=== PATIENT | female | born 1945 | race Caucasian/White ===

== ENCOUNTER 2019-12-14 13:54 | Outpatient (CLI) | payer MEDICARE, SELFPAY ==
--- NOTE | ~2019-12-14 | DEXA_ITS ---
Bone Density Report Name: Joanna Mancilla Age: 74 Sex: Female Ethnicity: White Date of : 1945 Indication: postmenopausal; parental hip fracture; inflammatory bowel disease; Referring Provider: Delmy Carrero Study: Bone densitometry was performed. Exam Date: December 14, 2019 Accession number: [id number] Bone Density: Region BMD T-score Z-score Classification AP Spine (L1-L4) 0.901 -1.3 1.0 Osteopenia Femoral Neck (Left) 0.715 -1.2 0.8 Osteopenia Total Hip (Left) 0.781 -1.3 0.4 Osteopenia Total Hip Bilateral Avg 0.769 -1.4 0.3 Osteopenia Femoral Neck (Right) 0.726 -1.1 0.9 Osteopenia Total Hip (Right) 0.756 -1.5 0.2 Osteopenia World Health Organization criteria for BMD impression classify patients as: Normal (T-score at or above -1.0), Osteopenia (T-score between -1.0 and -2.5), or Osteoporosis (T-score at or below -2.5). 10-year Fracture Risk(1): Major Osteoporotic Fracture 15% Hip Fracture 5.3% Reported Risk Factors: [place] (), Neck BMD=0.715, BMI=28.8, parental fracture (1) FRAX(R) Version 3.08. Fracture probability calculated for an untreated patient. Fracture probability may be lower if the patient has received treatment. Clinical Information Provided by Patient: Parent has had a hip fracture Has the following medical conditions: Inflammatory bowel diseases Patient maximum height was 64 Menopause Age: 46 Drinks caffeinated beverages Onset of menses at age 14 Number of children 1 Impression: The patient has low bone mass, based on the Right Total Hip T-score. The patient has an estimated ten-year risk of hip fracture of 5.3% and an estimated ten-year risk of major fracture of 15%, based on the WHO FRAX algorithm. The patient has risk factors, including: parental hip fracture. Discussion: BONE DENSITY IS LOW AT ONE OR MORE SKELETAL SITES. THE PATIENT'S BMD AND CLINICAL RISK FACTORS CONTRIBUTE TO THIS PATIENT'S INCREASED RISK OF FRACTURE. This patient's lowest T-score is low at one or more skeletal sites. It meets the World Health Organization's (WHO) criteria for ?low bone mass? (T-score between -1.0 and -2.5). The patient's 10-year risk of hip fracture as calculated by FRAX exceeds the threshold where pharmacological therapy is recommended by the National Osteoporosis Foundation (NOF). However, all treatment decisions require clinical judgment and consideration of individual patient factors, including patient preferences, comorbidities, previous drug use, risk factors not captured in the FRAX model (e.g., frailty, falls, vitamin D deficiency, increased bone turnover, interval significant decline in bone density) and possible under or overestimation of fracture risk by FRAX. The patient should follow a healthful lifestyle (good nutrition with adequate calcium and vitamin D, and a
--- NOTE | ~2019-12-14 | MM_ITS ---
EXAMINATION: MM screening josé miguel BI w sari HISTORY: Screening mammogram TECHNIQUE: Craniocaudal and mediolateral oblique 3-D tomosynthesis images were obtained and synthetic 2-D images were generated. CAD analysis was submitted and interpreted. COMPARISON: No prior mammogram is available for comparison at this institution. BREAST PARENCHYMAL COMPOSITION: The breasts are almost entirely fatty. FINDINGS: RIGHT BREAST: An asymmetry is present in the subareolar aspect of the breast on the craniocaudal view . LEFT BREAST: There is a mass in the posterior third of the lower inner breast 9 cm from the nipple.. IMPRESSION: 1. Bilateral breast findings as detailed above. 2. Additional mammographic views and possible breast ultrasound are recommended. BI-RADS Category 0: Incomplete: Needs additional imaging evaluation. Reviewed, dictated and finalized at location A. R ARBITRATOR HEARING OFFICE IMPRESSION: 1. Bilateral breast findings as detailed above. 2. Additional mammographic views and possible breast ultrasound are recommended . BI-RADS Category 0: Incomplete: Needs additional imaging evaluation.
== END 2019-12-14 13:55 | disposition home or self-care (01) ==
LOC: ANHIMG 14:05
PROVIDERS: PCP Family Medicine; Visit Provider Family Medicine
DX: Z12.31 Encounter for screening mammogram for malignant neoplasm of breast (principal); Z78.0 Asymptomatic menopausal state; R92.8 Other abnormal and inconclusive findings on diagnostic imaging of breast; M85.88 Other specified disorders of bone density and structure, other site; M85.852 Other specified disorders of bone density and structure, left thigh; M85.851 Other specified disorders of bone density and structure, right thigh
CPT/HCPCS: 77063; 77067; 77080

== ENCOUNTER 2020-01-06 11:43 | Outpatient (CLI) | payer MEDICARE, SELFPAY ==
--- NOTE | ~2020-01-06 | MMUS_ITS ---
EXAMINATION: MM diagnostic mammo unilat LT, US breast LT limited HISTORY: Follow-up left breast mass TECHNIQUE: Additional 3-D tomosynthesis images of the left breast were performed and synthetic 2-D im ages were generated. CAD analysis was submitted and interpreted. High resolution left breast ultrasou nd was performed. COMPARISON: Comparison to multiple prior studies sequentially, with oldest reviewed study dated 03/2017. FINDINGS: MAMMOGRAPHIC FINDINGS: Breast composed of scattered areas of fibroglandular density. There is a 7 mm spiculated mass in the lower central aspect of the left breast posteriorly. There are no suspicious calcifications or cheri ectural distortion. ULTRASOUND: Left breast ultrasound: At 5:00, 3 cm from the nipple, there is an irregular shaped hypoechoic mass with posterior shadowing and antiparallel configuration measuring 6 x 5 x 5 mm,. At 9:00 near the nipple there is a 3 mm cyst. IMPRESSION: 1. Irregular shaped hypoechoic 6 mm left breast mass at 5:00, 3 cm from the nipple, likely correspond ing to the mammographic finding. Ultrasound-guided biopsy recommended. BI-RADS CATEGORY 4-SUSPICIOUS ABNORMALITY RECOMMENDATION: Ultrasound-guided left breast biopsy recommended. Recommend attention to tissue marke r placement postbiopsy to ensure that the sonographic and mammographic abnormalities are the same. Reviewed, dictated and finalized at location A. MACHINE OPERATOR HELPER IMPRESSION: 1. Irregular shaped hypoechoic 6 mm left breast mass at 5:00, 3 cm from the nip ple, likely corresponding to the mammographic finding. Ultrasound-guided biopsy recommended. BI-RADS CATEGORY 4-SUSPICIOUS ABNORMALITY RECOMMENDATION: Ultrasound-guided left breast biopsy recommended. Recommend att ention to tissue marker placement postbiopsy to ensure that the sonographic and mammographic abnormalities are the same.
== END 2020-01-06 11:44 | disposition home or self-care (01) ==
PROVIDERS: PCP Family Medicine; Visit Provider Family Medicine
DX: R92.8 Other abnormal and inconclusive findings on diagnostic imaging of breast (principal); N63.20 Unspecified lump in the left breast, unspecified quadrant
CPT/HCPCS: 76642; 77065

== ENCOUNTER 2020-01-12 08:58 | Outpatient (CLI) | payer MEDICARE, SELFPAY ==
--- NOTE | ~2020-01-12 | US_ITS ---
EXAMINATION: US GUIDED NEEDLE BIOPSY DATE: 01/12/2020 11:12 PRIVATE DUTY AIDE INDICATION: Irregular hypoechoic 6 x 5 mm mass with posterior shadowing and antiparallel configuratio n at 5:00 3 cm from nipple TECHNIQUE AND FINDINGS: The risks and potential benefits of the procedure were discussed with the patient, and written inform ed consent was obtained. Timeout procedure was performed. After sterile preparation of the left breas t, 1% lidocaine was utilized for local anesthesia. A 14G spring-loaded biopsy gun needle was advanced to the edge of the region of interest from a later al medial approach utilizing sonographic guidance. A total of three tissue core samples were obtaine d through the lesion. An Inrad tissue marker clip was then placed at the biopsy site. Hemostasis was achieved. A sterile bandage was applied. The patient tolerated procedure well and there was no evidence of immediate complication. The patien t was given verbal instructions prior to departing from the department. A two view mammogram was perf ormed to document tissue marker clip placement. The tissue samples were submitted to surgical patholo gy for histologic analysis. IMPRESSION: 1. Successful ultrasound guided biopsy of left breast 5:00 breast mass with biopsy marker placement. Please refer to pathology report for histologic analysis. Reviewed, dictated and finalized at Location A. Reviewed, dictated and finalized at location A. ATE DUTY AIDE IMPRESSION: 1. Successful ultrasound guided biopsy of left breast 5:00 breast mass with bi opsy marker placement. Please refer to pathology report for histologic analysis .
--- NOTE | ~2020-01-12 | MM_ITS ---
MM post biopsy invasive LT DATE: 01/12/2020 10:48 INDICATION: Post ultrasound-guided biopsy mammogram TECHNIQUE: Digital ML and CC views of left breast following ultrasound-guided biopsy of 5:00 lesion COMPARISON: 05/28/2018 outside bilateral digital mammogram FINDINGS: A heart biopsy marker is immediately adjacent to an approximately 7 mm mass in the posterio r aspect of the central lower mid left breast. IMPRESSION: Status post ultrasound-guided biopsy of lower mid left breast mass Reviewed, dictated and finalized at Location A. Reviewed, dictated and finalized at location A. RNET PROJECT MANAGER
== END 2020-01-12 08:59 | disposition home or self-care (01) ==
PROVIDERS: PCP Family Medicine; Visit Provider Family Medicine
DX: R92.8 Other abnormal and inconclusive findings on diagnostic imaging of breast (principal); D05.12 Intraductal carcinoma in situ of left breast
CPT/HCPCS: 19083; 88305; 88342

== ENCOUNTER 2021-09-05 07:38 | Outpatient (CLI) | payer MEDICARE, OTHER, SELFPAY ==
--- NOTE | ~2021-09-05 | XR_ITS ---
EXAMINATION: XR abdomen/kub 1V INDICATION: Right upper quadrant pain TECHNIQUE: Supine views of the abdomen were obtained on 2 radiographs. COMPARISON: None FINDINGS: The bowel gas pattern is normal. There are phleboliths of the pelvis. A moderate volume of colonic stool is present. Osteitis pubis is noted. There is mild osteoarthritis of the hips. Lumbar s pondylosis is noted. There is an area of sclerosis in the left superior pubic ramus. IMPRESSION: 1. No radiographic correlate for the patient's symptoms. 2. Sclerotic lesion of the left superior pubic ramus. Finding could reflect a bone island however giv en patient's history of breast cancer, consider further evaluation with bone scan. Reviewed, dictated and finalized at location A. IMPRESSION: 1. No radiographic correlate for the patient's symptoms. 2. Sclerotic lesion of the left superior pubic ramus. Finding could reflect a b one island however given patient's history of breast cancer, consider further e valuation with bone scan.
== END 2021-09-05 07:39 | disposition home or self-care (01) ==
LOC: ANHIMG 07:41
PROVIDERS: PCP Family Medicine; Visit Provider Family Medicine
DX: R10.11 Right upper quadrant pain (principal); Z85.3 Personal history of malignant neoplasm of breast
CPT/HCPCS: 74018

== ENCOUNTER 2021-09-20 09:19 | Outpatient (CLI) | payer MEDICARE, SELFPAY ==
--- NOTE | ~2021-09-20 | NM_ITS ---
EXAMINATION: NM bone scan whole body DATE: 09/20/2021 12:37 INDICATION: Sclerotic lesion in left superior pubic ramus. Breast cancer. TECHNIQUE: 25.9 mCi Tc-99m HDP was administered intravenously. Delayed whole-body scintigrams were o btained. COMPARISON: Abdomen radiographs 09/05/2021 FINDINGS: There is joint-centered increased activity in the shoulders, knees, hands, and feet without radiographic comparison, likely osteoarthritis. There is focal increased activity in multiple contig uous bilateral ribs, consistent with age indeterminant fractures. There is increased activity in the spine correlating with spondylosis on radiographs. IMPRESSION: 1. No specific evidence of metastatic disease. Reviewed, dictated and finalized at location A. RITY RESEARCHER
--- NOTE | ~2021-09-20 | US_ITS ---
US right upper quadrant INDICATION: Right upper quadrant pain PROCEDURE: Realtime right upper abdominal ultrasound. COMPARISON: No prior studies for comparison. FINDINGS: The pancreas is normal without focal mass or pancreatic ductal dilation. Liver echotexture is normal without focal mass or intrahepatic biliary dilatation. There is normal directional flow i n the portal vein. The gallbladder is normal without stones, gallbladder wall thickening or pericholecystic fluid. Comm on bile duct measures 3 mm. No sonographic Davis's sign. IMPRESSION: 1: Normal limited abdominal ultrasound. Reviewed, dictated and finalized at location A. KLAYER HELPER
== END 2021-09-20 09:20 | disposition home or self-care (01) ==
LOC: ANHIMG 09:20
PROVIDERS: PCP Family Medicine; Visit Provider Family Medicine
DX: R10.11 Right upper quadrant pain (principal); R93.89 Abnormal findings on diagnostic imaging of other specified body structures
CPT/HCPCS: 76705; 78306; A9561

== ENCOUNTER 2022-04-05 08:26 | Outpatient (CLI) | payer MEDICARE, SELFPAY ==
--- NOTE | ~2022-04-05 | DEXA_ITS ---
Bone Density Report Name: CAROLINA CONRAD Age: 76 Sex: Female Ethnicity: White Date of : 1945 Indication: osteopenia; monitoring treatment; parental hip fracture; height loss; inflammatory bowel disease; prior fracture; cancer; postmenopausal Referring Provider: ESEQUIEL, ELMER Bustos Study: Bone densitometry was performed. Exam Date: April 05, 2022 Accession number: [id number] Bone Density: Region BMD T-score Z-score Classification AP Spine(L1, L2, L3) 0.821 -1.8 0.6 Osteopenia Femoral Neck (Left) 0.565 -2.6 -0.4 Osteoporosis Total Hip (Left) 0.729 -1.7 0.1 Osteopenia Femoral Neck (Right) 0.637 -1.9 0.2 Osteopenia Total Hip (Right) 0.677 -2.2 -0.3 Osteopenia Total Hip Mean 0.703 -2.0 -0.1 Osteopenia World Health Organization criteria for BMD impression classify patients as: Normal (T-score at or above -1.0), Osteopenia (T-score between -1.0 and -2.5), or Osteoporosis (T-score at or below -2.5). 10-year Fracture Risk: FRAX not reported because: Some T-score for Spine Total or Hip Total or Femoral Neck at or below -2.5 Treated for osteoporosis Previous Exams: Region Exam Age BMD T-score BMD Change BMD Change Date g/cm2 vs Baseline vs Previous AP Spine (L1-L3) 04/05/2022 76 0.821 -1.8 -0.040 (-4.6%) -0.040 (-4.6%) 12/14/2019 74 0.861 -1.4 Total Hip(Left) 04/05/2022 76 0.729 -1.7 -0.052 (-6.6%) -0.052 (-6.6%) 12/14/2019 74 0.781 -1.3 Total Hip(Right) 04/05/2022 76 0.677 -2.2 -0.080 (-10.5% -0.080 (-10.5% 12/14/2019 74 0.756 -1.5 *Denotes significance at 95% confidence level, LSC for AP Spine = 0.022 g/cm2, LSC for Total Hip = 0.027 g/cm2 # Denotes dissimilar scan types or analysis methods Clinical Information Provided by Patient: Has had a low trauma fracture Parent has had a hip fracture Is being treated for osteoporosis Has used the following medications: Fosamax (i.e. alendronate), Vitamin D, Calcium Has the following medical conditions: Cancer, Inflammatory bowel diseases Patient maximum height was 64 Menopause Age: 46 Drinks caffeinated beverages Onset of menses at age 13 Number of children 1 Impression: The patient has established osteoporosis, based on the Left Femoral Neck T-score and the existence of a prior fracture. The patient has risk factors, including: parental hip fracture, previous fracture. No significant bone loss was observed. Discussion: PATIENT UNDER TREATMENT WITH NO SIGNIFICANT BMD
== END 2022-04-05 08:27 | disposition home or self-care (01) ==
PROVIDERS: PCP Family Medicine; Visit Provider Internal Medicine Medical Oncology
DX: M81.0 Age-related osteoporosis without current pathological fracture (principal); M85.88 Other specified disorders of bone density and structure, other site; M85.851 Other specified disorders of bone density and structure, right thigh; Z79.811 Long term (current) use of aromatase inhibitors; C50.512 Malignant neoplasm of lower-outer quadrant of left female breast; Z17.0 Estrogen receptor positive status [ER+]; Z13.820 Encounter for screening for osteoporosis; C18.2 Malignant neoplasm of ascending colon; Z15.89 Genetic susceptibility to other disease; Z15.01 Genetic susceptibility to malignant neoplasm of breast; Z15.09 Genetic susceptibility to other malignant neoplasm; M85.852 Other specified disorders of bone density and structure, left thigh
CPT/HCPCS: 77080

== ENCOUNTER 2022-04-10 01:07 | Day surgery (SDC) | payer MEDICARE, SELFPAY ==
[2022-03-29 09:20] VITALS: BMI 31.1
[2022-04-10 07:44] VITALS: BP 146/93; PULSE 64; RESP 18; TEMP 36.7; O2SAT 100; BMI 31.1
[2022-04-10] MEDS: LACTATED RINGERS 1,000 ML 150 ML IV CONT (07:53)
--- NOTE | 2022-04-10 08:14 | WPDANESEPPF ---
Anes - Initial Pre Proc Eval Procedure: Operation Date: 04/10/22 09:00 Proposed Procedures p Colonoscopy - Nate Young MD Date/Time: 04/10/22 08:14 Surgeon: Nate Young MD Pre Op Diagnosis: change in bowel habits; fam hx colon ca Patient Data Age: 76 Gender: F Height: 1.6 m Weight: 79.7 kg Last Vital Signs Temp 98.0 F 04/10/22 07:44 Pulse 64 04/10/22 07:44 Resp 18 04/10/22 07:44 BP 146/93 H 04/10/22 07:44 Pulse Ox 100 04/10/22 07:44 O2 Del Method Room Air 04/10/22 07:44 Allergies Allergy/AdvReac Type Severity Reaction Status Date / Time Sulfa (Sulfonamide AdvReac Unknown Headache Verified 04/10/22 07:42 Antibiotics) Home Medications Medication Instructions Recorded Confirmed Type calcium carbonate 600 mg calcium 600 mg PO BID 01/18/20 04/10/22 History (1,500 mg) tablet cholecalciferol (vitamin D3) 10 400 unit PO DAILY 01/18/20 04/10/22 History mcg (400 unit) tablet (Vitamin D3) letrozole 2.5 mg tablet 2.5 mg PO DAILY 05/19/20 04/10/22 History alendronate 35 mg tablet See Rx Instructions .Route 12/12/21 04/10/22 Rx .COMPLEX #12 tabs lisinopril 5 mg tablet See Rx Instructions .Route 02/11/22 04/10/22 Rx .COMPLEX #90 tabs lisinopril 20 mg tablet 20 mg PO DAILY #90 tabs 02/28/22 04/10/22 Rx vit C 250 mg-E 90 mg-zinc 40 1 tablet PO QAM AND QPM 03/14/22 04/10/22 History mg-copper 1 [id number] chew tablet (PreserVision AREDS-2) Patient hx anesthesia problems: none Family hx anesthesia problems: none Results Review: All pre-operative results and documents have been reviewed as part of the pre-operative evaluation. 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 Microscopic hematuria Osteopenia Surgical History Surgical History History of cataract extraction (~2015) History of lumpectomy of left breast (~2019) History of tonsillectomy (~1965) Family History Family History Mother Diabetes mellitus Family history of osteoporosis Family history of glaucoma Hypertension Cerebrovascular accident Carcinoma of colon Family history of lung disease Family history of hearing loss Father Family history of glaucoma Hypertension Family history of chronic obstructive pulmonary disease Family history of congestive heart failure Sibling Family history of malignant melanoma Social History Social History (Updated 03/14/22 @ 09:31 by Eileen Herrera [facility]) Smoking packs per day: 1 Smoking cigarettes per day: 20.0 Years smoked: 10 Smoking pack-years: 10.00 Tobacco type: cigarettes Smoking end date: 11/10/80 Alcohol intake: current Alcohol use details: very occasional Substance use: never Substance use type: does not use Living arrangements: alone Spiritual care concerns: No Anes - Eval Final PreProcedure Day of Procedure 04/10/22 08:14 Patient weight: obese Heart: regular rate and rhythm Lungs: clear to auscultation Airway: Mallampati scale class II Neurological: alert and oriented Last oral intake: >/= 8 hours ASA classification: III Emergent: no Anesthetic plan: proceed Anesthesia type and monitoring: general GIVS and standard monitoring Results Review: All pre-operative results and documents have been reviewed as part of the pre-operative evaluation. Informed Consent: The patient's anesthetic plan and its attendant risks and benefits were discussed with the patient/family/POA. Questions were solicited and answers provided to the satisfaction of the patient/family/POA.
--- NOTE | 2022-04-10 08:17 | WPDGICN ---
Assessment and Plan Assessment and plan (1) Family history of colon cancer in mother: Code(s): Z80.0 - Family history of malignant neoplasm of digestive organs Status: Acute Assessment and Plan: Patient's mother had colon cancer. For this reason surveillance colonoscopy had been advised at 5 year intervals. (2) History of colon polyps: Code(s): Z86.010 - Personal history of colonic polyps Status: Acute Assessment and Plan: Patient has a prior history of colon polyps. Most recently 2016. Plan is for surveillance colonoscopy now and consider this at intervals in the future. Patient does have a recent history of constipation the is improved on taking MiraLax. GI Consult Note Consult date/time: 04/10/22 08:17 Reason for consult: Family history of colon cancer and personal history of polyps. HPI: Joanna Mancilla is a 76 year old female Presents for colonoscopy. She recently had bout of constipation. This occurred 1 month ago and improved on starting MiraLax. She reports that her mother had colon cancer. She has previously had colonoscopy with colon polyps 2016. Patient denies any blood in her stools. Her weight remains stable. She has had some vague low back pain. She presents today for neoplasia screening colonoscopy. Review of Systems Review of Systems: Review of systems noncontributory. 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 Microscopic hematuria Osteopenia Surgical History Surgical History History of cataract extraction (~2015) History of lumpectomy of left breast (~2019) History of tonsillectomy (~1965) Family History Family History Mother Diabetes mellitus Family history of osteoporosis Family history of glaucoma Hypertension Cerebrovascular accident Carcinoma of colon Family history of lung disease Family history of hearing loss Father Family history of glaucoma Hypertension Family history of chronic obstructive pulmonary disease Family history of congestive heart failure Sibling Family history of malignant melanoma Social History Social History (Updated 03/14/22 @ 09:31 by Eileen Herrera [facility]) Smoking packs per day: 1 Smoking cigarettes per day: 20.0 Years smoked: 10 Smoking pack-years: 10.00 Tobacco type: cigarettes Smoking end date: 11/10/80 Alcohol intake: current Alcohol use details: very occasional Substance use: never Substance use type: does not use Living arrangements: alone Spiritual care concerns: No Meds Home Medications and Allergies Home Medications Medication Instructions Recorded Confirmed Type calcium carbonate 600 mg calcium 600 mg PO BID 01/18/20 04/10/22 History (1,500 mg) tablet cholecalciferol (vitamin D3) 10 400 unit PO DAILY 01/18/20 04/10/22 History mcg (400 unit) tablet (Vitamin D3) letrozole 2.5 mg tablet 2.5 mg PO DAILY 05/19/20 04/10/22 History alendronate 35 mg tablet See Rx Instructions .Route 12/12/21 04/10/22 Rx .COMPLEX #12 tabs lisinopril 5 mg tablet See Rx Instructions .Route 02/11/22 04/10/22 Rx .COMPLEX #90 tabs lisinopril 20 mg tablet 20 mg PO DAILY #90 tabs 02/28/22 04/10/22 Rx vit C 250 mg-E 90 mg-zinc 40 1 tablet PO QAM AND QPM 03/14/22 04/10/22 History mg-copper 1 [id number] chew tablet (PreserVision AREDS-2) Allergies Allergy/AdvReac Type Severity Reaction Status Date / Time Sulfa (Sulfonamide AdvReac Unknown Headache Verified 04/10/22 07:42 Antibiotics) Vital Signs Vital Signs - 24 hr 04/10/22 07:44 Temperature 98.0 F Pulse Rate 64 Respiratory Rate 18 Blood Pres
[2022-04-10 09:29] VITALS: BP 126/70; PULSE 66; RESP 15; O2SAT 97
[2022-04-10 09:39] VITALS: BP 122/78; PULSE 61; RESP 17; O2SAT 98
[2022-04-10 09:49] VITALS: BP 148/81; PULSE 56; RESP 15; O2SAT 100
== END 2022-04-10 09:57 | disposition home or self-care (01) ==
PROVIDERS: PCP Family Medicine; Visit Provider Internal Medicine Gastroenterology
PROC: 0DJD8ZZ Inspection of Lower Intestinal Tract, Via Natural or Artificial Opening Endoscopic (ICD-10-PCS; CPT 45378; principal; 2022-04-10 09:00)
DX: Z12.11 Encounter for screening for malignant neoplasm of colon (principal); K57.30 Diverticulosis of large intestine without perforation or abscess without bleeding; K64.8 Other hemorrhoids; Z80.0 Family history of malignant neoplasm of digestive organs; Z86.010 Personal history of colon polyps; I10 Essential (primary) hypertension; F32.A Depression, unspecified; Z85.3 Personal history of malignant neoplasm of breast; Z87.891 Personal history of nicotine dependence; E66.9 Obesity, unspecified; Z68.31 Body mass index [BMI] 31.0-31.9, adult
CPT/HCPCS: G0105; J2001; J2704; J7120

== ENCOUNTER 2022-05-09 12:56 | Outpatient (CLI) | payer MEDICARE, SELFPAY ==
--- NOTE | ~2022-05-09 | US_ITS ---
US soft tissue head and neck 05/09/2022 15:01 Indication: Localized swelling, mass and lump of the head. Procedure: High-resolution Limited ultrasound of the right occipital region Comparison: No prior studies for comparison. Findings: In the area of palpable concern there is a hypoechoic oval-shaped mass with parallel orient ation measuring 7 x 7 x 2 mm. There is internal vascularity. No significant posterior features. Impression: 1: 7 mm oval hypoechoic mass of the right occipital soft tissues with internal vascularity. This may represent a pathologic lymph node or complicated sebaceous cysts. Consider surgical excision. Reviewed, dictated and finalized at location A. Impression: 1: 7 mm oval hypoechoic mass of the right occipital soft tissues with internal vascularity. This may represent a pathologic lymph node or complicated sebaceou s cysts. Consider surgical excision.
== END 2022-05-09 12:57 | disposition home or self-care (01) ==
PROVIDERS: PCP Family Medicine; Visit Provider Family Medicine
DX: R22.0 Localized swelling, mass and lump, head (principal); Z85.3 Personal history of malignant neoplasm of breast
CPT/HCPCS: 76536

== ENCOUNTER 2022-05-16 10:56 | Outpatient (CLI) | payer MEDICARE, SELFPAY ==
--- NOTE | ~2022-05-16 | CT_ITS ---
EXAMINATION: CT brain wo/w con DATE: 05/16/2022 11:46 INDICATION: Palpable lump behind the right ear. TECHNIQUE: Computed tomography (CT) of the head was performed without and with 100 cc Omnipaque 300 i ntravenous contrast. The dose-length product was 605.33 mGy-cm. Automated exposure control and iterat mariana reconstruction technique were employed. COMPARISON: None FINDINGS: Mild generalized brain parenchymal volume loss. There are scattered mild periventricular an d subcortical white matter changes, most likely related to small vessel ischemic disease (microangiop athy). Basilar cisterns are patent. No ventriculomegaly or midline shift. No acute intracranial hemor rhage, infarction, mass or mass effect. There is intracranial atherosclerosis. No abnormal contrast e nhancement. Paranasal sinuses and mastoids are pneumatized. No depressed skull fractures. IMPRESSION: 1. No acute intracranial abnormality. 2: Chronic age-related findings. Reviewed, dictated and finalized at location A.
--- NOTE | ~2022-05-16 | CT_ITS ---
EXAMINATION: CT soft tissue neck w con DATE: 05/16/2022 11:47 INDICATION: Cervical lymphadenopathy TECHNIQUE: Computed tomography (CT) of the neck was performed with 75 mL Omnipaque-300 intravenous co ntrast. Automated exposure control and iterative reconstruction technique were employed. The dose-emilia gth product was 455.39 mGy-cm. COMPARISON: None FINDINGS: Visualized upper lungs are clear. Thoracic aorta is normal in caliber with minimal atherosc lerotic calcification and no dissection. Left vertebral artery is dominant. Cervical vasculature is o therwise unremarkable. Multinodular goiter with largest nodule measuring 1.3 cm in the left thyroid g land. Bilateral parotid and submandibular glands are normal. There are scattered normal-sized lymph n odes in the neck, no lymphadenopathy. C5 interval decrease in size of a previously 7 x 7 x 3 mm, curr ently 5 x 5 x 3 mm scalp nodules in the right occipital region likely representing a previously react mariana lymph node. No other abnormal masses identified. Airway is unremarkable. Changes of bilateral int raocular lens replacement. The orbits are otherwise normal. Visualized sinuses and mastoid air cells are normal. Moderate lower cervical spondylosis. IMPRESSION: 1. Interval decrease in size of a previously 7 x 7 x 3 mm, currently 5 x 5 x 3 mm right occipital sca lp nodule most likely reactive lymph node. No pathologically enlarged cervical lymphadenopathy. 2. Multinodular goiter with nodules measuring up to 1.3 cm. Reviewed, dictated and finalized at location A. IMPRESSION: 1. Interval decrease in size of a previously 7 x 7 x 3 mm, currently 5 x 5 x 3 mm right occipital scalp nodule most likely reactive lymph node. No pathologica lly enlarged cervical lymphadenopathy. 2. Multinodular goiter with nodules measuring up to 1.3 cm.
[2022-05-16 11:27] LABS: Estimated Glomerular Filt Rate > 60
== END 2022-05-16 10:57 | disposition home or self-care (01) ==
PROVIDERS: PCP Family Medicine; Visit Provider Internal Medicine Medical Oncology
DX: R59.9 Enlarged lymph nodes, unspecified (principal); E04.2 Nontoxic multinodular goiter
CPT/HCPCS: 70470; 70491; Q9967

== ENCOUNTER 2022-12-03 09:47 | Outpatient (CLI) | payer MEDICARE, OTHER, SELFPAY ==
[2022-12-03 19:58] LABS: Alanine Aminotransferase 24 U/L (6-35); Alkaline Phosphatase 94 U/L (38-126); Anion Gap 5 mmol/L (8-16); Aspartate Amino Transferase 32 U/L (14-36); Bilirubin,Total 0.5 mg/dL (0.2-1.3); Blood Urea Nitrogen 22 mg/dL (7-17); Calcium 9.4 mg/dL (8.4-10.2); Carbon Dioxide 30 mmol/L (22-30); Chloride 102 mmol/L (98-107); Cholesterol 183 mg/dL (0-200); Estimated Glomerular Filt Rate > 60; Glucose 87 mg/dL (65-110); HDL Direct 53 mg/dL; Sodium 137 mmol/L (137-145); Triglycerides 119 mg/dL (<150)
[2022-12-03 20:09] LABS: LDL Cholesterol Direct 82 mg/dL
[2022-12-03 20:20] LABS: Vitamin D 25 Hydroxy 45.7 ng/mL
== END 2022-12-03 09:48 | disposition home or self-care (01) ==
LOC: ANHGOSHLAB 09:49
PROVIDERS: PCP Family Medicine; Visit Provider Nurse Practitioner
DX: E78.5 Hyperlipidemia, unspecified (principal); E55.9 Vitamin D deficiency, unspecified
CPT/HCPCS: 36415; 80053; 80061; 82306

== ENCOUNTER 2023-04-02 09:39 | Outpatient (CLI) | payer MEDICARE, SELFPAY ==
[2023-04-02 13:25] LABS: Alanine Aminotransferase 23 U/L (6-35); Albumin Level 3.9 g/dL (3.5-5.1); Alkaline Phosphatase 97 U/L (38-126); Anion Gap 5 mmol/L (8-16); Aspartate Amino Transferase 39 U/L (14-36); Bilirubin,Total 0.4 mg/dL (0.2-1.3); Blood Urea Nitrogen 30 mg/dL (7-17); Calcium 9.3 mg/dL (8.4-10.2); Carbon Dioxide 30 mmol/L (22-30); Chloride 103 mmol/L (98-107); Cholesterol 161 mg/dL (0-200); Estimated Glomerular Filt Rate > 60; Glucose 88 mg/dL (65-110); HDL Direct 56 mg/dL; Potassium 4.1 mmol/L (3.4-5.0); Sodium 138 mmol/L (137-145); Triglycerides 74 mg/dL (<150)
[2023-04-02 13:36] LABS: LDL Cholesterol Direct 73 mg/dL
== END 2023-04-02 09:40 | disposition home or self-care (01) ==
LOC: ANHGOSHLAB 09:40
PROVIDERS: PCP Family Medicine; Visit Provider Family Medicine
DX: E78.5 Hyperlipidemia, unspecified (principal); I10 Essential (primary) hypertension; Z79.899 Other long term (current) drug therapy
CPT/HCPCS: 36415; 80053; 80061

== ENCOUNTER 2023-05-08 16:08 | Emergency (ER) | payer MEDICARE, SELFPAY ==
[2023-05-08 16:18] VITALS: BP 124/88; PULSE 76; RESP 16; TEMP 36.8; O2SAT 99
--- NOTE | 2023-05-08 16:18 | ED.ABDPAIN ---
HPI - Abdominal Pain General Chief Complaint: Nausea/Vomiting/Diarrhea Stated Complaint: nausea & diarrhea Time Seen by Provider: 05/08/23 16:18 Source: patient, RN notes reviewed and old records reviewed Mode of arrival: ambulatory Limitations: no limitations History of Present Illness HPI narrative: 78-year-old female presents to the [facility] with complaints of diarrhea. Patient states that she has 3 episodes of diarrhea every morning since starting antibiotics. Patient was recently diagnosed with the UTI, started some Macrobid, could not tolerate the symptoms, primary switched to Cipro. Reports finishing the Cipro 4 days ago. No longer has the urinary symptoms but states that she has had 3 loose stools every morning. Denies and any abdominal pain. No fevers. Tolerating food and liquid without issue. Patient states that she has concern for C diff, explained to patient that we cannot test that she can contact her primary or go to the ER. Related Data Home Medications Medication Instructions Recorded Confirmed calcium carbonate 600 mg calcium 600 mg PO BID 01/18/20 04/04/23 (1,500 mg) tablet cholecalciferol (vitamin D3) 10 400 unit PO DAILY 01/18/20 04/04/23 mcg (400 unit) tablet (Vitamin D3) letrozole 2.5 mg tablet 2.5 mg PO DAILY 05/19/20 04/04/23 vit C 250 mg-E 90 mg-zinc 40 1 tablet PO QAM AND QPM 03/14/22 04/04/23 mg-copper 1 ls-vrjgen-lpehag chew tablet (PreserVision AREDS-2) denosumab 60 mg/mL subcutaneous 60 mg subcut [id number] 07/18/22 04/04/23 syringe (Prolia) ketoconazole 2 % topical cream 1 applic topical BID 04/04/23 04/04/23 mupirocin 2 % topical ointment 1 applic topical BID 04/04/23 04/04/23 Allergies Allergy/AdvReac Type Severity Reaction Status Date / Time nitrofurantoin AdvReac Intermediate Diarrhea Verified 05/01/23 08:52 Sulfa (Sulfonamide AdvReac Unknown Headache Verified 04/04/23 09:23 Antibiotics) Review of Systems Review of Systems: All systems reviewed & are unremarkable except as noted in HPI and below Constitutional: Constitutional: Reports no additional constitutional complaints Eyes: Eyes: Reports no additional eye complaints ENT: Reports system reviewed and no additional complaints, except as documented Cardiovascular: Cardiovascular: Reports no additional cardiovascular complaints, Denies chest pain and Denies dyspnea Respiratory: Respiratory: Reports no additional respiratory complaints, Denies chest congestion, Denies cough and Denies dyspnea Gastrointestinal: Gastrointestinal: Reports as per HPI, Denies abdominal pain, Reports diarrhea, Denies nausea and Denies vomiting Musculoskeletal: Musculoskeletal: Reports no additional musculoskeletal complaints Integumentary/Breasts: Skin/Breast: Reports system reviewed and no additional complaints, except as docu Neurologic: Reports system reviewed and no additional complaints, except as documented Psychiatric: Psychiatric: Reports no additional psychiatric complaints Allergic/Immunologic: Allergic/Immunologic: Reports no additional allergic/immunologic complaints [facility] Past Medical History Medical History Arthritis Carcinoma of left breast Depression Diverticulitis Hammer toe (~08/2016) Hepatitis C antibody test negative (07/18/21) 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
== END 2023-05-08 16:45 | disposition home or self-care (01) ==
PROVIDERS: Emergency Provider Nurse Practitioner; PCP Family Medicine
DX: R19.7 Diarrhea, unspecified (principal); Z87.891 Personal history of nicotine dependence; M19.90 Unspecified osteoarthritis, unspecified site; I10 Essential (primary) hypertension; M85.80 Other specified disorders of bone density and structure, unspecified site; Z85.3 Personal history of malignant neoplasm of breast
CPT/HCPCS: 99211; G0463

== ENCOUNTER 2023-06-10 11:05 | Outpatient (CLI) | payer MEDICARE, SELFPAY ==
[2023-06-10 09:16] LABS: Toxigenic C. Diff NEGATIVE (NEGATIVE)
== END 2023-06-10 11:06 | disposition home or self-care (01) ==
PROVIDERS: PCP Family Medicine; Visit Provider Internal Medicine Gastroenterology
DX: R19.7 Diarrhea, unspecified (principal)
CPT/HCPCS: 87045; 87427; 87449; 87493; 89055

== ENCOUNTER 2023-06-20 14:56 | Outpatient (CLI) | payer MEDICARE, SELFPAY ==
[2023-06-20 16:10] LABS: Immature Reticulocyte Fraction 20.6 % (3.0-15.9); Reticulocyte Hemoglobin Conten 32.5 pg (28.2-35.7); Reticulocyte Percent 2.27 % (0.7-4.3); Reticulocytes Absolute 0.08 M/mm3 (0.02-0.1)
[2023-06-20 16:19] LABS: Iron 25 ug/dL (37-170)
[2023-06-20 16:29] LABS: Percent Iron Saturation 9 % (20-50)
[2023-06-20 17:27] LABS: Folic Acid 6.7 ng/mL (2.76->20)
== END 2023-06-20 14:57 | disposition home or self-care (01) ==
LOC: ANHLAB 14:58
PROVIDERS: PCP Family Medicine; Visit Provider Internal Medicine Medical Oncology
DX: R19.7 Diarrhea, unspecified (principal); D64.9 Anemia, unspecified
CPT/HCPCS: 36415; 82607; 82728; 82746; 83540; 83550; 85046

== ENCOUNTER 2023-06-21 07:47 | Outpatient (NON) | payer MEDICARE, SELFPAY ==
[2023-06-29 19:02] LABS: Pancreatic Elastase, Stool 190 mcg/g
== END 2023-06-21 07:48 | disposition home or self-care (01) ==
PROVIDERS: PCP Family Medicine; Visit Provider Internal Medicine Medical Oncology
DX: D64.9 Anemia, unspecified (principal); R19.7 Diarrhea, unspecified
CPT/HCPCS: 82653; 87493

== ENCOUNTER → 2023-07-16 14:00 | Outpatient (CLI) | payer MEDICARE, SELFPAY ==
--- NOTE | ~2023-07-16 | XR_ITS ---
Clinical Indication: Cough PA and lateral of the chest: Comparison: None Findings: The lungs are clear, without evidence of focal consolidation or pleural effusion. Cardiome diastinal silhouette is within normal limits. Bones and soft tissues are unremarkable. Impression: Normal chest. Reviewed, dictated and finalized at location . Impression: Normal chest.
== END ==
PROVIDERS: PCP Family Medicine; Visit Provider Family Medicine
DX: R05.9 Cough, unspecified (principal)
CPT/HCPCS: 71046

== ENCOUNTER → 2023-08-11 14:09 | Outpatient (CLI) | payer MEDICARE, SELFPAY ==
--- NOTE | ~2023-08-11 | XR_ITS ---
XR hip LT min 2V DATE: 08/11/2023 14:18 INDICATION: Left hip pain. No injury. TECHNIQUE: AP and lateral views COMPARISON: None FINDINGS: No fracture or dislocation, avascular necrosis or bone destruction of the left hip is detec teagan. Mild left hip osteoarthritis. Normal alignment at the pubic symphysis and sacroiliac joints. Diffuse osteopenia. IMPRESSION: Mild left hip osteoid arthritis Osteopenia Reviewed, dictated and finalized at location B.
== END ==
PROVIDERS: PCP Family Medicine; Visit Provider Nurse Practitioner
DX: M16.12 Unilateral primary osteoarthritis, left hip (principal); M85.852 Other specified disorders of bone density and structure, left thigh
CPT/HCPCS: 73502

== ENCOUNTER 2023-12-30 07:10 | Emergency (ER) | payer MEDICARE, SELFPAY ==
[2023-12-30] VITALS (12 sets, daily range): BP systolic 138–161; BP diastolic 73–98; PULSE 72–76; RESP 16–18; TEMP 36.9; O2SAT 97–100
--- NOTE | ~2023-12-30 | CT_ITS ---
EXAMINATION: CT facial & cervical spine wo DATE: 12/30/2023 10:35 INDICATION: Head injury TECHNIQUE: Computed tomography (CT) of the maxillofacial region and cervical spine was performed with out intravenous contrast. The dose-length product (DLP) was 164.03 mGy-cm. Automated exposure control and iterative reconstruction technique were employed. COMPARISON: None FINDINGS: MAXILLOFACIAL CT: There are comminuted and displaced bilateral nasal bone fractures. No additional facial fracture is i dentified. The globes and orbits are normal. There is peripheral opacification of the left maxillary sinus. There is eruption of one of the left mandibular molar roots into the maxillary sinus. CERVICAL SPINE CT: There are 2 mm of anterolisthesis of C4 on C5. There is moderate loss of intervertebral disc space he ight at C5-6 and C6-7. The odontoid process is intact. The vertebral body heights are maintained. The re is no fracture. There is moderate bilateral uncovertebral joint osteoarthritis at C5-6 and C6-7. T here is a 1.4 cm nodule of the left thyroid. There is a 5 mm nodule of the right thyroid. IMPRESSION: 1. Comminuted and displaced bilateral nasal bone fractures. 2. Moderate cervical spondylosis without acute findings. Reviewed, dictated and finalized at location L. ER MECHANIC
--- NOTE | ~2023-12-30 | CT_ITS ---
EXAMINATION: CT brain wo con INDICATION: Head injury COMPARISON: 05/16/2022 TECHNIQUE: Standard unenhanced head CT. The dose-length product (DLP) was 605.33 mGy-cm. The mA was a djusted according to patient size. Iterative reconstruction technique was employed. FINDINGS: There is subtle perifalcine hyperdensity anteriorly measuring up to 2 mm in thickness No ac [place] intraparenchymal hemorrhage. No evidence of mass lesion. No evidence of acute infarction. There i s mild periventricular and subcortical hypodensity probably related to small vessel ischemic disease. There is mild prominence of the sulci and ventricles related to cerebral atrophy. Intracranial calci fied cerebral atherosclerosis is noted. No mass effect or midline shift. Changes in the globes are li kaylyn from ocular lens surgery. A fluid level is noted in left maxillary sinus. IMPRESSION: 1. Possible tiny perifalcine subdural hematoma anteriorly. 2. Age related findings. These findings were discussed with Gerri Alvarez PA-C in the Emergency Department at 1100 hours on 12/30/2023. Reviewed, dictated and finalized at location L. T MAINTENANCE SUPERVISOR IMPRESSION: 1. Possible tiny perifalcine subdural hematoma anteriorly. 2. Age related findings. These findings were discussed with Gerri Alvarez PA-C in the Emergency Depar tment at 1100 hours on 12/30/2023.
--- NOTE | ~2023-12-30 | XR_ITS ---
EXAMINATION: XR ribs LT 2V w CXR 2V INDICATION: Left-sided chest pain TECHNIQUE: PA and lateral views of the chest and four views of the left ribs were obtained. COMPARISON: 07/16/2023 FINDINGS: The lungs are free of acute opacities. No pleural effusion or pneumothorax. The cardiomedia stinal silhouette is normal. There is moderate thoracic spondylosis. There is subtle anterolateral ir regularity of the left sixth and seventh ribs. IMPRESSION: 1. Mild anterolateral irregularity of the left sixth and seventh ribs, consistent with age indetermin ate fractures. 2. No acute cardiopulmonary abnormality. Reviewed, dictated and finalized at location L. UMER INSIGHTS SPECIALIST IMPRESSION: 1. Mild anterolateral irregularity of the left sixth and seventh ribs, consiste nt with age indeterminate fractures. 2. No acute cardiopulmonary abnormality.
--- NOTE | 2023-12-30 10:13 | ED.FALL ---
HPI - Fall General Chief Complaint: Fall <Gerri Alvarez PA-C - Last Filed: 12/30/23 19:19> Stated Complaint: tripped and landed on face, nose injury <Gerri Alvarez PA-C - Last Filed: 12/30/23 19:19> Time Seen by Provider: 12/30/23 10:04 <Gerri Alvarez PA-C - Last Filed: 12/30/23 19:19> Source: patient <SAMANTHA Zimmerman Last Filed: 12/30/23 19:19> Mode of arrival: ambulatory <SAMANTHA Zimmerman Last Filed: 12/30/23 19:19> Limitations: no limitations <Gerri Alvarez PA-C - Last Filed: 12/30/23 19:19> History of Present Illness HPI Narrative: This is a 78-year-old female that presents to the emergency department for a fall today with head injury. Reports she tripped and fell forward. She did hit her head, did not lose consciousness. Reports injury to the nose, chin and left side of her ribs. She has been ambulatory since the fall. She is not on any anticoagulation. Denies vision changes, vomiting, numbness or weakness. <Gerri Alvarez PA-C - Last Filed: 12/30/23 19:19> Related Data Home Medications: Home Medications Medication Instructions Recorded Confirmed letrozole 2.5 mg tablet 2.5 mg PO DAILY 05/19/20 12/15/23 vit C 250 mg-E 90 mg-zinc 40 1 tablet PO QAM AND QPM 03/14/22 12/15/23 mg-copper 1 qj-ymmdhl-bmyeoy chew tablet (PreserVision AREDS-2) denosumab 60 mg/mL subcutaneous 60 mg subcut [id number] 07/18/22 12/15/23 syringe (Prolia) ferrous sulfate 325 mg (65 mg mg PO 07/10/23 12/15/23 iron) tablet <SAMANTHA Zimmerman Last Filed: 12/30/23 19:19> Allergies/Adverse Reactions: Allergies Allergy/AdvReac Type Severity Reaction Status Date / Time nitrofurantoin AdvReac Intermediate Diarrhea Verified 12/30/23 07:42 Sulfa (Sulfonamide AdvReac Unknown Headache Verified 12/30/23 07:42 Antibiotics) <Gerri Alvarez PA-C - Last Filed: 12/30/23 19:19> Review of Systems Review of Systems: CONSTITUTIONAL: Denies fever EYES: Denies visual changes CARDIOVASCULAR: Reports rib pain RESPIRATORY: Denies dyspnea. GASTROINTESTINAL: Denies abdominal pain, nausea, vomiting MUSCULOSKELETAL: Denies back pain, joint pain, or myalgia. NEUROLOGIC: Denies numbness, or weakness. <SAMANTHA Zimmerman Last Filed: 12/30/23 19:19> All systems reviewed & are unremarkable except as noted in HPI and below <Gerri Alvarez PA-C - Last Filed: 12/30/23 19:19> [facility] Past Medical History Medical History: Medical History Arthritis Carcinoma of left breast Depression Diverticulitis Hammer toe (~08/2016) Hepatitis C antibody test negative (07/18/21) Hypertension long term use of drug Microscopic hematuria Osteopenia <SAMANTHA Zimmerman Last Filed: 12/30/23 19:19> Surgical History Surgical History: Surgical History History of cataract extraction (~2015) History of lumpectomy of left breast (~2019) History of tonsillectomy (~1965) <Gerri Alvarez PA-C - Last Filed: 12/30/23 19:19> Family History Family History: Family History Mother Diabetes mellitus Family history of osteoporosis Family history of glaucoma Hypertension Cerebrovascular accident Carcinoma of colon Family history of lung disease Family history of hearing loss Father Family history of glaucoma Hypertension Family history of chronic obstructive pulmonary disease Family history of congestive heart failure Sibling Family history of malignant melanoma <SAMANTHA Zimmerman Last Filed: 12/30/23 19:19> Social History Social History: Social History Smoking packs per day: 1 Smoking cigarettes per day: 20.0 Years smoked: 10 Smoking pack-years: 10.00 Smoking status: Former smoker Tobacco type: cigarettes
[2023-12-30] MEDS: ACETAMINOPHEN 500 MG TABLET 1000 MG PO (11:22)
== END 2023-12-30 13:08 | disposition short-term general hospital (02) ==
PROVIDERS: Emergency Provider Physician Assistant; PCP Family Medicine
DX: S06.5XAA Traumatic subdural hemorrhage with loss of consciousness status unknown, initial encounter (principal); S02.2XXA Fracture of nasal bones, initial encounter for closed fracture; S22.42XA Multiple fractures of ribs, left side, initial encounter for closed fracture; M19.90 Unspecified osteoarthritis, unspecified site; I10 Essential (primary) hypertension; M85.80 Other specified disorders of bone density and structure, unspecified site; Z98.49 Cataract extraction status, unspecified eye; Z85.3 Personal history of malignant neoplasm of breast; Z87.891 Personal history of nicotine dependence; M47.812 Spondylosis without myelopathy or radiculopathy, cervical region; W01.0XXA Fall on same level from slipping, tripping and stumbling without subsequent striking against object, initial encounter
CPT/HCPCS: 70450; 70486; 71046; 71100; 72125; 99284; 99285; A9270

== ENCOUNTER 2024-01-27 10:14 | Outpatient (CLI) | payer MEDICARE, SELFPAY ==
--- NOTE | ~2024-01-27 | US_ITS ---
EXAMINATION: US thyroid DATE: 01/27/2024 10:37 INDICATION: Nontoxic single thyroid nodule TECHNIQUE: Multiple ultrasound images of the thyroid were obtained. COMPARISON: None. FINDINGS: The right thyroid lobe measures 4.2 x 1.6 x 1.3 cm. The left thyroid lobe measures 4.5 x 1.4 x 1.6 c m. 1.5 cm wider than tall solid isoechoic to slightly hypoechoic nodule in the left thyroid lobes wi th lobular margins and without echogenic foci (TI-RADS 4, moderately suspicious , FNA if >=1.5 cm, an nual followup is >=1 cm). There are a few additional subcentimeter nodules scattered throughout the r emainder of the thyroid and Just measuring 9 mm in the right thyroid lobe with similar imaging features. If you've the subcentime ter nodules appear more cystic. IMPRESSION: 1. Multinodular goiter. Recommend ultrasound-guided biopsy of the largest 1.5 cm TI RADS 4 left thyro id nodule. Reviewed, dictated and finalized at location A. IMPRESSION: 1. Multinodular goiter. Recommend ultrasound-guided biopsy of the largest 1.5 c m TI RADS 4 left thyroid nodule.
--- NOTE | ~2024-01-27 | XR_ITS ---
Clinical Indication: Rib fracture PA and lateral views of the chest: Comparison: 12/30/2023 Findings: The lungs are clear, without evidence of focal consolidation or pleural effusion. Cardiome diastinal silhouette is within normal limits. Bones and soft tissues are unremarkable. Impression: Normal chest. Reviewed, dictated and finalized at [facility]. Impression: Normal chest.
== END 2024-01-27 10:15 ==
LOC: GOSHIMG 10:16
PROVIDERS: PCP Nurse Practitioner; Visit Provider Family Medicine
DX: E04.2 Nontoxic multinodular goiter (principal)
CPT/HCPCS: 71046; 76536

== ENCOUNTER 2024-02-23 12:02 | Outpatient (CLI) | payer MEDICARE, SELFPAY ==
--- NOTE | ~2024-02-23 | US_ITS ---
EXAMINATION: US FNA w image guidance DATE: 02/23/2024 13:41 INDICATION: Nontoxic single left thyroid nodule TECHNIQUE: A time-out was performed to verify the patient's name, date of , and procedure to be performed . The procedure and its benefits and risks were discussed with the patient. Risks specifically discus sed included bleeding and infection. The patient understood the risks and agreed to proceed. The neck was prepped and draped in the usual sterile manner. 3 mL 1% lidocaine was used for local anesthesia . 6 passes were made with a 25G needle into the lesion. Appropriate needle location was documented with continuous sonographic guidance. A sterile bandage was applied. There were no immediate compli cations. FINDINGS: Grayscale ultrasound images demonstrate biopsy needles advanced into the 1.6 cm TI RADS 4 left thyroi d nodule of concern. IMPRESSION: 1. Successful ultrasound-guided fine needle aspiration of a 1.6 cm TI RADS 4 left thyroid nodule. Reviewed, dictated and finalized at location A. IMPRESSION: 1. Successful ultrasound-guided fine needle aspiration of a 1.6 cm TI RADS 4 l eft thyroid nodule.
== END 2024-02-23 12:03 | disposition home or self-care (01) ==
PROVIDERS: PCP Family Medicine; Visit Provider Nurse Practitioner
DX: E04.1 Nontoxic single thyroid nodule (principal)
CPT/HCPCS: 10005; 88172; 88173; 88305

== ENCOUNTER 2024-04-07 13:37 | Emergency (ER) | payer MEDICARE, SELFPAY ==
--- NOTE | 2024-04-07 13:42 | ED.SKABFB ---
HPI - Skin/Abscess/Foreign Bdy General Chief complaint: Skin/Abscess/Foreign Body Stated complaint: INSECT BITES Time Seen by Provider: 04/07/24 13:50 Source: patient and RN notes reviewed Mode of arrival: ambulatory Limitations: no limitations History of Present Illness HPI narrative: 78-year-old female presents with concern for insect bites to her left arm and to her right-sided neck. Reports she woke up yesterday morning with speed. She should. Reports they are itchy, burn and are tender. She denies drainage from the area. Denies swollen lips, swollen tongue, trouble breathing MD complaint: insect bite/sting Related Data Home Medications Medication Instructions Recorded Confirmed letrozole 2.5 mg tablet 2.5 mg PO DAILY 05/19/20 04/07/24 denosumab 60 mg/mL subcutaneous 60 mg subcut [id number] 07/18/22 04/07/24 syringe (Prolia) ferrous sulfate 325 mg (65 mg 325 mg PO DAILY 07/10/23 04/07/24 iron) tablet calcium carbonate (Calcium 500) 500 mg PO DAILY 01/06/24 04/07/24 hydrochlorothiazide 25 mg tablet 25 mg PO DAILY 02/25/24 04/07/24 Allergies Allergy/AdvReac Type Severity Reaction Status Date / Time nitrofurantoin AdvReac Intermediate Diarrhea Verified 04/07/24 13:51 Sulfa (Sulfonamide AdvReac Unknown Headache Verified 04/07/24 13:51 Antibiotics) Review of Systems Review of Systems: CONSTITUTIONAL: Denies malaise, chills, sweats, or fever. EYES: Denies redness, or discharge. ENT: Denies rhinorrhea, congestion, swollen lips, swollen tongue CARDIOVASCULAR: Denies chest pain, palpitations, or edema. RESPIRATORY: Denies cough or dyspnea. GASTROINTESTINAL: Denies abdominal pain, nausea, vomiting SKIN: Reports bite to the left arm and right neck MUSCULOSKELETAL: Denies joint pain or myalgia. NEUROLOGIC: Denies headache. All systems reviewed & are unremarkable except as noted in HPI and below PMFSH Past Medical History Medical History Arthritis Carcinoma of left breast Depression Diverticulitis Hammer toe (~08/2016) Hepatitis C antibody test negative (07/18/21) Hypertension [facility] use of drug Microscopic hematuria Osteopenia Surgical History Surgical History History of cataract extraction (~2015) History of lumpectomy of left breast (~2019) History of tonsillectomy (~1965) Family History Family History Mother Diabetes mellitus Family history of osteoporosis Family history of glaucoma Hypertension Cerebrovascular accident Carcinoma of colon Family history of lung disease Family history of hearing loss Father Family history of glaucoma Hypertension Family history of chronic obstructive pulmonary disease Family history of congestive heart failure Sibling Family history of malignant melanoma Social History Social History Social History: Caffeine-coffee Smoking packs per day: 1 Smoking cigarettes per day: 20.0 Years smoked: 10 Smoking pack-years: 10.00 Smoking status: Former smoker Tobacco type: cigarettes Smoking end date: 11/10/80 Alcohol intake: current Alcohol use details: very occasional Substance use: never Substance use type: does not use Lack of Transportation: No Lack of Food: Sometimes True Current Housing: I Have Housing Concerned About Future Housing: No Difficulty Paying Gas/Electric Bills: No Difficulty Paying for Meds: No Currently Unemployed: No Education: Master's Degree or Higher Difficulty w/ Childcare or Family Care: No Living arrangements: alone Spiritual care concerns: No Comments At time of signature, agree with nursing past medical, surgical, social and family history. There is no relevant family history pertinent to the presenting complaint Exam Narrative: GENERAL: Well-
[2024-04-07 13:44] VITALS: BP 124/86; PULSE 75; RESP 16; TEMP 36.6; O2SAT 99
== END 2024-04-07 14:05 | disposition home or self-care (01) ==
PROVIDERS: Emergency Provider Nurse Practitioner; PCP Family Medicine
DX: S10.96XA Insect bite of unspecified part of neck, initial encounter (principal); S40.862A Insect bite (nonvenomous) of left upper arm, initial encounter; W57.XXXA Bitten or stung by nonvenomous insect and other nonvenomous arthropods, initial encounter; M19.90 Unspecified osteoarthritis, unspecified site; I10 Essential (primary) hypertension; M85.80 Other specified disorders of bone density and structure, unspecified site; Z85.3 Personal history of malignant neoplasm of breast
CPT/HCPCS: 99213; G0463

== ENCOUNTER 2024-05-23 10:14 | Emergency (ER) | payer MEDICARE, SELFPAY ==
--- NOTE | 2024-05-23 10:28 | ED.ABDPAIN ---
HPI - Abdominal Pain General Chief Complaint: Abdominal Pain Stated Complaint: L SIDE PAIN/CONSTIPATION/? DIVERTICULITIS Source: patient, RN notes reviewed and old records reviewed Mode of arrival: ambulatory Limitations: no limitations History of Present Illness HPI narrative: patient with history of diverticulitis, has appointment with [facility] in July, presents today with complaints of left lower quadrant pain. She reports that she has had diverticulitis in the past, reports that this pain is the same. It has been present for approximately 3-4 days. She does reports associated diarrhea. She has also been taking fiber supplements and stool softeners. She denies any nausea or vomiting. She is afebrile. She does report that she ate this morning without difficulty. She voices no other concerns or complaints at this time. Denies past abdominal surgeries Related Data Home Medications Medication Instructions Recorded Confirmed letrozole 2.5 mg tablet 2.5 mg PO DAILY 05/19/20 04/07/24 denosumab 60 mg/mL subcutaneous 60 mg subcut [id number] 07/18/22 04/07/24 syringe (Prolia) hydrochlorothiazide 25 mg tablet 25 mg PO DAILY 02/25/24 04/07/24 calcium phos,tribasic 260 mg-D3 25 tablet PO 05/23/24 mcg-herbal 50 mg chewable tablet (Alive Calcium-Vitamin D3) vitamins A,C,F-chew-keegru 2,148 tablet 05/23/24 mcg-113 mg-45 mg-17.4 mg tablet (PreserVision AREDS) Allergies Allergy/AdvReac Type Severity Reaction Status Date / Time nitrofurantoin AdvReac Intermediate Diarrhea Verified 05/23/24 10:33 Sulfa (Sulfonamide AdvReac Unknown Headache Verified 05/23/24 10:33 Antibiotics) Review of Systems Review of Systems: All systems reviewed & are unremarkable except as noted in HPI and below Constitutional: Constitutional: Reports no additional constitutional complaints ENT: Reports system reviewed and no additional complaints, except as documented Cardiovascular: Cardiovascular: Reports no additional cardiovascular complaints Respiratory: Respiratory: Reports no additional respiratory complaints Gastrointestinal: Gastrointestinal: Reports no additional gastrointestinal complaints, Reports abdominal pain and Reports diarrhea PMFSH Past Medical History Medical History Arthritis Carcinoma of left breast Depression Diverticulitis Hammer toe (~08/2016) Hepatitis C antibody test negative (07/18/21) Hypertension [facility] use of drug Microscopic hematuria Osteopenia Surgical History Surgical History History of cataract extraction (~2015) History of lumpectomy of left breast (~2019) History of tonsillectomy (~1965) Family History Family History Mother Diabetes mellitus Family history of osteoporosis Family history of glaucoma Hypertension Cerebrovascular accident Carcinoma of colon Family history of lung disease Family history of hearing loss Father Family history of glaucoma Hypertension Family history of chronic obstructive pulmonary disease Family history of congestive heart failure Sibling Family history of malignant melanoma Social History Social History Social History: Caffeine-coffee Smoking packs per day: 1 Smoking cigarettes per day: 20.0 Years smoked: 10 Smoking pack-years: 10.00 Smoking status: Former smoker Tobacco type: cigarettes Smoking end date: 11/10/80 Alcohol intake: current Alcohol use details: very occasional Substance use: never Substance use type: does not use Lack of Transportation: No Lack of Food: Sometimes True Current Housing: I Have Housing Concerned About Future Housing: No Difficulty Paying Gas/Electric Bills: No Difficulty Paying for Meds: No Currently Unemployed: No Educatio
[2024-05-23 10:30] VITALS: BP 118/80; PULSE 83; RESP 16; TEMP 37.5; O2SAT 100
== END 2024-05-23 10:48 | disposition home or self-care (01) ==
PROVIDERS: Emergency Provider Nurse Practitioner Family; PCP Nurse Practitioner
DX: K57.92 Diverticulitis of intestine, part unspecified, without perforation or abscess without bleeding (principal); Z87.891 Personal history of nicotine dependence; M19.90 Unspecified osteoarthritis, unspecified site; I10 Essential (primary) hypertension; M85.80 Other specified disorders of bone density and structure, unspecified site; Z85.3 Personal history of malignant neoplasm of breast; Z90.12 Acquired absence of left breast and nipple
CPT/HCPCS: 99213; G0463

== ENCOUNTER 2024-06-02 10:53 | Outpatient (CLI) | payer MEDICARE, SELFPAY ==
--- NOTE | ~2024-06-02 | CT_ITS ---
EXAMINATION: CT abdomen pelvis wo con DATE: 06/02/2024 11:12 INDICATION: Left lower quadrant pain TECHNIQUE: Computed tomography (CT) of the abdomen and pelvis was performed without intravenous contr ast. Automated exposure control and iterative reconstruction technique were employed. The dose-length product was 708.54 mGy-cm. COMPARISON: Ultrasound right upper quadrant 09/20/2021, bone scan 09/20/2021, x-ray abdomen . FINDINGS: Lower thorax: Unremarkable Liver: 3.1 cm indeterminate density right lobe lesion. Biliary/Gallbladder: Gallbladder is normal. No bile duct dilation. Pancreas: Fatty infiltration. Spleen: Normal. Adrenals:No mass. Kidneys: No suspicious mass, obstructing stone, or hydronephrosis. GI tract: No small or large bowel dilation. Normal appendix. Mesentery/Peritoneum: No ascites, mass, or free air. 8mm partially calcified splenic artery aneurysm. Retroperitoneum: No mass. Pelvis: Pelvic organs are within normal limits. Soft Tissues: Small uncomplicated appearing helical and bilateral inguinal hernias. Bones: No acute osseous finding. Stable focal sclerotic lesion in the left superior pubic ramus, neg ative prior bone scan, likely bone island. Grade 1 anterolisthesis at L4-5. IMPRESSION: No acute abdominopelvic process detected. 2.1 cm indeterminate right liver lobe lesion, recommend MRI of the liver without and with contrast fo r further evaluation. 8mm partially calcified splenic artery aneurysm, consider CT abdomen and pelvis follow-up in 1 year. Reviewed, dictated and finalized at location K. IMPRESSION: No acute abdominopelvic process detected. 2.1 cm indeterminate right liver lobe lesion, recommend MRI of the liver withou t and with contrast for further evaluation. 8mm partially calcified splenic artery aneurysm, consider CT abdomen and pelvis follow-up in 1 year.
== END 2024-06-02 10:54 ==
LOC: GOSHIMG 10:53
PROVIDERS: PCP Nurse Practitioner; Visit Provider Nurse Practitioner
DX: R91.1 Solitary pulmonary nodule (principal); K76.89 Other specified diseases of liver
CPT/HCPCS: 74176

== ENCOUNTER 2024-06-14 10:13 | Outpatient (CLI) | payer MEDICARE, SELFPAY ==
--- NOTE | ~2024-06-14 | MR_ITS ---
EXAMINATION: MR abdomen wo/w con DATE: 06/14/2024 11:28 INDICATION: Liver disease, unspecified. Liver mass. TECHNIQUE: Magnetic resonance imaging (MRI) of the abdomen was performed without and with 13 mL Multi Denice intravenous contrast. COMPARISON: CT abdomen and pelvis 06/02/2024 FINDINGS: There is a 2.6 cm mass in right hepatic lobe with interrupted peripheral puddling of contrast, consis tent with a hemangioma. The gallbladder, spleen, pancreas, adrenal glands, and kidneys are normal. Th ere are no dilated loops of bowel. There is diverticulosis of the colon without evidence of diverticu litis. There are no pathologically enlarged lymph nodes. There is no free intraperitoneal fluid. IMPRESSION: 1. 2.6 cm hemangioma in the liver. Reviewed, dictated and finalized at location A.
== END 2024-06-14 10:14 | disposition home or self-care (01) ==
LOC: ANHIMG 10:16
PROVIDERS: PCP Family Medicine; Visit Provider Nurse Practitioner
DX: D18.09 Hemangioma of other sites (principal)
CPT/HCPCS: 74183; A9577

== ENCOUNTER 2024-06-20 11:26 | Emergency (ER) | payer MEDICARE, SELFPAY ==
--- NOTE | 2024-06-20 11:33 | ED.FEMALEGU ---
HPI - Female Genitourinary General Chief complaint: Urogenital-Female Stated complaint: UTI Time Seen by Provider: 06/20/24 11:39 Source: patient, RN notes reviewed and old records reviewed Mode of arrival: ambulatory Limitations: no limitations History of Present Illness HPI Narrative: 79-year-old female presents to the [facility] with concerns for a UTI. States yesterday started with urinary discomfort, burning. Denies fevers, nausea, vomiting. No back or abdominal pain. Patient reports that she tried drinking plenty of water to try to flush everything out. Symptoms slightly improved but still having burning with urination Did take Tylenol this morning which also helped her symptoms Related Data Home Medications Medication Instructions Recorded Confirmed letrozole 2.5 mg tablet 2.5 mg PO DAILY 05/19/20 06/20/24 denosumab 60 mg/mL subcutaneous 60 mg subcut [id number] 07/18/22 06/20/24 syringe (Prolia) hydrochlorothiazide 25 mg tablet 25 mg PO DAILY 02/25/24 06/20/24 calcium phos,tribasic 260 mg-D3 25 1 tablet PO DAILY 05/23/24 06/20/24 mcg-herbal 50 mg chewable tablet (Alive Calcium-Vitamin D3) vitamins A,C,D-amni-jsjimq 2,148 1 tablet PO DAILY 05/23/24 06/20/24 mcg-113 mg-45 mg-17.4 mg tablet (PreserVision AREDS) Allergies Allergy/AdvReac Type Severity Reaction Status Date / Time nitrofurantoin AdvReac Intermediate Diarrhea Verified 06/20/24 11:40 Sulfa (Sulfonamide AdvReac Unknown Headache Verified 06/20/24 11:40 Antibiotics) Review of Systems Review of Systems: All systems reviewed & are unremarkable except as noted in HPI and below Constitutional: Constitutional: Reports no additional constitutional complaints Eyes: Eyes: Reports no additional eye complaints ENT: Reports system reviewed and no additional complaints, except as documented Cardiovascular: Cardiovascular: Reports no additional cardiovascular complaints, Denies chest pain and Denies dyspnea Respiratory: Respiratory: Reports no additional respiratory complaints, Denies chest congestion, Denies cough and Denies dyspnea Gastrointestinal: Gastrointestinal: Reports no additional gastrointestinal complaints, Denies abdominal pain, Denies nausea and Denies vomiting Genitourinary: Genitourinary: Reports as per HPI and Reports dysuria Musculoskeletal: Musculoskeletal: Reports no additional musculoskeletal complaints Integumentary/Breasts: Skin/Breast: Reports system reviewed and no additional complaints, except as docu Neurologic: Reports system reviewed and no additional complaints, except as documented Psychiatric: Psychiatric: Reports no additional psychiatric complaints [facility] Past Medical History Medical History Arthritis Carcinoma of left breast Depression Diverticulitis Hammer toe (~08/2016) Hepatitis C antibody test negative (07/18/21) 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 Microscopic hematuria Osteopenia Surgical History Surgical History History of cataract extraction (~2015) History of lumpectomy of left breast (~2019) History of tonsillectomy (~1965) Family History Family History Mother Diabetes mellitus Family history of osteoporosis Family history of glaucoma Hypertension Cerebrovascular accident Carcinoma of colon Family history of lung disease Family history of hearing loss Father Family history of glaucoma Hypertension Family history of chronic obstructive pulmonary disease Family history of congestive heart failure Sibling Family history of malignant melanoma Social History Social History Social History: Caffeine-coffee Smoking packs per day: 1 Smoking cigarettes per day: 20.0 Years smoked: 10 Smoking pack-years: 10.00 Smoking status: Former smoker Tobacco t
[2024-06-20 11:44] VITALS: BP 133/90; PULSE 67; RESP 16; TEMP 36.8; O2SAT 100
[2024-06-20 11:56] LABS: EDUAAPPEAR Clear; EDUABILI Negative; EDUABLOOD 2+; EDUACOLOR1 Light/Pale; EDUAGLUCOSE Negative; EDUAKETONE Negative; EDUALEUKO 3+; EDUANITRATE Negative; EDUAPROTEIN Negative; EDUASPGRAVITY 1.015; EDUAUROBILI 0.2
== END 2024-06-20 12:07 | disposition home or self-care (01) ==
PROVIDERS: Emergency Provider Nurse Practitioner; PCP Family Medicine
DX: N30.01 Acute cystitis with hematuria (principal); Z87.891 Personal history of nicotine dependence; M19.90 Unspecified osteoarthritis, unspecified site; I10 Essential (primary) hypertension; M85.80 Other specified disorders of bone density and structure, unspecified site; Z85.3 Personal history of malignant neoplasm of breast
CPT/HCPCS: 81003; 87086; 87088; 99213; G0463

== ENCOUNTER 2024-08-27 07:12 | Outpatient (CLI) | payer MEDICARE, SELFPAY ==
--- NOTE | ~2024-08-27 | DEXA_ITS ---
Bone Density Report Name: CAROLINA CONRAD Age: 79 Sex: Female Ethnicity: White Date of : 1945 Indication: osteopenia; parental hip fracture; height loss; cancer; Referring Provider: BARRON CASTRO Study: Bone densitometry was performed. Exam Date: August 27, 2024 Accession number: [id number] Bone Density: Region BMD T-score Z-score Classification AP Spine(L1-L4) 0.932 -1.0 1.5 Normal Femoral Neck (Left) 0.646 -1.8 0.4 Osteopenia Total Hip (Left) 0.839 -0.8 1.1 Normal Femoral Neck (Right) 0.611 -2.1 0.1 Osteopenia Total Hip (Right) 0.849 -0.8 1.2 Normal Total Hip Mean 0.844 -0.8 1.2 Normal World Health Organization criteria for BMD impression classify patients as: Normal (T-score at or above -1.0), Osteopenia (T-score between -1.0 and -2.5), or Osteoporosis (T-score at or below -2.5). 10-year Fracture Risk(1): Major Osteoporotic Fracture 29% Hip Fracture 19% Reported Risk Factors: [place] (), Neck BMD=0.611, BMI=26.9, parental fracture (1) FRAX(R) Version 3.08. Fracture probability calculated for an untreated patient. Fracture probability may be lower if the patient has received treatment. Previous Exams: Region Exam Age BMD T-score BMD Change BMD Change Date g/cm2 vs Baseline vs Previous AP Spine (L1-L4) 08/27/2024 79 0.932 -1.0 0.031 (3.4%)# 0.031 (3.4%)# 12/14/2019 74 0.901 -1.3 Total Hip(Right) 08/27/2024 79 0.849 -0.8 0.093 (12.3%)# 0.173 (25.5%)* 04/05/2022 76 0.677 -2.2 -0.080 (-10.5% -0.080 (-10.5% 12/14/2019 74 0.756 -1.5 *Denotes significance at 95% confidence level, LSC for AP Spine = 0.022 g/cm2, LSC for Total Hip = 0.027 g/cm2 # Denotes dissimilar scan types or analysis methods Clinical Information Provided by Patient: Parent has had a hip fracture Has used the following medications: Vitamin D, Calcium Has the following medical conditions: Cancer Patient maximum height was 64 Menopause Age: 46 No regular weight bearing exercise Does not regularly consume dairy products Drinks caffeinated beverages Onset of menses at age 13 Number of children 1 Impression: The patient has low bone mass, based on the Right Femoral Neck T-score. The patient has an estimated ten-year risk of hip fracture of 19% and an estimated ten-year risk of major fracture of 29%, based on the WHO FRAX algorithm. The patient has risk factors, including: parental hip fracture. No significant bone loss was observed. Discussion:
== END 2024-08-27 07:13 | disposition home or self-care (01) ==
LOC: ANHIMG 07:13
PROVIDERS: PCP Internal Medicine Medical Oncology; Visit Provider Nurse Practitioner
DX: M85.89 Other specified disorders of bone density and structure, multiple sites (principal)
CPT/HCPCS: 77080

== ENCOUNTER 2024-11-26 08:31 | Outpatient (CLI) | payer MEDICARE, SELFPAY ==
[2024-11-26 17:48] LABS: Hematocrit 39.1 % (37.0-47.0); Hemoglobin 12.1 g/dL (12.0-15.0); Mean Corpuscular HGB Conc 30.9 g/dl (32-36); Mean Corpuscular Hemoglobin 30.3 pg (26-34); Mean Platelet Volume 9.4 fl (7.4-10.4); Platelet Count Result 318 k/mm3 (150-375); Red Blood Count 3.99 M/mm3 (4.2-5.4); Red Cell Distribution Width 15.3 % (11.5-14.5); White Blood Count 7.8 K/mm3 (4.5-10.0)
[2024-11-26 18:06] LABS: Add Urine Microscopic? YES; Appearance Urine Clear (Clear); Bacteria Urine 4+ /hpf; Bilirubin Urine Negative (Negative); Blood Urine Negative (Negative); Color Urine Yellow (Yellow); Glucose Urine UA Negative (Negative); Ketones Urine Negative (Negative); Leukocyte Esterase Ur 1+ LEU/UL (Negative); Nitrate Urine Positive (Negative); Non Pathogenic Casts 0-2; Protein Urine Negative (Negative); RBC Urine 0-2 /hpf (0-2); Specific Grav Ur 1.012 (1.001-1.035); Squamous Epithelial Cell Urine None Seen /hpf (Few); Urobilinogen Urine 0.2 mg/dL (<2.0)
[2024-11-26 18:13] LABS: Vitamin D 25 Hydroxy 49.8 ng/mL
[2024-11-26 18:37] LABS: LDL Cholesterol Direct 92 mg/dL
[2024-11-26 18:39] LABS: Alanine Aminotransferase 32 U/L (6-35); Alkaline Phosphatase 112 U/L (38-126); Anion Gap 7 mmol/L (4-12); Aspartate Amino Transferase 47 U/L (14-36); Bilirubin,Total 0.4 mg/dL (0.2-1.3); Blood Urea Nitrogen 31 mg/dL (7-17); Calcium 8.8 mg/dL (8.4-10.2); Carbon Dioxide 29 mmol/L (22-30); Chloride 99 mmol/L (98-107); Cholesterol 171 mg/dL (0-200); Estimated Glomerular Filt Rate > 60; Glucose 49 mg/dL (65-110); HDL Direct 50 mg/dL; Potassium 4.8 mmol/L (3.4-5.0); Sodium 135 mmol/L (137-145); Triglycerides 65 mg/dL (<150)
--- OUTSIDE RECORDS SUMMARY | 2024-12-02 05:37 | XMS_ITS | Encounter Summary ---
Author Organization [facility] Healthcare Address [address] [place] [address] Care Team Providers Care Office Support Assistant Name Role Phone Delmy Carrero DO Primary Care Provider [phone] Amee Hermosillo MD PhD Unavailable [phone] Keren Watts MD Unavailable Dima Grant DO Unavailable Chloe Sebastian SAND TEMPERER Primary Care Provider + Delmy Carrero DO Primary Care Provider [phone] Sai Sesay MD Unavailable [phone] Encounter Details Date Type Department Care Team (Late st Contact Info) Description 03/30/2020 Telephone [facility] Radiation Oncology [address] [facility] [place] [address] Gina Evans RN Social History Tobacco Use Types Packs/Day Years Used Date Smoking Tobacco: Former Cigarettes 1 10 Smokeless Tobacco: Never Alcohol Use Standard Drinks/Week Comments Yes 6 (1 standard drink = 0.6 oz pur e alcohol) AUDIT-C Answer Date Recorded Q1: How often do you have a drink containing alc ohol? 2-4 times a month 02/04/2020 Q2: How many drinks containi ng alcohol do you have on a typical day when you are drinking? 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 Not on file Not on file Not on file documented as of this encounter Plan of Treatment Not on file documented as of this encounter Visit Diagnoses Not on filedocumented in this encounter Care Teams Office Support Assistant Relationship Specialty Start Date End Date Delmy Carrero DO PCP - General Family Medicine 01/14/20 11/08/20 Chloe Sebastian NP [address] [address] PCP - General 11/09/20 01/10/21 Delmy Carrero DO PCP - General Family Medicine 01/11/21 Aft, Amee Bustos MD PhD [address] [place] [address] Surgeon Surgical Oncology 03/29/20 Keren Watts MD [address] [address] Radiation Oncologist Radiation Oncology 03/29/20 Dima Grant DO [address] [address] Medical Oncologist/Rehab Aid Hematology and Oncology 03/29/20 Sai Sesay MD [address] [address] [address] [address] Consulting Physician Endocrinology Diabetes & Metabolism 05/04/24 documented as of this encounter
--- OUTSIDE RECORDS SUMMARY | 2024-12-02 05:37 | XMS_ITS | Clinical Summary ---
Author Organization [facility] Address [address] [place] [address] Care Team Providers Care Fund Accounting Manager Name Role Phone NormatAmee MD PhD Unavailable [phone] Keren Watts MD Unavailable Dima Grant DO Unavailable Delmy Carrero DO Primary Care Provider [phone] Sai Sesay MD Unavailable [phone] Allergies Active Allergy Reactions Criticality Noted Date Comments Nitrofurantoin Monohyd/M-Cryst Diarrhea,Fatigue Low 06/20/2023 Sulfa (Sulfonamide Antibiotics) Headache,Nausea And Vomiting Low 06/10/2017 Medications fluticasone propionate (FLONASE) 50 mcg/actuation nasal sprayIndications :Allergic Rhinitis Administer 2 sprays into affected nostril(s) as needed for rhinitis or allergies 8 Active calcium carbonate-vitami n D3 500 mg(1,250mg) -400 unit chewable tabletIndication s:Hypocalcemia Prevention,Preve ntion of Vitamin D Deficiency,has osteoprnia Take 1 tablet by mouth 2 (two) times a day Active hydrocortisone 2.5 % creamIndications :hemorrhoids Insert 1 Application into the rectum 2 (two) times a day as needed for irritation 9 Active lisinopriL (PRINIVIL,ZESTRI L) 20 mg tabletIndication s:hypertension Take 1 tablet (20 mg total) by mouth 2 (two) times a day Active vit C,P-Oo-uqihf-lut ein-zeaxan (PreserVision AREDS-2) 250-90-40-1 mg capsuleIndicatio ns:supplement Take 1 capsule by mouth 2 (two) times a day 2 Active sertraline (ZOLOFT) 25 mg tabletIndication s:Generalized Anxiety Disorder Take 1 tablet (25 mg total) by mouth every morning 4 Active triamcinolone (KENALOG) 0.1 % creamIndications :bug bites Apply topically as needed 4 Active acetaminophen (TYLENOL) 500 mg tablet Take 2 tablets (1,000 mg total) by mouth every 6 (six) hours as needed for pain 4 Active ferrous sulfate 325 mg (65 mg of elemental iron) tablet TAKE 1 TABLET BY MOUTH EVERY DAY WITH BREAKFAST 90 tablet 1 4 Active ibuprofen 200 mg tab/cap Take 2 tablet/capsule (400 mg total) by mouth every 6 (six) hours as needed for pain Active levothyroxine (SYNTHROID) 50 mcg tablet Take 1 tablet (50 mcg total) by mouth daily 30 tablet 11 4 07/21/20 25 Active acetaminophen (TYLENOL) 500 mg tablet Take 2 tablets (1,000 mg total) by mouth every 6 (six) hours as needed for pain 60 tablet 4 Active ibuprofen (ADVIL,MOTRIN) 600 mg tablet Take 1 tablet (600 mg total) by mouth every 6 (six) hours as needed for pain 30 tablet 4 Active docusate sodium (COLACE) 100 mg capsuleIndicatio ns:constipation Take 1 capsule (100 mg total) by mouth 2 (two) times a day 60 capsule 4 Active apixaban (ELIQUIS) 5 mg tablet Take 0.5 tablets (2.5 mg total) by mouth 2 (two) times a day for 28 days 28 tablet 4 Active Additional Information Patient not taking.Reported on 09/22/2024 letrozole (FEMARA) 2.5 mg tabletIndication s:Malignant neoplasm of lower-outer quadrant of left breast of female, estrogen receptor positive (HCC),Malignant neoplasm of lower-outer quadrant of left female breast, unspecified estrogen receptor status (HCC) TAKE 1 TABLET BY MOUTH EVERY DAY 90 tablet 1 Active denosumab (PROLIA) 60 mg/mL syringe Inject under the skin once Active estrogens, conjugated, (PREMARIN) vaginal cream Apply nightly to vagina for 1 week, then Friday/ y/ Friday 42.5 g 11 4 09/22/20 25 Active Active Problems Problem Noted Date Diagnosed Date Post-surgical hypothyroidism 10/11/2024 Assessment & Plan (10/11/2024 1:29 PM GENERATION MECHANIC HELPER): Continue current levothyroxine dose. Will check thyroid function test and adjust levothyroxine dose accordingly. 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 Akhtar. PET showed no metastases. Low risk, no BAZZI given Follow up neck LIZETH Thyroid cancer 04/06/2024 Thyroid nodule 03/16/2024 Cystocele, midline 02/25/2024 Nasal obstruction 01/08/2024 Facial pain 01/08/2024 Closed fracture of nasal bones 01/06/2024 Fall, initial encounter 12/30/2023 Osteoporosis without current pathological fractu re 04/10/2022 Assessment & Plan (10/11/2024 1:34 PM GENERATION MECHANIC HELPER): On Prolia History of breast cancer 09/05/2021 Feeling of incomplete bladder emptying Assessment & Plan (01/13/2021 1:58 PM GENERATION MECHANIC HELPER): -PVR 30 PLAN: -Rock back and forth and squeeze pelvic muscles at end of voiding. Urge incontinence 01/13/2021 Assessment & Plan (01/13/2021 2:07 PM GENERATION MECHANIC HELPER): -Avoid caffeine and large amounts of fluid prior to going out to avoid the urge incontinence. -Void regularly and don't wait until your bladder is full. -Practice Kegel exercises. -Patient given handout on bladder irritants and Kegel's. -If symptoms continue, may consider pelvic floor therapy as patient would like to avoid medication at this time. Urinary frequency 01/13/2021 Assessment & Plan (01/13/2021 2:08 PM GENERATION MECHANIC HELPER): -Refer to handout on bladder irritants and try to avoid. 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, estrogen receptor positive 01/24/2020 Cancer Staging:Pathologic stage from 02/22/2020:Stage IA(pT1b, pN0(sn), cM0, G3, ER+, MT-, HER2-) - Signed by Keren Watts MD on 03/29/2020 Clinical stage from 03/17/2020:Stage IB(cT1b, cN0(sn), cM0, G3, ER+, MT-, HER2-) - Signed by Dima Grant DO on 03/19/2020 Encounters Date Type Department Care Team Description 10/26/2024 Telephone [facility] Advanced Medicine Radiation Oncology [address] [facility] [place] [address] Gena Villa NP 10/21/2024 1:00 PM GENERATION MECHANIC HELPER Therapy [facility] [address] [place] [address] Cecilia Morris DPT Cystocele with prolapse (Primary Dx) 10/21/2024 9:47 AM GENERATION MECHANIC HELPER - 10/21/2024 11:59 PM GENERATION MECHANIC HELPER Hospital Encounter [facility] - Breast Imaging [address] [place] [address] Floor 8 [place] [address] Breast pain Discharge Disposition: Discharge to home or self care 10/21/2024 9:47 AM GENERATION MECHANIC HELPER - 10/21/2024 11:59 PM GENERATION MECHANIC HELPER Hospital Encounter [facility] - Breast Imaging [facility] Floor 8 [place] [address] Breast pain Discharge Disposition: Discharge to home or self care 10/11/2024 1:45 PM GENERATION MECHANIC HELPER Lab [facility] - Lab Collection [address] [facility] Floor 5 [place] [address] Post-surgical hypothyroidism 10/11/2024 1:20 PM GENERATION MECHANIC HELPER Office Visit [facility] [address] [facility] Floor 1, [address] [place] [phone] Sai Sesay MD Papillary thyroid carcinoma (HCC) (Primary Dx); Osteoporosis without current pathological fracture, unspecified osteoporosis type; Post-surgical hypothyroidism; Full incontinence of feces 10/08/2024 10:12 AM GENERATION MECHANIC HELPER - 10/08/2024 11:59 PM GENERATION MECHANIC HELPER Hospital Encounter [facility] [address] [place] [address] Thyroid cancer (HCC) Discharge Disposition: Discharge to home or self care 10/05/2024 1:00 PM GENERATION MECHANIC HELPER Therapy [facility] [address] [facility] 1st Floor [address] [place] [phone] Cecilia Morris DPT Cystocele with prolapse (Primary Dx) 09/23/2024 1:00 PM GENERATION MECHANIC HELPER Therapy [facility] [address] [facility] 1st Floor [address] [place] [phone] Cecilia Morris DPT Cystocele with prolapse (Primary Dx) 09/22/2024 1:00 PM GENERATION MECHANIC HELPER Office [facility] [address] [facility] 7th Floor [address] [place] [phone] Mariaa Pham MD Cystocele with prolapse (Primary Dx) 09/22/2024 Telephone [facility] [address] [facility] [address] [place] [phone] Ritika España, ZEKE 09/22/2024 Telephone [facility] Advanced Medicine Radiation Oncology [facility] [place] [address] Gena Villa NP 09/21/2024 10:00 AM GENERATION MECHANIC HELPER Office Visit [facility] Advanced Medicine Radiation Oncology [address] [place] [address] Gena Villa NP Breast pain (Primary Dx); Malignant neoplasm of lower-outer quadrant of left breast of female, estrogen receptor positive (HCC) from Last 3 Months Immunizations Name Administration Dates Next Due INFLUENZA [id number] 07/29/2018 Influenza, Quadrivalent, Hig h Dose, Preservative Free, Intrr 08/25/2020 Influenza, Quadrivalent, Spl it, Pediatric, Preservative Free, Intramuscular 07/28/2019 Influenza, Trivalent, High D ose, Split, Preservative Free, Intramuscular 07/29/2018,09/04/2017 Influenza, Unspecified 07/13/2021 Moderna SARS-CoV-2 Monovalen t Vaccination (12+ YRS) 07/13/2021,01/24/2021,12/27/2020 Pneumococcal Conjugate PCV 13 09/04/2017 Pneumococcal Polysaccharide PPV23 10/07/2013 Tdap 03/07/2017 ZOSTER Recombinant 11/27/2019,08/05/2019, 019 Surgical History Surgery Date Site/Laterality Comments TONSILLECTOMY 11/10/1964 - 11/09/1965 Bilateral BUNIONECTOMY 11/10/2014 - 11/09/2015 Left BREAST BIOPSY 01/27/2020 Left CATARACT EXTRACTION 11/10/2015 - 11/09/2016 Bilateral BREAST LUMPECTOMY 02/22/2020 Left and breast biopsy COLONOSCOPY 03/10/2021 - 04/09/2021 NASAL FRACTURE SURGERY 01/08/2024 THYROIDECTOMY 03/10/2024 - 04/09/2024 ANTERIOR AND POSTERIOR VAGINAL REPAIR 07/22/2024 Cystocele repair, rectocele repair, anterior colporrhaphy, posterior colporrhaphy, colpoperineorrhaphy Medical History Medical History Date Comments Hypertension Headache Overweight Osteopenia Suspected deep vein thrombosis (DVT) 40 years ago in leg Breast cancer (HCC) Urinary tract infection Menopause ovarian failure HL (hearing loss) 2021 Dental disease 10/31 Fracture of nasal bones 12/30/23 Anemia 06/2023 History of chemotherapy 2019 History of radiation therapy 2019 Family History Medical History Relation Name Comments Cancer Brother Dima Fairchildobi Melanoma Brother Dima Pedroza Jasen Snoring Brother Dima Pedroza Jasen Heart disease Father Elmer Aggarwal Snoring Father Elmer Aggarwal Breast cancer Father's Sister Aunt - Jesica Gambinopie Cancer Father's Sister Aunt - Jesica Cheema Cancer Mother Mother - Marifer presley Colon cancer Mother Mother - Marifer Mcneill o Diabetes Mother Mother - Marifer Mcneill o Hearing loss Mother Mother - Marifer Mcneill o Stroke Mother Mother - Marifer Mcneill o Diabetes Paternal Grandfather None Hearing loss Paternal Grandfather None Ovarian cancer Paternal Grandmother Elayne Frost Bu rzio Anesthesia problems Neg Hx Malig Hyperthermia Neg Hx Pseudochol deficiency Neg Hx Relation Name Status Comments Brother Dima Aggarwal Alive Father Elmer Aggarwal Alive Father's Sister Aunt - Jesica Cheema Mother Mother - Marifer Aggarwal Paternal Grandfather None Paternal Grandmother Elayne Aggarwal Social History Tobacco Use Types Packs/Day Years Used Date Smoking Tobacco: Former Cigarettes 1 18 1 963 - 1980 Passive Smoke Exposure: Never Smokeless Tobacco: Never Tobacco Cessation:Counseling Given: Not Answered Alcohol Use Standard Drinks/Week Comments Yes 6 (1 standard drink = 0.6 oz pur e alcohol) [facility] Utilities Answer Date Recorded In the past 12 months has e [facility], gas, oil, or water in2apps threatened to shut off services in your home? No 12/31/2023 Humiliation, Afraid, Rape, and Kick questionnair e Answer Date Recorded Within the last year, have y ou been afraid of your partner or ex-partner? No 12/31/2023 Within the last year, have y ou been humiliated or emotionally abused in other ways by your partner or ex-partner? No Within the last year, have y ou been kicked, hit, slapped, or otherwise physically hurt by your partner or ex-partner? No 12/31/2023 Within the last year, have y ou been raped or forced to have any kind of sexual activity by your partner or ex-partner? No 12/31/2023 Social Connection and Isolat ion Panel [NHANES] Answer Date Recorded In a typical week, how many times do you talk on the phone with family, friends, or neighbors? More than three times a week 12/31/2023 How often do you get togethe r with friends or relatives? Twice a week 12/31/2023 How often do you attend chur or sabianist services? More than 4 times per year 12/31/2023 Do you belong to any clubs o r organizations such as evangelical groups, unions, fraternal or athletic groups, or school groups? Yes 12/31/2023 How often do you attend meet ings of the clubs or organizations you belong to? 1 to 4 times per year 12/31/2023 Are you , , di vorced, , never , or living with a partner? 12/31/2023 AUDIT-C Answer Date Recorded Q1: How often do you have a drink containing alc ohol? Monthly or less 07/22/2024 Q2: How many drinks containi ng alcohol do you have on a typical day when you are drinking? 1 or 2 07/22/2024 Q3: How often do you have si x or more drinks on one occasion? Never 07/22/2024 Overall Financial Resource Strain (CARDIA) Answe r Date Recorded How hard is it for you to pa y for the very basics like food, housing, medical care, and heating? Not hard at all 12/31/2023 [facility] - Occupational Stress Questionnaire Answer Date Recorded Do you feel stress - tense, restless, nervous, or anxious, or unable to sleep at night because your mind is troubled all the time - these days? To some extent 12/31/2023 Exercise Vital Sign Answer Date Recorde d On average, how many days pe r week do you engage in moderate to strenuous exercise (like a brisk walk)? 3 days 12/31/2023 On average, how many minutes do you engage in exercise at this level? 30 min 12/31/2023 Hunger Vital Sign Answer Date Recorded Within the past 12 months, y ou worried that your food would run out before you got the money to buy more. Never true 12/31/19 24 Within the past 12 months, t he food you bought just didn't last and you didn't have money to get more. Never true 12/31/2023 PRAPARE - Transportation Answer Date Re corded In the past 12 months, has l ack of transportation kept you from medical appointments or from getting medications? No 12/12 In the past 12 months, has l ack of transportation kept you from meetings, work, or from getting things needed for daily living? No 12/31/2023 Housing Stability Vital Sign Answer Baryden e Recorded In the last 12 months, was t here a time when you were not able to pay the mortgage or rent on time? No 12/31/2023 Number of Places Lived in the Last Year Not on f ile 12/31/2023 Unstable Housing in the Last Year Not on file 12/31/2023 Personal Safety Answer Date Recorded Have you ever been in or are you currently in a harmful physical or emotional relationship or is someone making you feel afraid or unsafe? 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 Not on file Not on file Not on file Obstetrics History Para Term AB IAB SAB Ectopic Multiple Livin g Live Births 1 1 1 1 1 Date Outcome GA Total Labor Labor/2nd/3rd Weight Sex Type Anes PTL Merna A1 A5 Name Clin 1981 Term F Vag-S pont Living Last Filed Vital Signs Vital Sign Reading Time Taken Comments Blood Pressure 165/89 10/11/2024 12:56 PM GENERATION MECHANIC HELPER Pulse 85 10/11/2024 12:56 PM GENERATION MECHANIC HELPER Temperature 36.4 ??C (97.6 ??F) 10/11/2024 12:[address] Respiratory Rate 18 10/11/2024 12:56 PM GENERATION MECHANIC HELPER Oxygen Saturation 98% 08/18/2024 2:09 PM CDT Inhaled Oxygen Concentration - - Weight 71.5 kg (157 lb 9.6 oz) 10/11/2024 12:56 PM GENERATION MECHANIC HELPER Height 160 cm (5' 3 ) 10/11/2024 12:56 PM GENERATION MECHANIC HELPER Body Mass Index 27.92 10/11/2024 12:56 PM GENERATION MECHANIC HELPER Plan of Treatment Health Maintenance Due Date Last Done Comments Depression Screening 1945 Hepatitis C Screening 1945 Hepatitis B Screening 1964 Well Visit 65+ 2011 Covid-19 Vaccine (2023-2 5 season) 2024 07/13/2021, 01/24/2021, 12/27/2020 Influenza Vaccine (#1) 2024 , 08/25/2020, 07/28/2019, Additional history exists Fall Risk Assessment 07/22/2025 07/22/2024 Osteoporosis Screening-Bone Density Scan 08/27/2026 08/27/2024, 06/07/2016, 06/07/2016 DTaP/Tdap/Td Vaccine (2 - Td or Tdap) 03/07/2027 03/07/2017 Pneumococcal vaccine 65+ Completed 09/04/2017, 09/11 Zoster Vaccine Completed 11/27/2019, 07/12, 08/02/2019 Breast Cancer Screening-Mammogram Discontinued 03/12/2024, 03/10/2023, 03/04/2022, Additional history exists Procedures Procedure Name Priority Date/Time Associated Diagnosis Comments US BREAST RIGHT LIMITED Schedule Routine, Read Routine (OP Routine) 10/21/2024 10:45 AM GENERATION MECHANIC HELPER Breast pain DIAGNOSTIC MAMMOGRAM RIGHT W DR Schedule Routine, Read Routine (OP Routine) 10/21/2024 10:27 AM GENERATION MECHANIC HELPER Breast pain EGFR Routine 10/11/2024 1:55 PM GENERATION MECHANIC HELPER Post-surgical hypothyroidism TSH Routine 10/11/2024 1:55 PM GENERATION MECHANIC HELPER Post-surgical hypothyroidism T4, FREE Routine 10/11/2024 1:55 PM GENERATION MECHANIC HELPER Post-surgical hypothyroidism RENAL FUNCTION PANEL Routine 10/11/2024 1:55 PM GENERATION MECHANIC HELPER Post-surgical hypothyroidism US SOFT TISSUE HEAD NECK Schedule Routine, Read Routine (OP Routine) 10/08/2024 11:11 AM GENERATION MECHANIC HELPER Thyroid cancer (HCC) DEXA AXIAL SKELETON BONE DENSITY 1 OR MORE SITES Schedule Routine, Read Routine (OP Routine) 08/27/2024 10:19 AM CDT SCREENING MAMMOGRAM BILATERAL W RD Schedule Routine, Read Routine (OP Routine) 03/12/2024 12:22 PM CDT Encounter for screening mammogram for malignant neoplasm of breast from Last 3 Months or Most Recently Relevant to Health Maintenance Results * US Breast Right Limited (10/21/2024 10:45 AM GENERATION MECHANIC HELPER) Anatomical Region Laterality Modality Breast Right Ultrasound 10/21/2024 10:5 1 AM GENERATION MECHANIC HELPER Impressions 10/21/2024 12:09 PM GENERATION MECHANIC HELPER No evidence of malignancy within the RIGHT breast. ??No imaging findings to explain patient's RIGHT breast symptoms. OVERALL FINAL ASSESSMENT: BI-RADS Category 1: Negative. RECOMMENDATION: 1. Annual screening mammography is recommended. ??The patient will be due for annual mammogram in March 2025. 2. Clinical follow-up is recommended for RIGHT breast. Dr. Nikolai Slaughter MD discussed the above findings and recommendations with the patient, who expressed her understanding of the management plan. Dictated by: Nikolai Slaughter MD The radiology attending physician has personally reviewed this study, and had reviewed and/or edited this written report and agrees with it. Electronically signed by: Raya Price M.D. Narrative 10/21/2024 12:09 PM GENERATION MECHANIC HELPER EXAMINATION: RIGHT UNILATERAL DIGITAL DIAGNOSTIC MAMMOGRAM AND DIGITAL BREAST TOMOSYNTHESIS; RIGHT BREAST SONOGRAM HISTORY: 71-year-old woman with history of invasive ductal carcinoma of the LEFT breast status post LEFT breast conservation therapy with new diffuse RIGHT breast pain with 2 focal areas of pain in the 3:00 and 9:00 positions with additional breast soreness for 2 to 3 months. No palpable abnormality is identified on physical examination by physician or provider. COMPARISON: [facility], most recently 03/12/2024, dating back to 01/27/2020. TECHNIQUE: ?? Full field digital mammographic views of the RIGHT breast were performed, including computer aided detection (CAD) and digital breast tomosynthesis (DBT). Directed ultrasound evaluation of the RIGHT breast was performed. BREAST PARENCHYMAL COMPOSITION: The breasts are extremely dense, which lowers the sensitivity of mammography. MAMMOGRAM FINDINGS: There is a suspicious mass, architectural distortion, or calcification within the RIGHT breast. ?? SONOGRAM FINDINGS: RIGHT breast, 9:00, 4 cm and 8 cm from the nipple, in the areas of focal pain, there is normal breast tissue without cystic or solid mass identified. ?? RIGHT breast, 3:00, 4 cm from the nipple, in the area of focal pain, there is normal breast tissue without cystic or solid mass identified. ?? Procedure Note Raya Price MD - 10/21/2024 EXAMINATION: RIGHT UNILATERAL DIGITAL DIAGNOSTIC MAMMOGRAM AND DIGITAL BREAST TOMOSYNTHESIS; RIGHT BREAST SONOGRAM HISTORY: 71-year-old woman with history of invasive ductal carcinoma of the LEFT breast status post LEFT breast conservation therapy with new diffuse RIGHT breast pain with 2 focal areas of pain in the 3:00 and 9:00 positions with additional breast soreness for 2 to 3 months. No palpable abnormality is identified on physical examination by physician or provider. COMPARISON: [facility], most recently 03/12/2024, dating back to 01/27/2020. TECHNIQUE: Full field digital mammographic views of the RIGHT breast were performed, including computer aided detection (CAD) and digital breast tomosynthesis (DBT). Directed ultrasound evaluation of the RIGHT breast was performed. BREAST PARENCHYMAL COMPOSITION: The breasts are extremely dense, which lowers the sensitivity of mammography. MAMMOGRAM FINDINGS: There is a suspicious mass, architectural distortion, or calcification within the RIGHT breast. SONOGRAM FINDINGS: RIGHT breast, 9:00, 4 cm and 8 cm from the nipple, in the areas of focal pain, there is normal breast tissue without cystic or solid mass identified. RIGHT breast, 3:00, 4 cm from the nipple, in the area of focal pain, there is normal breast tissue without cystic or solid mass identified. IMPRESSION: No evidence of malignancy within the RIGHT breast. No imaging findings to explain patient's RIGHT breast symptoms. OVERALL FINAL ASSESSMENT: BI-RADS Category 1: Negative. RECOMMENDATION: 1. Annual screening mammography is recommended. The patient will be due for annual mammogram in March 2025. 2. Clinical follow-up is recommended for RIGHT breast. Dr. Nikolai Slaughter MD discussed the above findings and recommendations with the patient, who expressed her understanding of the management plan. Dictated by: Nikolai Slaughter MD The radiology attending physician has personally reviewed this study, and had reviewed and/or edited this written report and agrees with it. Electronically signed by: Raya Price M.D. us Gena Villa CABLE INSTALLATION MANAGER IMG MAMMO PROCEDURES Final Resul t * Diagnostic Mammogram Right W Rd (10/21/2024 10:27 AM GENERATION MECHANIC HELPER) Anatomical Region Laterality Modality Breast Right Mammography 10/21/2024 10:5 1 AM GENERATION MECHANIC HELPER Impressions 10/21/2024 12:09 PM GENERATION MECHANIC HELPER No evidence of malignancy within the RIGHT breast. ??No imaging findings to explain patient's RIGHT breast symptoms. OVERALL FINAL ASSESSMENT: BI-RADS Category 1: Negative. RECOMMENDATION: 1. Annual screening mammography is recommended. ??The patient will be due for annual mammogram in March 2025. 2. Clinical follow-up is recommended for RIGHT breast. Dr. Nikolai Slaughter MD discussed the above findings and recommendations with the patient, who expressed her understanding of the management plan. Dictated by: Nikolai Slaughter MD The radiology attending physician has personally reviewed this study, and had reviewed and/or edited this written report and agrees with it. Electronically signed by: Raya Price M.D. Narrative 10/21/2024 12:09 PM GENERATION MECHANIC HELPER EXAMINATION: RIGHT UNILATERAL DIGITAL DIAGNOSTIC MAMMOGRAM AND DIGITAL BREAST TOMOSYNTHESIS; RIGHT BREAST SONOGRAM HISTORY: 71-year-old woman with history of invasive ductal carcinoma of the LEFT breast status post LEFT breast conservation therapy with new diffuse RIGHT breast pain with 2 focal areas of pain in the 3:00 and 9:00 positions with additional breast soreness for 2 to 3 months. No palpable abnormality is identified on physical examination by physician or provider. COMPARISON: [facility], most recently 03/12/2024, dating back to 01/27/2020. TECHNIQUE: ?? Full field digital mammographic views of the RIGHT breast were performed, including computer aided detection (CAD) and digital breast tomosynthesis (DBT). Directed ultrasound evaluation of the RIGHT breast was performed. BREAST PARENCHYMAL COMPOSITION: The breasts are extremely dense, which lowers the sensitivity of mammography. MAMMOGRAM FINDINGS: There is a suspicious mass, architectural distortion, or calcification within the RIGHT breast. ?? SONOGRAM FINDINGS: RIGHT breast, 9:00, 4 cm and 8 cm from the nipple, in the areas of focal pain, there is normal breast tissue without cystic or solid mass identified. ?? RIGHT breast, 3:00, 4 cm from the nipple, in the area of focal pain, there is normal breast tissue without cystic or solid mass identified. ?? Procedure Note Raya Price MD - 10/21/2024 EXAMINATION: RIGHT UNILATERAL DIGITAL DIAGNOSTIC MAMMOGRAM AND DIGITAL BREAST TOMOSYNTHESIS; RIGHT BREAST SONOGRAM HISTORY: 71-year-old woman with history of invasive ductal carcinoma of the LEFT breast status post LEFT breast conservation therapy with new diffuse RIGHT breast pain with 2 focal areas of pain in the 3:00 and 9:00 positions with additional breast soreness for 2 to 3 months. No palpable abnormality is identified on physical examination by physician or provider. COMPARISON: [facility], most recently 03/12/2024, dating back to 01/27/2020. TECHNIQUE: Full field digital mammographic views of the RIGHT breast were performed, including computer aided detection (CAD) and digital breast tomosynthesis (DBT). Directed ultrasound evaluation of the RIGHT breast was performed. BREAST PARENCHYMAL COMPOSITION: The breasts are extremely dense, which lowers the sensitivity of mammography. MAMMOGRAM FINDINGS: There is a suspicious mass, architectural distortion, or calcification within the RIGHT breast. SONOGRAM FINDINGS: RIGHT breast, 9:00, 4 cm and 8 cm from the nipple, in the areas of focal pain, there is normal breast tissue without cystic or solid mass identified. RIGHT breast, 3:00, 4 cm from the nipple, in the area of focal pain, there is normal breast tissue without cystic or solid mass identified. IMPRESSION: No evidence of malignancy within the RIGHT breast. No imaging findings to explain patient's RIGHT breast symptoms. OVERALL FINAL ASSESSMENT: BI-RADS Category 1: Negative. RECOMMENDATION: 1. Annual screening mammography is recommended. The patient will be due for annual mammogram in March 2025. 2. Clinical follow-up is recommended for RIGHT breast. Dr. Nikolai Slaughter MD discussed the above findings and recommendations with the patient, who expressed her understanding of the management plan. Dictated by: Nikolai Slaughter MD The radiology attending physician has personally reviewed this study, and had reviewed and/or edited this written report and agrees with it. Electronically signed by: Raya Price M.D. us Genachristian Villa NP IMG MAMMO PROCEDURES Final Resul t * eGFR (10/11/2024 1:55 PM GENERATION MECHANIC HELPER) eGFR 77 >=60 mL/min/1. 73 m2 Comment: Interpretive Data Reference Interval Normal ?>/= 90 mL/min/1.73m2 Mildly decreased* ? 60 - 89 mL/min/1.73m2 Mildly to moderately decreased ?45 - 59 mL/min/1.73m2 Moderately to severely decreased ??30 - 44 mL/min/1.73m2 Severely decreased ?15 - 29 mL/min/1.73m2 Kidney Failure ?< 15 ??mL/min/1.73m2 *Relative to young adult level Estimated glomerular filtration rate is determined by the 2020 CKD-EPI equation recommended by the National Kidney Foundation (A Unifying Approach to GFR Estimation: Recommendations of the NKF-ASK Task Force on Reassessing the Inclusion of Race in Diagnosing Kidney Disease, JASN 2020). The CKD-EPI equation should not be used for patients with unstable renal function and has not been validated in children and those over 70. Current interpretive data was last reviewed 2021. Blood 10/11/2024 1:55 PM GENERATION MECHANIC HELPER 10/11/2024 2:02 PM GENERATION MECHANIC HELPER us Sai Sesay MD LAB BLOOD ORDERABLES Final Resu lt [facility] [place] [address] * TSH (10/11/2024 1:55 PM GENERATION MECHANIC HELPER) Thyroid Stimulating Hormone 2.15 0.30 - 4.20 mcIUnit/mL Blood 10/11/2024 1:55 PM GENERATION MECHANIC HELPER 10/11/2024 2:02 PM GENERATION MECHANIC HELPER us Sai Sesya MD LAB BLOOD ORDERABLES Final Resu lt Performing Organization Address [facility] Co de Phone Number [facility] [place] [address] * T4, free (10/11/2024 1:55 PM GENERATION MECHANIC HELPER) Free T4 1.12 0.90 - 1.70 ng/dL Blood 10/11/2024 1:55 PM GENERATION MECHANIC HELPER 10/11/2024 2:02 PM GENERATION MECHANIC HELPER Sai Sesay MD LAB BLOOD ORDERABLES Final Resu lt Performing Organization Address [facility] de Phone Number [facility] [place] [address] * Renal function panel (10/11/2024 1:55 PM GENERATION MECHANIC HELPER) Pathologist [facility] Sodium 142 135 - 145 mmol/L Potassium, pl 4.2 3.3 - 4.9 mmol/L [facility] Chloride 105 97 - 110 mmol/L [facility] CO2 32 22 - 32 mmol/L [facility] Anion gap 5 2 - 15 mmol/L [facility] BUN 15 6 - 25 mg/dL [facility] Creatinine 0.79 0.60 - 1.10 mg/dL [facility] Glucose 94 70 - 199 mg/dL [facility] Comment: Interpretive Data Fasting glucose >/= 126 mg/dl is diagnostic for diabetes. ?? Fasting is defined as no caloric intake for at least 8 hours. Fasting glucose between 100 mg/dl to 125 mg/dl is diagnostic of prediabetes. In a patient with classic symptoms of hyperglycemia or hyperglycemic crisis, a random glucose >/= 200 mg/dl is diagnostic for diabetes. In the absence of unequivocal hyperglycemia, results should be confirmed by repeat testing. The classification and Diagnosis of Diabetes Diabetes Care 2021; 46: S19-S40. Current interpretive data was last revised 2022. Calcium 9.2 8.5 - 10.3 mg/dL [facility] Phosphorus, pl 3.1 2.3 - 4.5 mg/dL [facility] Albumin 4.1 3.5 - 5.0 g/dL [facility] Blood 10/11/2024 1:55 PM GENERATION MECHANIC HELPER 10/11/2024 2:02 PM GENERATION MECHANIC HELPER us Sai Sesay MD LAB BLOOD ORDERABLES Final Resu lt [facility] Department [place] [address] * US Head Neck Soft Tissue (10/08/2024 11:11 AM GENERATION MECHANIC HELPER) Anatomical Region Laterality Modality Head and Neck N/A Ultrasound 10/08/2024 12:1 1 PM GENERATION MECHANIC HELPER Impressions 10/08/2024 1:16 PM GENERATION MECHANIC HELPER 1. Postoperative changes of left hemithyroidectomy without evidence of tumor recurrence. 2. No suspicious adenopathy. 3. No suspicious right thyroid nodules. Dictated by: Mary Rayo M.D. The radiology attending physician has personally reviewed this study, and had reviewed and/or edited this written report and agrees with it. Electronically signed by: Chio Suresh M.D. 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 COMPARISON: 04/10/2024 FINDINGS: Postsurgical changes of left hemithyroidectomy. ??There is no evidence of tumor recurrence in the thyroidectomy bed. ??There are benign appearing lymph nodes within the central and lateral compartments of the neck. ??No suspicious lymph nodes. Size right lobe: 3.9 cm craniocaudal, 1.7 cm transverse, 1.9 cm AP. Scattered mixed solid and cystic subcentimeter nodules in the right thyroid lobe which do not require follow-up. 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 COMPARISON: 04/10/2024 FINDINGS: Postsurgical changes of left hemithyroidectomy. There is no evidence of tumor recurrence in the thyroidectomy bed. There are benign appearing lymph nodes within the central and lateral compartments of the neck. No suspicious lymph nodes. Size right lobe: 3.9 cm craniocaudal, 1.7 cm transverse, 1.9 cm AP. Scattered mixed solid and cystic subcentimeter nodules in the right thyroid lobe which do not require follow-up. IMPRESSION: 1. Postoperative changes of left hemithyroidectomy without evidence of tumor recurrence. 2. No suspicious adenopathy. 3. No suspicious right thyroid nodules. Dictated by: Mary Rayo M.D. The radiology attending physician has personally reviewed this study, and had reviewed and/or edited this written report and agrees with it. Electronically signed by: Chio Suresh M.D. Raghav Burkett MD [employer] US PROCEDURES Final Resu lt * Dexa Axial Skeleton Bone Density 1 or 2 Site (08/27/2024 10:19 AM CDT) Anatomical Region Laterality Modality Body N/A Radiographic Patricia ging Historical Provider MD PONCE DXA PROCEDURES Final Result * Screening Mammogram Bilateral [address] Rd (03/12/2024 12:22 PM CDT) Anatomical Region Laterality Modality Breast Bilateral Mammography Narrative 03/22/2024 11:58 AM CDT Mammogram Technique: Bilateral Digital Breast Tomosynthesis, Bilateral C-view 2D Screening mammogram. ??Views obtained: ??bilateral craniocaudal and bilateral mediolateral oblique. ??Computer Aided Detection was performed. Mammogram Findings: The present examination has been compared to prior imaging studies performed at [facility] on 02/26/2021, 03/04/2022 and 03/10/2023. The breasts are almost entirely fatty. There are post breast conservation therapy changes in the left breast. There is no suspicious abnormality in either breast. Impression: Post breast conservation therapy changes in the left breast are benign. Annual screening mammography is recommended. OVERALL FINAL ASSESSMENT: BI-RADS CATEGORY 2: ??Benign. Procedure Note Richa Tellez MD - 03/22/2024 Mammogram Technique: Bilateral Digital Breast Tomosynthesis, Bilateral C-view 2D Screening mammogram. Views obtained: bilateral craniocaudal and bilateral mediolateral oblique. Computer Aided Detection was performed. Mammogram Findings: The present examination has been compared to prior imaging studies performed at [facility] on 02/26/2021, 03/04/2022 and 03/10/2023. The breasts are almost entirely fatty. There are post breast conservation therapy changes in the left breast. There is no suspicious abnormality in either breast. Impression: Post breast conservation therapy changes in the left breast are benign. Annual screening mammography is recommended. OVERALL FINAL ASSESSMENT: BI-RADS CATEGORY 2: Benign. Yeimy Mcdaniel NP IMG MAMMO PROCEDURES Final Result from Last 3 Months or Most Recently Relevant to Health Maintenance Insurance MEDICARE [facility] MEDICARE [facility] MEDICARE [facility] Advance Directives For more information, please contact: [phone] Documents on File Type Date Recorded Patient Mine Shifter Expl anation ADVANCE DIRECTIVE 01/08/2024 1:08 PM * Full Code (Latest Code Status on File) Date Activated Date Inactivated Comments 04/21/2024 1:01 PM 04/22/2024 2:24 PM * Full Code Date Activated Date Inactivated Comments 12/31/2023 12:25 AM 12/31/2023 6:11 PM Care Teams Fund Accounting Manager Relationship Specialty Start Date End Date Delmy Carrero DO [address] [facility] [address] [place] [address] PCP - General Family Medicine 01/11/21 Aft, Amee Bustos MD PhD [address] [place] [address] Surgeon Surgical Oncology 03/29/20 Keren Watts MD [address] [facility] [address] [place] [address] Radiation Oncologist Radiation Oncology 03/29/20 Dima Grant DO [address] [facility] [address] [place] [address] Medical Oncologist/Certified Professional Coder Hematology and Oncology 03/29/20 Sai Sesay MD [address] [address] Consulting Physician Endocrinology Diabetes & Metabolism 05/04/24
--- OUTSIDE RECORDS SUMMARY | 2024-12-02 05:37 | XMS_ITS ---
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 Will check thyroid function test and adjust levothyroxine dose accordingly. 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 Akhtar. PET showed no metastases. Low risk, no BAZZI given Follow up neck LIZETH Thyroid cancer 04/06/2024 Thyroid nodule 03/16/2024 Cystocele, midline 02/25/2024 Nasal obstruction 01/08/2024 Facial pain 01/08/2024 Closed fracture of nasal bones 01/06/2024 Fall, initial encounter 12/30/2023 Osteoporosis without current pathological fractu re 04/10/2022 Assessment & Plan (10/11/2024 1:34 PM CLAIMS SPECIALIST): On Prolia History of breast cancer 09/05/2021 Feeling of incomplete bladder emptying Assessment & Plan (01/13/2021 1:58 PM CLAIMS SPECIALIST): -PVR 30 PLAN: -Rock back and forth and squeeze pelvic muscles at end of voiding. Urge incontinence 01/13/2021 Assessment & Plan (01/13/2021 2:07 PM CLAIMS SPECIALIST): -Avoid caffeine and large amounts of fluid [...] 01/13/2021 Assessment & Plan (01/13/2021 2:08 PM CLAIMS SPECIALIST): -Refer to handout on bladder irritants and try to avoid. 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 Past Plans Oncology Chemotherapy Treatment Plan Name Start Date Discontinue Date Treatment Medications Discontinue Reason Plan Provider Cycles CMF: (Cyclophospham meño IV / Methotrexate IVP / Fluorouracil IVP) 21 Day Cycles - Breast 0 11/07/2023 cycloPHOSphamide (CYTOXAN) IVPB (vial 20 mg/mL) (J9075)cycloPHOSph amide IVPB in 250 mL (vial 200 mg/mL)(J9073)fluor ouracil (ADRUCIL)methotrex ate 25 mg/mL Automatic discontinuation of dormant plans Dima Grant DO 6 of 6 cycles started Radiation Treatments * Plan Last Treated On Elapsed Days Fractions Treated Prescribed Fraction Dose Prescribed Total Dose LEFT BREAST 09/26/2020 28 5 570 cGy 2,850 c Gy Reference Point Last Treated On Elapsed Days Session Dose Total Dose [id number] 09/26/2020 28 570 cGy 2,850 cGy Lifetime Dose Tracking * Chemical Lifetime Dose Automatic Entry Manual Entr y cyclophosphamide 3,466.237 mg/m2 (6,508 mg) 3,466.237 mg/m2 (6,508 mg) 0 mg/m2 (0 mg) DLP 3,500 mGycm 3,500 mGycm 0 mGycm Treatment Summaries Malignant neoplasm of lower-outer quadrant of left breast of female, estrogen receptor positive (HCC)* Images from the original note were not included. [address], [address] [place] [address] This Survivorship Care Plan is a cancer treatment summary and follow-up plan and is provided to youto keep with your health care records and to share with your primary care provider or any of your doctors and nurses. This summary is a brief record of major aspects of your cancer treatment not a detailed or comprehensive record of your care. You should review this with your cancer provider. Treatment Summary and Survivorship Care Plan for Breast Cancer General Information Patient name Joanna Mancilla (home) Date of 1945 Health Care Providers (Including Names, Institutions) Provider Name: Contact Information: Primary Care Physician Delmy Carrero DO [phone] Surgeon Aft, Amee Bustos MD PhD [phone] Radiation Oncologist Keren Watts MD [phone] Medical Oncologist Dima Grant DO [phone] Plastic Surgeon Other Providers Treatment Summary Cancer Diagnosis Information Diagnosis Malignant neoplasm of lower-outer quadrant of left breast of female, estrogen receptor positive (CMS/HCC) (HCC) Diagnosis date 01/24/2020 Staging information Cancer Staging Malignant neoplasm of lower-outer quadrant of left breast of female, estrogen receptor positive (CMS/HCC) (HCC) Staging form: Breast, AJCC 8th Edition - Pathologic stage from 02/22/2020: Stage IA (pT1b, pN0(sn), cM0, G3, ER+, NJ-, HER2-) - Signed by Keren Watts MD on 03/29/2020 - Clinical stage from 03/17/2020: Stage IB (cT1b, cN0(sn), cM0, G3, ER+, NJ-, HER2-) - Signed by Dima Grant DO on 03/19/2020 Estrogen: Positive Estrogen: Positive Progesterone: Negative Progesterone: Negative HER2: Negative HER2: Negative Treatment Completed Surgery 02/22/2020 BIOPSY BREAST NEEDLE LOCALIZATION Left bracket Needle loc 9:30am (L), LUMPECTOMY (L), BIOPSY SENTINEL LYMPH NODE Nuc Med 8am (L) left Partial mastectomy wire localicaion left Axillary sentinal lymph node biopsy with blue dye and lymphoscintigraphy Radiation Radiation Treatments Active No active radiation treatments to show. Historical Plans LEFT BREAST Most recent treatment: Dose planned: 570 cGy (fraction 5 on 09/26/2020) Total: Dose planned: 2,850 cGy Elapsed Days: 28 Reference Points [id number] Most recent treatment: Dose given: 570 cGy (on 09/26/2020) Total: Dose given: 2,850 cGy Elapsed Days: 28 Systemic Therapy (chemotherapy, hormonal therapy, other) CMF: (Cyclophosphamide IV / Methotrexate IVP / Fluorouracil IVP) 21 Day Cycles - Breast Treatment goal [No plan goal] Status Active Start Date 04/18/2020 End Date 08/01/2020 Provider Dima Grant DO Chemotherapy cyclophosphamide (CYTOXAN) 1,122 mg in sodium chloride 0.9% 250 mL IVPB, 600 mg/m2 = 1,122 mg, intravenous, Once, 6 of 6 cycles Dose modification: 480 mg/m2 (original dose 600 mg/m2, Cycle 6) Administration: 1,122 mg (04/18/2020), 1,122 mg (05/09/2020), 1,122 mg (05/30/2020), 1,122 mg (06/20/2020), 1,120 mg (07/11/2020), 900 mg (08/01/2020) methotrexate 25 mg/mL IV syringe 75 mg 3 mL, 40 mg/m2 = 75 mg, intravenous, Once, 6 of 6 cycles Dose modification: 32 mg/m2 (original dose 40 mg/m2, Cycle 6) Administration: 75 mg (04/18/2020), 75 mg (05/09/2020), 75 mg (05/30/2020), 75 mg (06/20/2020), 75 mg (07/11/2020), 60 mg (08/01/2020) fluorouracil (ADRUCIL) IV syringe 1,125 mg 22.5 mL, 600 mg/m2 = 1,125 mg, intravenous, Once, 6 of 6cycles Dose modification: 480 mg/m2 (original dose 600 mg/m2, Cycle 6) Administration: 1,125 mg (04/18/2020), 1,125 mg (05/09/2020), 1,125 mg (05/30/2020), 1,125 mg (06/20/2020), 1,125 mg (07/11/2020), 900 mg (08/01/2020) Lifetime Dose Tracking Lifetime Dose Tracking cyclophosphamide: 3,466.237 mg/m2 (6,508 mg) Research Studies Persistent symptoms or side effects that have continued after finishing treatment: menopausal symptoms, fatigue Family History Cancer Cancer-related family history includes Breast cancer (age of onset: 55) in her father's sister; Colon cancer (age of onset: 55) in her mother; Melanoma (age of onset: 38) in herbrother; Ovarian cancer (age of onset: 65) in her paternal grandmother. Genetic Testing Lab Performed: Testing Complete Results oncotype yes Recurrence score 32 Tell your provider if there is a history of cancer in your family, if another member of your familywas diagnosed with cancer since your last visit. The following risk factors may indicate that breast cancer could run in the family: Orthodoxy heritage History of ovarian cancer in the patient or any 1st or 2nd degree relative Any 1st degree relative with breast cancer before the age of 50 Two or more 1st or 2nd degree relative diagnosed with breast cancer at any age Patient or relative diagnosed with bilateral breast cancer History of breast cancer in a male relative Treatment Ongoing Additional Treatment Start Date Planned Duration Possible Side Effects Tamoxifen Hot flashes and vaginal discharge (common); endometrial cancer, serious blood clots and eye problems (all very rare). Other rare side effects may occur. Aromatase Inhibitors (anastrozole, exemestane and letrozole) 11/30/2020 5 years Hot flashes, joint/muscle aches, vaginal dryness and bone loss (common); hair thinning (rare) Other rare side effects may occur. GnRH agonist (Zoladex, Lupron) for ovarian suppression Hot flashes and vaginal dryness (common); other rare side effects may occur. Herceptin Rarely shortness of breath, new swelling in legs (if these occur please notify your medical oncologist). Antiresorptive medications Fever and flu symptoms, low levels of calcium in your blood, bone and joint pain, constipation or diarrhea, low energy, feeling sick, changes in kidneys, irritation of the food pipe, changes to the jaw bone. Tell your dentist you are taking this medication. Calcium + Vitamin D 19-50 years age and males age 51-70 years: recommend 1,000 mg/day calcium & 600 IU/day vitamin D Females age 51-70 1200 mg/day calcium and 600 IU/day vitamin D Over 70 years age take 1200 mg/day calcium and 800 IU/day of vitamin D An irregular heartbeat; nausea, constipation; weakness, drowsiness, headache; dry mouth, or a metallic taste in your mouth; or muscle or bone pain. Other: Follow-up Care Plan Your follow-up care plan is design to inform you and primary care providers regarding the recommended and required follow-up, cancer screening and routine health maintenance that is needed to maintain optimal health. Coordinating Provider When/How often Dima Grant, DO Every 3-6 months for year 1 to 3 Dima Grant, DO Every 12 months for year 4 to 5 Keren Watts MD Every 3 to 6 months for the first year and then yearly Jaimee, Amee Bustos MD PhD Yearly Delmy Carrero After 5 years, annual follow up Cancer Surveillance or other Recommended Tests Coordinating Provider Test How Often Dima Grant, DO - Year 1-5, Delmy Carrero, DO - After year 5 Mammogram for remaining breast(s) Yearly Dima Grant, DO Cardiac monitoring Every 3 months while on Herceptin PATIENT OMBUDSPERSON: No care count team member to display Pap/pelvic exam (woman only) As indicated by provider Medical Oncologist: Dima Grant, DO Bone Density Every 2 years if on an aromatase inhibitor or as indicated by your provider CT/PET and tumor markers. Not recommended in the absence of signs or symptoms of cancer recurrence Possible late- and long-term effects that someone with this type of cancer and treatment may experience: Lymphedema The risk for developing lymphedema varies across treatments, time and the patient. This may occur right after surgery or months to years after treatment. It affects 12 to 25% of patients. The risk increases with the removal of lymph nodes, radiation therapy and injury. Avoid blood pressure or blooddraw in affected arm if lymph nodes were removed. If you experience skin tightness, swelling, warmth or redness in your affected side, tell your provider right away. Physical therapy can improve lymph drainage. Talk with your provider about approved exercise. Avoid extreme temperature, injury or infection on the affected side. Talk to your provider about a compression stocking, especially when flying. Peripheral Neuropathy This may feel like numbness, tingling or painful sensations that develop in your hands and feet. Neuropathy can occur during or shortly after treatment. Sometimes it goes away. For some patients the symptoms can be chronic. Talk to your provider about your symptoms. Some medications may lessen the symptoms. Other approaches include acupuncture, physical therapy and exercise. Fatigue Many patients experience some level of fatigue. Some patients experience severe and ongoing fatigue. An active lifestyle with healthy sleep patterns can improve your energy levels. Talk to your provider about ongoing (more than 3 months) fatigue. It is important to remember that these symptoms can be due to other causes like diabetes or with normal aging. If these or any other new symptoms occur bring these to attention of your health care provider. These symptoms should be brought to the attention of your provider: Anything that represents a brand new symptom; Anything that represents a persistent symptom; Anything you are worried about that might be related to the cancer coming back. Please continue to see your primary care provider for all general health care recommended for a patient your age such as routine immunizations, and routine non-breast cancer screening like colonoscopy or bone density exams. Consult with your health care provider about prevention and screening for bone loss using bone density tests. Cancer survivors may experience issues with the areas listed below. If you have any concerns in these or other areas, please speak with your doctors or nurses to find out how you can get help with them. Anxiety and depression Emotional and mental health Fatigue Fertility Financial advice or assistance Insurance Memory or concentration loss Parenting Physical functioning School/work Sexual functioning Stopping smoking Weight changes Other A number of lifestyle/behaviors can affect your ongoing health, including the risk for the cancer coming back or developing another cancer. Discuss these recommendations with your doctor or nurse: Eat a healthy diet: focus on lean meats and proteins, more fruits, vegetables and whole grains and low in sugars and fats. Limit red meat and avoid processed meat. Maintain a healthy weight; avoid being overweight. Aim for a normal body mass index (BMI) of 18.5-24.9. Help learning to eat healthier, call the transport company manager Niecy Costello at: [phone] Have an active lifestyle, strive for 30 minutes of moderate exercise 5 times a week and strength orresistance training at least twice a week. Use broad-spectrum (UVA+UVB) sunscreen with SPF 30 or greater, is water resistant, limit time spentin the sun (10 am-4 pm), wear hat, wear UV protective clothing, wear sunglasses. Never use a tanning bed. Skin that was irradiated may be more sensitive over your lifetime. Do not smoke or chew tobacco; participate in a smoking cessation program. Limit alcohol intake, 1 drink per day for a woman and 2 drinks per day for a man. Resources you may be interested in: [facility] A National Cancer [place] [facility] [email or web address]://www.[email or web address]/ [facility] 1st floor of [facility] [phone]. Computer access, educational material, counseling services (FREE) Cancer Resources: www.cancer.net [place] Disabilities Act: The U.S. Department of Justice provides information about the Americans with Disabilities Act (ADA). Toll free number http://www.ada.gov/ Occupational Therapy at [facility]. Improve memory and thinking following chemotherapy. Improve your performance at home, work and in the community. or Toll free www.ot.[facility]/patients Managing your weight after a cancer diagnosis: http://www.cancer.net/sites/cancer.net/files/weight_after_cancer_diagnosis.pdf National Coalition for Cancer Survivorship: http://www.canceradvocacy.org/ [employer] Cancer Society Cancer Survivors Network: http://csn.cancer.org/ [employer]: https://survivorship.cancer.gov/ an online tool for cancer survivors andcaregivers created by the [place] Cancer Society and the National Cancer [place]. It provides: Information on dealing with side effects from cancer and treatment Caregivers with support and resources Practical advice about talking to friends and family about cancer Questions to ask their health care team Help understanding their rights in the workplace
--- OUTSIDE RECORDS SUMMARY | 2024-12-02 05:37 | XMS_ITS | Referral Summary ---
Author Organization [facility] Address [address] [place] [address] Care Team Providers Care Aircraft Power Plant Assembler Name Role Phone Aft, Amee Bustos MD PhD Unavailable Keren Watts MD Unavailable Dima Grant DO Unavailable Delmy Carrero DO Primary Care Provider [phone] Sai Sesay MD Unavailable [phone] Encounters Date Type Department Care Team Description 10/26/2024 Telephone [facility] Medicine Radiation Oncology [address] [place], [place] [id number] Gena Villa NP 10/21/2024 9:47 AM MEXICAN FOOD MACHINE TENDER - 10/21/2024 11:59 PM MEXICAN FOOD MACHINE TENDER Hospital Encounter [facility] - Breast Imaging [address] [facility] [address] [place] [address] Breast pain Discharge Disposition: Discharge to home or self care 10/21/2024 9:47 AM MEXICAN FOOD MACHINE TENDER - 10/21/2024 11:59 PM MEXICAN FOOD MACHINE TENDER Hospital Encounter [facility] - Breast Imaging [address] [facility] [address] [place] [address] Breast pain Discharge Disposition: Discharge to home or self care 10/21/2024 1:00 PM MEXICAN FOOD MACHINE TENDER Therapy [facility] Physical Therapy [address] [facility] 1st Floor [address] [place] [address] Cecilia Morris DPT Cystocele with prolapse (Primary Dx) 10/11/2024 1:45 PM MEXICAN FOOD MACHINE TENDER Lab [facility] - Lab Collection [address] [facility] [address] [place] [address] Post-surgical hypothyroidism 10/11/2024 1:20 PM MEXICAN FOOD MACHINE TENDER Office Visit [facility] Endocrinology Metabolism and Lipid [address] [facility] Floor 1, [address] [place] [phone] Sai Sesay MD Papillary thyroid carcinoma (HCC) (Primary Dx); Osteoporosis without current pathological fracture, unspecified osteoporosis type; Post-surgical hypothyroidism; Full incontinence of feces 10/08/2024 10:12 AM MEXICAN FOOD MACHINE TENDER - 10/08/2024 11:59 PM MEXICAN FOOD MACHINE TENDER Hospital Encounter [facility] [address] [place] [address] Thyroid cancer (HCC) Discharge Disposition: Discharge to home or self care 10/05/2024 1:00 PM MEXICAN FOOD MACHINE TENDER Therapy [facility] Physical Therapy [address] [facility] 1st Floor [address] [place] [phone] Cecilia Morris DPT Cystocele with prolapse (Primary Dx) 09/23/2024 1:00 PM MEXICAN FOOD MACHINE TENDER Therapy [facility] Physical Therapy [address] [facility] 1st Floor [address] [place] [phone] Cecilia Morris DPT Cystocele with prolapse (Primary Dx) 09/22/2024 Telephone [facility] Obstetrics and Gynecology [address] [facility] [address] [place] [phone] Ritika España RN 09/22/2024 Telephone [facility] Advanced Medicine Radiation Oncology [address] [facility] Advanced [place] [address] Gena Villa NP 09/22/2024 1:00 PM MEXICAN FOOD MACHINE TENDER Office Visit [facility] Obstetrics and Gynecology [address] [facility] 7th Floor [address] [place] [phone] Mariaa Pham MD Cystocele with prolapse (Primary Dx) 09/21/2024 10:00 AM MEXICAN FOOD MACHINE TENDER Office Visit [facility] Advanced Medicine Radiation Oncology [address] [facility] [place] [address] Gena Villa NP Breast pain (Primary Dx); Malignant neoplasm of lower-outer quadrant of left breast of female, estrogen receptor positive (HCC) from Last 3 Months Allergies Active Allergy Reactions Criticality Noted Date [...] 2 (two) times a day Active vit C,S-Kj-ebndw-lut ein-zeaxan (PreserVision AREDS-2) 250-90-40-1 mg capsuleIndicatio ns:supplement [...] BY MOUTH EVERY DAY 90 tablet 1 4 Active denosumab (PROLIA) 60 mg/mL syringe Inject under the skin once Active estrogens, conjugated, (PREMARIN) vaginal cream Apply nightly to vagina for 1 week, then Friday/ y/ Friday 42.5 g 11 4 09/22/20 25 Active Active Problems Problem Noted Date Diagnosed Date Post-surgical hypothyroidism 10/11/2024 Assessment & Plan (10/11/2024 1:29 PM MEXICAN FOOD MACHINE TENDER): Continue current levothyroxine dose. Will check thyroid function test and adjust levothyroxine dose accordingly. TSH goal lower normal Full incontinence of feces 10/11/2024 Prolapse of anterior vaginal wall 06/16/2024 S/P partial thyroidectomy 04/27/2024 Papillary thyroid carcinoma 04/07/2024 Assessment & Plan (10/11/2024 1:30 PM MEXICAN FOOD MACHINE TENDER): s/p Left thyroidectomy on 04/21/[address] Akhtar. PET showed no metastases. Low risk, no BAZZI given Follow up neck LIZETH Thyroid cancer 04/06/2024 Thyroid nodule 03/16/2024 Cystocele, midline 02/25/2024 Nasal obstruction 01/08/2024 Facial pain 01/08/2024 Closed fracture of nasal bones 01/06/2024 Fall, initial encounter 12/30/2023 Osteoporosis without current pathological fractu re 04/10/2022 Assessment & Plan (10/11/2024 1:34 PM MEXICAN FOOD MACHINE TENDER): On Prolia History of breast cancer 09/05/2021 Feeling of incomplete bladder emptying Assessment & Plan (01/13/2021 1:58 PM MEXICAN FOOD MACHINE TENDER): -PVR 30 PLAN: -Rock back and forth and squeeze pelvic muscles at end of voiding. Urge incontinence 01/13/2021 Assessment & Plan (01/13/2021 2:07 PM MEXICAN FOOD MACHINE TENDER): -Avoid caffeine and large amounts of fluid [...] 01/13/2021 Assessment & Plan (01/13/2021 2:08 PM MEXICAN FOOD MACHINE TENDER): -Refer to handout on bladder irritants and try to avoid. 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, estrogen receptor positive 01/24/2020 Cancer Staging:Pathologic stage from 02/22/2020:Stage IA(pT1b, pN0(sn), cM0, G3, ER+, VA-, HER2-) - Signed by Keren Watts MD on 03/29/2020 Clinical stage from 03/17/2020:Stage IB(cT1b, cN0(sn), cM0, G3, ER+, VA-, HER2-) - Signed by Dima Grant DO on 03/19/2020 Immunizations Name Administration Dates Next Due INFLUENZA [id number] 07/29/2018 Influenza, Quadrivalent, Hig h Dose, Preservative Free, Intrr 08/25/2020 Influenza, Quadrivalent, Spl it, Pediatric, Preservative Free, Intramuscular 07/28/2019 Influenza, Trivalent, High D ose, Split, Preservative Free, Intramuscular 07/29/2018,09/04/2017 Influenza, Unspecified 07/13/2021 Moderna SARS-CoV-2 Monovalen t Vaccination (12+ YRS) 07/13/2021,01/24/2021,12/27/2020 Pneumococcal Conjugate PCV 13 09/04/2017 Pneumococcal Polysaccharide PPV23 10/07/2013 Tdap 03/07/2017 ZOSTER Recombinant 11/27/2019,08/05/2019, 019 Social History Tobacco Use Types Packs/Day Years Used Date Smoking Tobacco: Former Cigarettes 1 18 1 963 - 1981 Passive Smoke Exposure: Never Smokeless Tobacco: Never Tobacco Cessation:Counseling Given: Not Answered Alcohol Use Standard Drinks/Week Comments Yes 6 (1 standard drink = 0.6 oz pur e alcohol) [facility] Sportgenicities Answer Date Recorded In the past 12 months has e Hacking the [employer], gas, oil, or water [employer] threatened to shut off services in your [...] 12/31/2023 How often do you attend chur ch or buddhist services? More than 4 times per year 12/31/2023 Do you belong to any clubs o r organizations such as mandaen groups, unions, fraternal or athletic groups, or [...] and heating? 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 Not on file Not on file Not on file Last Filed Vital Signs Vital Sign Reading Time Taken Comments Blood Pressure 165/89 10/11/2024 12:56 PM MEXICAN FOOD MACHINE TENDER Pulse 85 10/11/2024 12:56 PM MEXICAN FOOD MACHINE TENDER Temperature 36.4 ??C (97.6 ??F) 10/11/2024 12:[address] Respiratory Rate 18 10/11/2024 12:56 PM MEXICAN FOOD MACHINE TENDER Oxygen Saturation 98% 08/18/2024 2:09 PM CDT Inhaled Oxygen Concentration - - Weight 71.5 kg (157 lb 9.6 oz) 10/11/2024 12:56 PM MEXICAN FOOD MACHINE TENDER Height 160 cm (5' 3 ) 10/11/2024 12:56 PM MEXICAN FOOD MACHINE TENDER Body Mass Index 27.92 10/11/2024 12:56 PM MEXICAN FOOD MACHINE TENDER Plan of Treatment Not on file Procedures Procedure Name Priority Date/Time Associated Diagnosis Comments US BREAST RIGHT LIMITED Schedule Routine, Read Routine (OP Routine) 10/21/2024 10:45 AM MEXICAN FOOD MACHINE TENDER Breast pain DIAGNOSTIC MAMMOGRAM RIGHT W RD Schedule Routine, Read Routine (OP Routine) 10/21/2024 10:27 AM MEXICAN FOOD MACHINE TENDER Breast pain EGFR Routine 10/11/2024 1:55 PM MEXICAN FOOD MACHINE TENDER Post-surgical hypothyroidism TSH Routine 10/11/2024 1:55 PM MEXICAN FOOD MACHINE TENDER Post-surgical hypothyroidism T4, FREE Routine 10/11/2024 1:55 PM MEXICAN FOOD MACHINE TENDER Post-surgical hypothyroidism RENAL FUNCTION PANEL Routine 10/11/2024 1:55 PM MEXICAN FOOD MACHINE TENDER Post-surgical hypothyroidism US SOFT TISSUE HEAD NECK Schedule Routine, Read Routine (OP Routine) 10/08/2024 11:11 AM MEXICAN FOOD MACHINE TENDER Thyroid cancer (HCC) DEXA AXIAL SKELETON BONE [...] US Breast Right Limited (10/21/2024 10:45 AM MEXICAN FOOD MACHINE TENDER) Anatomical Region Laterality Modality Breast Right Ultrasound 10/21/2024 10:5 1 AM MEXICAN FOOD MACHINE TENDER Impressions 10/21/2024 12:09 PM MEXICAN FOOD MACHINE TENDER No evidence of malignancy within the RIGHT [...] Raya Price M.D. Narrative 10/21/2024 12:09 PM MEXICAN FOOD MACHINE TENDER EXAMINATION: RIGHT UNILATERAL DIGITAL DIAGNOSTIC MAMMOGRAM AND [...] by: Raya Price M.D. us Gena Villa BILINGUAL STUDENT TUTOR IMG MAMMO PROCEDURES Final Resul t * Diagnostic Mammogram Right W Rd (10/21/2024 10:27 AM MEXICAN FOOD MACHINE TENDER) Anatomical Region Laterality Modality Breast Right Mammography 10/21/2024 10:5 1 AM MEXICAN FOOD MACHINE TENDER Impressions 10/21/2024 12:09 PM MEXICAN FOOD MACHINE TENDER No evidence of malignancy within the RIGHT [...] Raya Price M.D. Narrative 10/21/2024 12:09 PM MEXICAN FOOD MACHINE TENDER EXAMINATION: RIGHT UNILATERAL DIGITAL DIAGNOSTIC MAMMOGRAM AND [...] by: Raya Price M.D. us Gena Villa NP IMG MAMMO PROCEDURES Final Resul t * eGFR (10/11/2024 1:55 PM MEXICAN FOOD MACHINE TENDER) eGFR 77 >=60 mL/min/1. 73 m2 Comment: [...] last reviewed 2021. Blood 10/11/2024 1:55 PM MEXICAN FOOD MACHINE TENDER 10/11/2024 2:02 PM MEXICAN FOOD MACHINE TENDER us Sai Sesay MD LAB BLOOD ORDERABLES Final Resu lt Performing Organization Address [facility] [[email or web address] Co de Phone Number [facility] [email or web address] [address] * TSH (10/11/2024 1:55 PM MEXICAN FOOD MACHINE TENDER) Thyroid Stimulating Hormone 2.15 0.30 - 4.20 mcIUnit/mL Blood 10/11/2024 1:55 PM MEXICAN FOOD MACHINE TENDER 10/11/2024 2:02 PM MEXICAN FOOD MACHINE TENDER us Sai Sesay MD LAB BLOOD ORDERABLES Final Resu lt Performing Organization Address [facility] [[email or web address] Co de Phone Number [facility] [email or web address] [address] * T4, free (10/11/2024 1:55 PM MEXICAN FOOD MACHINE TENDER) Free T4 1.12 0.90 - 1.70 ng/dL Blood 10/11/2024 1:55 PM MEXICAN FOOD MACHINE TENDER 10/11/2024 2:02 PM MEXICAN FOOD MACHINE TENDER Result Saul Sesay MD LAB BLOOD ORDERABLES Final Resu lt Performing Organization Address [facility] [[email or web address]] Co de Phone Number [facility] [email or web address] [address] * Renal function panel (10/11/2024 1:55 PM MEXICAN FOOD MACHINE TENDER) Sodium 142 135 - 145 mmol/L Potassium, pl 4.2 3.3 - 4.9 mmol/L [facility] Chloride 105 97 - 110 mmol/L [facility] CO2 32 22 - 32 mmol/L [facility] Anion gap 5 2 - 15 mmol/L [facility] BUN 15 6 - 25 mg/dL [facility] Creatinine 0.79 0.60 - 1.10 mg/dL [facility] Glucose 94 70 - 199 mg/dL [facility] Comment: Interpretive Data Fasting glucose >/= 126 [...] 2022. Calcium 9.2 8.5 - 10.3 mg/dL [facility] Phosphorus, pl 3.1 2.3 - 4.5 mg/dL [facility] Albumin 4.1 3.5 - 5.0 g/dL [facility] Blood 10/11/2024 1:55 PM MEXICAN FOOD MACHINE TENDER 10/11/2024 2:02 PM MEXICAN FOOD MACHINE TENDER us Sai Sesay MD LAB BLOOD ORDERABLES Final Resu lt [facility] [place] [address] * US Head Neck Soft Tissue (10/08/2024 11:11 AM MEXICAN FOOD MACHINE TENDER) Anatomical Region Laterality Modality Head and Neck N/A Ultrasound 10/08/2024 12:1 1 PM MEXICAN FOOD MACHINE TENDER Impressions 10/08/2024 1:16 PM MEXICAN FOOD MACHINE TENDER 1. Postoperative changes of left hemithyroidectomy without evidence of tumor recurrence. 2. No suspicious adenopathy. 3. No suspicious right thyroid nodules. Dictated by: Mary Rayo M.D. The radiology attending physician has personally reviewed this study, and had reviewed and/or edited this written report and agrees with it. Electronically signed by: Chio Suresh M.D. Narrative 10/08/2024 1:16 PM MEXICAN FOOD MACHINE TENDER EXAMINATION: ??THYROID SONOGRAM HISTORY: 79-year-old woman with [...] by: Chio Suresh M.D. Raghav Burkett MD IMG US PROCEDURES Final Resu lt * Dexa Axial Skeleton Bone Density 1 or 2 Site (08/27/2024 10:19 AM CDT) Anatomical Region Laterality Modality Body N/A Radiographic Patricia ging Historical Provider IMErin DXA PROCEDURES Final Result * Screening Mammogram [...] compared to prior imaging studies performed at [facility] on 02/26/2021, 03/04/2022 and 03/10/2023. The breasts [...] compared to prior imaging studies performed at [facility] on 02/26/2021, 03/04/2022 and 03/10/2023. The breasts [...] Most Recently Relevant to Health Maintenance Insurance [facility] COMMERCIAL GENERIC MEDICARE [facility] Advance Directives For more information, please contact: [phone] Documents on File Type Date Recorded Patient Cable Tester Expl anation ADVANCE DIRECTIVE 01/08/2024 1:08 PM * Full Code (Latest Code Status on File) Date Activated Date Inactivated Comments 04/21/2024 1:01 PM 04/22/2024 2:24 PM * Full Code Date Activated Date Inactivated Comments 12/31/2023 12:25 AM 12/31/2023 6:11 PM Care Teams Aircraft Power Plant Assembler Relationship Specialty Start Date End Date Delmy Carrero DO [address] [place] [address] PCP - General Family Medicine 01/11/21 Aft, Amee Bustos MD PhD [address] [facility] [place] [address] Surgeon Surgical Oncology 03/29/20 Keren Watts MD [address] [place] [address] Radiation Oncologist Radiation Oncology 03/29/20 Dima Grant DO [address] [place] [address] Medical Oncologist/Shipfitter Helper Hematology and Oncology 03/29/20 Sai Sesay MD [address] [address] Consulting Physician Endocrinology Diabetes & Metabolism 05/04/24
--- OUTSIDE RECORDS SUMMARY | 2024-12-02 05:37 | XMS_ITS | Encounter Summary ---
Author Organization [facility] Address [address] [place] [address] Phone Care Team Providers Care Business Controller Name Role Phone Delmy Carrero DO Primary Care Provider [phone] Amee Hermosillo MD PhD Unavailable [phone] Keren Watts MD Unavailable Dima Grant DO Unavailable [phone] Chloe Sebastian MEDICAL CASE MANAGER Primary Care Provider + Delmy Carrero DO Primary Care Provider [phone] Sai Sesay MD Unavailable [phone] Encounter Details Date Type Department Care Team (Late st Contact Info) Description 05/10/2020 Telephone [facility] Oncology [address] [place] [address] [place] [phone] Aneta Ruth, RN Social History Tobacco Use Types Packs/Day [...] on file Legal Sex Female 9:36 AM FILM PROCESSING SHIFT SUPERVISOR Gender Identity Not on file Sexual Orientation Not on file 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 Start 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 Job End Date 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 on file Not on file Not on file documented as of this encounter Plan of Treatment Not on file documented as of this encounter Visit Diagnoses Not on filedocumented in this encounter Care Teams Business Controller Relationship Specialty Start Date End Date Delmy Carrero DO PCP - General Family Medicine 01/14/20 11/08/20 Chloe Sebastian NP [address] [address] PCP - General 11/09/20 01/10/21 Delmy Carrero DO PCP - General Family Medicine 01/11/21 Aft, Amee Bustos MD PhD [address] [place] [address] Surgeon Surgical Oncology 03/29/20 Keren Watts MD [address] [address] Radiation Oncologist Radiation Oncology 03/29/20 Dima Grant DO [address] [facility] [address] [place] [address] Medical Oncologist/Weigh And Charge Worker Hematology and Oncology 03/29/20 [place] [address] [place] [address] Consulting Physician Endocrinology Diabetes & Metabolism 05/04/24 documented as of this encounter
--- OUTSIDE RECORDS SUMMARY | 2024-12-02 05:37 | XMS_ITS | Clinical Summary ---
Author Organization [facility] Address [address] Bella: Epic Prelude ADT [place] [address] Care Team Providers Care Lifts And Cranes Inspector Name Role Phone Unavailable Primary Care Provider Unavailabl e Allergies Active Allergy Reactions Criticality Noted Date Comments Sulfa (Sulfonamide Antibiotics) Nausea and Vomiting,Headache Low 06/10/2017 Medications atenoloL (TENORMIN) 25 mg tablet Take 1 Tablet (25 mg) by mouth 2 times daily. 60 Tablet 0 09/08/2020 Active hydrocortisone (PROCTOZONE-HC) 2.5 % cream with perineal applicatorIndica tions:Grade I hemorrhoids Insert by rectum 2 times daily as needed for Hemorrhoids . 30 Gram 0 07/28/2019 Active Active Problems Problem Noted Date Diagnosed Date Anxiety 06/10/2017 Arthritis of knee 06/10/2017 Hypertension 06/10/2017 Osteopenia 06/10/2017 Vertigo 06/10/2017 Immunizations Immunization Administration Dates Next Due (ADACEL/BOOSTRIX)(10 YR UP) TDAP VACCINE, 0.5ML, IM 03/07/2017 INFLUENZA VACCINE QUADRIVALENT 6 MOS UP PF IM Influenza Vaccine High Dose 65+ Yrs IM 8 PNEUMOVAX (PPSV23) pneumococ jose alejandro polysaccharide 23-valent Vaccine 10/07/2013 Social History Tobacco Use Types Packs/Day Years Used Date Smoking Tobacco: Never Assessed Comments Unknown Sex and Gender Information Value Date Recorded Sex Assigned at Not on file Legal Sex Female 4:30 AM ADMITTING OFFICER Gender Identity Not on file Sexual Orientation Not on file Last Filed Vital Signs Vital Sign Reading Time Taken Comments Blood Pressure 120/80 07/28/2019 8:33 AM CDT Pulse 68 07/28/2019 8:33 AM CDT Temperature 37 ??C (98.6 ??F) 01/21/2019 3:52 PM CDT Respiratory Rate 18 07/28/2019 8:33 AM CDT Oxygen Saturation - - Inhaled Oxygen Concentration - - Weight 76.7 kg (169 lb) 07/28/2019 8:33 AM CDT Height 162.6 cm (5' 4 ) 07/28/2019 8:33 AM CDT Body Mass Index 29.01 07/28/2019 8:33 AM CDT Plan of Treatment Health Maintenance Due Date Last Done Comments ZOSTER VACCINE (1 of 2) 1996 PNEUMOCOCCAL VACCINE 65+ YEA RS (2 of 2 - PCV) 10/07/2014 10/07/2013 RSV VACCINE (60+ or ) (1 - 1-dose 75+ series) 2021 INFLUENZA VACCINE (#1) 2024 07/28/2019, 2017 DTAP/TDAP/TD VACCINES (2 - T d or Tdap) 03/07/2027 03/07/2017 COLORECTAL SCREENING Discontinued 10/27/2017, 10/27/2017, 10/27/2017, Additional history exists Colorectal Cancer Screening Discontinued OSTEOPOROSIS SCREENING Completed 0, 06/07/2016, 06/07/2016 FIT-DNA Q 3 years Discontinued FIT/FOBT Q 1 year Discontinued Flex Sig/CT Colonography Q 5 years Discontinued Procedures Procedure Name Priority Date/Time Associated Diagnosis Comments ENDOSCOPY, COLON, SCREENING 10/27/2017 12:00 AM ADMITTING OFFICER XR DEXA BONE DENSITY AXIAL 1 OR MORE SITES 06/07/2016 12:00 AM CDT from Last 3 Months or Most Recently Relevant to Health Maintenance Results * ENDOSCOPY, COLON, SCREENING (10/27/2017 12:00 AM ADMITTING OFFICER) us Abstract Aok Provider GI PROCEDURE ORDERABLES Ed ited Result - Final * XR DEXA BONE DENSITY AXIAL 1 OR MORE SITES (06/07/2016 12:00 AM CDT) Anatomical Region Laterality Modality Other us Abstract Aok Provider DIAGNOSTIC IMAGING ORDERAB LES Edited Result - Final from Last 3 Months or Most Recently Relevant to Health Maintenance
--- OUTSIDE RECORDS SUMMARY | 2024-12-02 05:37 | XMS_ITS | Encounter Summary ---
Author Organization [facility] Address [address] [place] [address] Care Team Providers Care Network Operations Analyst Name Role Phone AftAmee MD PhD Unavailable Keren Watts MD Unavailable Dima Grant DO Unavailable [phone] Delmy Carrero DO Primary Care Provider [phone] Sai Sesay MD Unavailable [phone] Encounter Details Date Type Department Care Team (Late st Contact Info) Description 09/22/2024 Telephone [facility] Radiation Oncology [address] [facility] [place] [address] Gena Villa NP [address] [facility] [address] [place] [address] Social History Tobacco Use Types Packs/Day Years Used Date Smoking Tobacco: Former Cigarettes 1 18 1 963 - 1980 Passive Smoke Exposure: Never Smokeless Tobacco: Never Alcohol Use Standard Drinks/Week Comments Yes 6 (1 standard drink = 0.6 oz pur e alcohol) [facility] Utilities Answer Date Recorded In the past 12 months has th e electric, gas, oil, or water company threatened to shut off services in your [...] How often do you attend chur or congregational services? More than 4 times per year 12/31/2023 Do you belong to any clubs o r organizations such as bahai groups, unions, fraternal or athletic groups, or [...] and heating? 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 Not on file Not on file Not on file documented as of this encounter Plan of Treatment Not on file documented as of this encounter Visit Diagnoses Not on filedocumented in this encounter Care Teams Network Operations Analyst Relationship Specialty Start Date End Date Delmy Carrero DO [address] [facility] [address] [place] [address] PCP - General Family Medicine 01/11/21 Aft, Amee Bustos MD PhD [address] [place] [address] Surgeon Surgical Oncology 03/29/20 Keren Watts MD [address] [place] [address] Radiation Oncologist Radiation Oncology 03/29/20 Dima Grant DO [address] [place] [address] Medical Oncologist/Construction Lineman Hematology and Oncology 03/29/20 Sai Sesay MD [address] [address] Consulting Physician Endocrinology Diabetes & Metabolism 05/04/24 documented as of this encounter
--- OUTSIDE RECORDS SUMMARY | 2024-12-02 05:37 | XMS_ITS | Continuity of Care Document ---
Author Organization [facility] Address [address] [place] [address] [place] [address] Phone Care Team Providers Care Sales And Merchandising Associate Name Role Phone Fred Corley MD Unavailable Unavailable Allergies, Adverse Reactions, Alerts Substance Reaction Status Criticality Sulfa (Sulfonamide Antibiotics) Active No Information Medications Medication Instructions Dosage Effective Dates (start - stop) Status Comments PreserVision AREDS 4,296 mcg-226 mg-90 mg capsule take 1 capsule by oral route 2 times every day 1 capsule - Active alendronate 35 mg tablet take 1 tablet by oral route every week in the morning, at least 30 min before first food, beverage, or medication of day 35 MG - Active Calcium 600 + D(3) 600 mg calcium-200 unit capsule take 1 by oral route every day 1 - Active letrozole 2.5 mg tablet take 1 tablet by oral route every day 2.5 MG - Active lisinopril 5 mg tablet take 1 tablet by oral route every day 5 MG - Active Procedures Procedure Date Refraction [...] Diagnoses Date Provider Providers Copied on Encounter [facility], [address], [place], [place], [id number], [place] tel:[phone] SEC [place] Professional Complete Exam (chief complaint) Presence of intraocular lensFamily history of macular degenerationDr usen (degenerative) of macula, bilateralOptic cupping of both eyesDry eye syndrome of bilateral lacrimal glands 3 Barney Ibarra. [address], [address], [place], [place], [id number], [place]. tel:[phone] Dima Grant MD.Referri ng Provider: Fred Guillory, [address], [place], [address] . tel:[phone] [facility], [address] [place] [address] [address], [place], [place], [id number], [place] tel:[phone] SEC [place] Professional Complete Exam (chief complaint) Dry eye syndrome of bilateral lacrimal glandsFamily history of macular degenerationOp tic cupping of both eyesPresence of intraocular lens 2 Barney Ibarra. [address], [place], [place], [id number], [place]. tel:[phone] Dima Grant MD.Referri ng Provider: Fred Guillory, [address], [place], [address] . tel:[phone] [facility], [address] [place] [address] [address], [place], [place], [id number], [place] tel:[phone] [place] Professional Complete Exam (chief complaint) Family history of macular degenerationPr esence of intraocular lensDry eye syndrome of bilateral lacrimal glandsOptic cupping of both eyes 1 Barney Ibarra. [address], [place], [place], [id number], [place]. tel:[phone] Dima Grant MD.Referri ng Provider: Fred Guillory, [address], [place], [address] . tel:[phone] [facility], [address], [place], [place], [id number], [place] tel:[phone] SEC Keanu Thompson No Information 1 Barney Ibarra. [address] [facility], [place], [place], [address], [place]. tel:[phone] Specialist : Dima Grant MD, [address] [facility] [address], [place], [address]. tel:[phone] Family History Family Member Type Diagnosis Age At Onset Problem Family history of degenerati ve disorder of macula Problem Family history of Diabetes [place] davis Payers Payer name Insurance type Covered libertarian ID [place] lackey(s) [place] [id number] [facility] [id number] Social History Type Description Quantity Date Captured [...] and left eye. Patient states eyes maybe yolk spray drier than before. Patient states she finds it [...] and left eye. Patient states eyes maybe yolk spray drier than before. Patient states she finds it [...]
--- OUTSIDE RECORDS SUMMARY | 2024-12-02 05:37 | XMS_ITS | Clinical Summary ---
Author Organization [address] Address [address] [place] [address] Care Team Providers Care Systems Design Engineer Name Role Phone Unavailable Primary Care Provider Unavailabl e Allergies Active Allergy Reactions Criticality Noted Date Comments Sulfa (Sulfonamide Antibiotics) Nausea and Vomiting,Headache Low 06/10/2017 Medications fluticasone (FLONASE) 50 mcg/spray [place], SuspensionIndica tions:Chronic rhinitis, unspecified type Administer 2 Sprays in each nostril daily. 16 Gram 5 8 Active hydrocortisone (ANUSOL-HC) 2.5 % cream with perineal applicatorIndica tions:Grade I hemorrhoids Insert by rectum 2 times daily as needed for Hemorrhoids. 30 Gram 9 Active atenoloL (TENORMIN) 25 mg tablet Take 1 Tablet (25 mg) by mouth 2 times daily. 60 Tablet 0 Active Active Problems Problem Noted Date Diagnosed Date Anxiety 06/10/2017 Arthritis of knee 06/10/2017 Hypertension 06/10/2017 Osteopenia 06/10/2017 Vertigo 06/10/2017 Resolved Problems Problem Noted Date Diagnosed Date Resolved Date Osteoporosis 06/10/2017 05/04/2018 Immunizations Immunization Administration Dates Next Due (ADACEL/BOOSTRIX)(10 YR UP) TDAP VACCINE, 0.5ML, IM 03/07/2017 INFLUENZA VACCINE QUADRIVALENT 6 MOS UP PF IM Influenza Vaccine High Dose 65+ Yrs IM 8 PNEUMOVAX (PPSV23) pneumococ jose alejandro polysaccharide 23-valent Vaccine 10/07/2013 Family History Medical History Relation Name Comments Heart Disease Father CHF Colon Cancer Mother Other Mother pneumonia Relation Name Status Comments Father Mother Social History Tobacco Use Types Packs/Day Years Used Date Smoking Tobacco: Former Cigarettes Q uit: 07/15/1981 Smokeless Tobacco: Never Alcohol Use Standard Drinks/Week Comments Yes 0 (1 standard drink = 0.6 oz pur e alcohol) rarely Comments No Sex and Gender Information Value Date Recorded Sex Assigned at Not on file Legal Sex Female 5:37 PM CDT Gender Identity Not on file Sexual Orientation Not on file Last Filed Vital Signs Vital Sign Reading Time Taken Comments Blood Pressure 120/80 07/28/2019 8:33 AM CDT Pulse 68 07/28/2019 8:33 AM CDT Temperature 37 ??C (98.6 ??F) 01/21/2019 3:52 PM CDT Respiratory Rate 18 07/28/2019 8:33 AM CDT Oxygen Saturation 98% 07/28/2019 8:33 AM CDT Inhaled Oxygen Concentration - - Weight 76.7 kg (169 lb) 07/28/2019 8:33 AM CDT Height 162.6 cm (5' 4 ) 07/28/2019 8:33 AM CDT Body Mass Index 29.01 07/28/2019 8:33 AM CDT Plan of Treatment Health Maintenance Due Date Last Done Comments ZOSTER VACCINE (1 of 2) 1996 RSV VACCINE (60+ or ) (1 - 1-dose 75+ series) 2021 INFLUENZA VACCINE (#1) 2024 9, 07/29/2018, 09/04/2017 DTAP/TDAP/TD VACCINES (2 - T d or Tdap) 03/07/2027 03/07/2017 OSTEOPOROSIS SCREENING Completed 06/07/2016 PNEUMOCOCCAL VACCINE 65+ YEARS Completed 09/04/2017 , 10/07/2013 COLORECTAL SCREENING Discontinued 10/27/2017, 10/14/20 12 Colorectal Cancer Screening Discontinued FIT-DNA Q 3 years Discontinued FIT/FOBT Q 1 year Discontinued Flex Sig/CT Colonography Q 5 years Discontinued Procedures Procedure Name Priority Date/Time Associated Diagnosis Comments ENDOSCOPY, COLON, SCREENING Routine 10/27/2017 XR DEXA BONE DENSITY AXIAL 1 OR MORE SITES Routine 06/07/2016 from Last 3 Months or Most Recently Relevant to Health Maintenance Results * (ABNORMAL) ENDOSCOPY, COLON, SCREENING (10/27/2017) us Abstract Aok Provider GI PROCEDURE ORDERABLES Ed ited Result - Final TEREZA BERNARD# [id number] [address] [place] [id number] * (ABNORMAL) XR DEXA BONE DENSITY AXIAL 1 OR MORE SITES (06/07/2016) Anatomical Region Laterality Modality Other us Abstract Aok Provider DIAGNOSTIC IMAGING ORDERAB LES Edited Result - Final from Last 3 Months or Most Recently Relevant to Health Maintenance Insurance MEDICARE PART A AND B [facility] CHOICE
== END 2024-11-26 08:32 | disposition home or self-care (01) ==
LOC: ANHGOSHLAB 08:33
PROVIDERS: PCP Family Medicine; Visit Provider Nurse Practitioner
DX: R30.0 Dysuria (principal); I10 Essential (primary) hypertension; E78.5 Hyperlipidemia, unspecified; C73 Malignant neoplasm of thyroid gland; E55.9 Vitamin D deficiency, unspecified
CPT/HCPCS: 36415; 80053; 80061; 81001; 82306; 84443; 85027; 87086; 87186

== ENCOUNTER 2025-03-24 08:04 | Outpatient (CLI) | payer MEDICARE, SELFPAY ==
--- OUTSIDE RECORDS SUMMARY | 2025-03-24 08:10 | XMS_ITS | Referral Summary ---
Author Organization [facility] Address [address] [place] [id number] Care Team Providers Care Steel Post Installer Name Role Phone Aft, Amee Bustos MD PhD Unavailable Keren Watts MD Unavailable Dima Grant DO Unavailable Delmy Carrero DO Primary Care Provider [phone] Sai Sesay MD Unavailable [phone] Encounters Date Type Department Care Team Description 03/18/2025 Results Follow-Up [facility] Surgery [address] [place] [phone] Yeimy Mcdaniel NP 03/16/2025 10:45 AM CDT - 03/16/2025 11:59 PM CDT Hospital Encounter [facility] - Breast Imaging [address] [place] [phone] History of breast cancer; Encounter for screening mammogram for malignant neoplasm of breast Discharge Disposition: Discharge to home or self care 03/16/2025 10:30 AM CDT Office Visit [facility] Surgery [address] [place] [phone] Yeimy Mcdaniel NP Malignant neoplasm of lower-outer quadrant of left breast of female, estrogen receptor positive (HCC) (Primary Dx); History of breast cancer; Extremely dense tissue of both breasts on mammography; Encounter for screening mammogram for malignant neoplasm of breast 03/10/2025 Orders Only [facility] Neurosurgery [address], [address] [place] [address] Maribell Puentes NP 03/10/2025 Telephone [facility] Neurosurgery [address], [address] [place] [address] Maribell Puentes NP 03/10/2025 9:00 AM CDT Office Visit [facility] Neurosurgery [address], [address] [place] [phone] Maribell Puentes, ANGELO Meningioma (HCC) (Primary Dx) 02/23/2025 7:47 AM CDT - 02/23/2025 11:59 PM CDT Hospital Encounter [facility] [address] [place] [address] Brain lesion Discharge Disposition: Discharge to home or self care 02/16/2025 2:00 PM CDT Lab [facility] [place] at [address] [phone] Malignant neoplasm of lower-outer quadrant of left breast of female, estrogen receptor positive (HCC) 02/16/2025 2:30 PM CDT Infusion [facility] [address] [phone] Osteoporosis without current pathological fracture, unspecified osteoporosis type (Primary Dx); Malignant neoplasm of lower-outer quadrant of left breast of female, estrogen receptor positive (HCC) 02/04/2025 Telephone [facility] [address] [place] [address] [address] [place] [address] Joi George RN 01/17/2025 Telephone [facility] Scheduling [facility] [place] [address] Bernice Langley from Last 3 Months Allergies Active Allergy Reactions Criticality Noted Date Comments Nitrofurantoin Monohyd/M-Cryst Diarrhea,Fatigue Low 06/20/2023 Sulfa (Sulfonamide Antibiotics) Headache,Nausea And Vomiting Low 06/10/2017 Medications fluticasone propionate (FLONASE) 50 mcg/actuation nasal sprayIndication s:Allergic Rhinitis Administer 2 sprays into affected nostril(s) as needed for rhinitis or allergies 02/05/20 18 Active hydrocortisone 2.5 % creamIndication s:hemorrhoids Insert 1 Application into the rectum 2 (two) times a day as needed for irritation 07/28/20 19 Active lisinopriL (PRINIVIL,ZESTR IL) 20 mg tabletIndicatio ns:hypertension Take 1 tablet (20 mg total) by mouth 2 (two) times a day Active vit C,J-Pm-edvzb-fariha tein-zeaxan (PreserVision AREDS-2) 250-90-40-1 mg capsuleIndicati ons:supplement Take 1 capsule by mouth 2 (two) times a day 02/19/20 22 Active sertraline (ZOLOFT) 25 mg tabletIndicatio ns:Generalized Anxiety Disorder Take 1 tablet (25 mg total) by mouth every morning 02/04/20 24 Active levothyroxine (SYNTHROID) 50 mcg tablet Take 1 tablet (50 mcg total) by mouth daily 30 tablet 11 07/21/20 24 025 Active acetaminophen (TYLENOL) 500 mg tablet Take 2 tablets (1,000 mg total) by mouth every 6 (six) hours as needed for pain 60 tablet 07/22/20 24 Active ibuprofen (ADVIL,MOTRIN) 600 mg tablet Take 1 tablet (600 mg total) by mouth every 6 (six) hours as needed for pain 30 tablet 07/22/20 24 Active denosumab (PROLIA) 60 mg/mL syringe Inject under the skin once Active ferrous sulfate 325 mg (65 mg of elemental iron) tablet TAKE 1 TABLET BY MOUTH EVERY DAY WITH BREAKFAST 90 tablet 1 12/13/19 25 Active letrozole (FEMARA) 2.5 mg tabletIndicatio ns:Malignant neoplasm of lower-outer quadrant of left breast of female, estrogen receptor positive (HCC),Malignant neoplasm of lower-outer quadrant of left female breast, unspecified estrogen receptor status (HCC) TAKE 1 TABLET BY MOUTH EVERY DAY 90 tablet 1 02/05/20 25 Active calcium carbonate-vitam in D3 500 mg(1,250mg) -400 unit chewable tabletIndicatio ns:Hypocalcemia Prevention,Prev ention of Vitamin D Deficiency,has osteoprnia Take 1 tablet by mouth 2 (two) times a day 025 Discontinued triamcinolone (KENALOG) 0.1 % creamIndication s:bug bites Apply topically as needed 04/07/20 24 025 Discontinued acetaminophen (TYLENOL) 500 mg tablet Take 2 tablets (1,000 mg total) by mouth every 6 (six) hours as needed for pain 04/21/20 025 Discontinued ibuprofen 200 mg tab/cap Take 2 tablet/capsule (400 mg total) by mouth every 6 (six) hours as needed for pain 025 Discontinued docusate sodium (COLACE) 100 mg capsuleIndicati ons:constipatio n Take 1 capsule (100 mg total) by mouth 2 (two) times a day 60 capsule 07/22/20 025 Discontinued apixaban (ELIQUIS) 5 mg tablet Take 0.5 tablets (2.5 mg total) by mouth 2 (two) times a day for 28 days 28 tablet 07/22/20 025 Discontinued Active Problems Problem Noted Date Diagnosed Date 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 Will check thyroid function test and adjust levothyroxine dose accordingly. 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 Akhtar. PET showed no metastases. Low risk, no BAZZI given Follow up neck LIZETH Thyroid cancer 04/06/2024 Thyroid nodule 03/16/2024 Cystocele, midline 02/25/2024 Nasal obstruction 01/08/2024 Facial pain 01/08/2024 Closed fracture of nasal bones 01/06/2024 Fall, initial encounter 12/30/2023 Osteoporosis without current pathological fractu re 04/10/2022 Assessment & Plan (10/11/2024 1:34 PM PUBLIC HEALTH EPIDEMIOLOGIST): On Prolia History of breast cancer 09/05/2021 Feeling of incomplete bladder emptying Assessment & Plan (01/13/2021 1:58 PM PUBLIC HEALTH EPIDEMIOLOGIST): -PVR 30 PLAN: -Rock back and forth and squeeze pelvic muscles at end of voiding. Urge incontinence 01/13/2021 Assessment & Plan (01/13/2021 2:07 PM PUBLIC HEALTH EPIDEMIOLOGIST): -Avoid caffeine and large amounts of fluid [...] 01/13/2021 Assessment & Plan (01/13/2021 2:08 PM PUBLIC HEALTH EPIDEMIOLOGIST): -Refer to handout on bladder irritants and try to avoid. 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, estrogen receptor positive 01/24/2020 Cancer Staging:Pathologic stage from 02/22/2020:Stage IA(pT1b, pN0(sn), cM0, G3, ER+, VT-, HER2-) - Signed by Keren Watts MD on 03/29/2020 Clinical stage from 03/17/2020:Stage IB(cT1b, cN0(sn), cM0, G3, ER+, VT-, HER2-) - Signed by Dima Grant DO on 03/19/2020 Immunizations Immunization Administration Dates Next Due INFLUENZA [id number] 07/29/2018 Influenza, Quadrivalent, Hig h Dose, Preservative [...] drink = 0.6 oz pur e alcohol) [facility] [employer] Answer Date Recorded In the past 12 months has e [employer], gas, oil, or water [employer] threatened to shut off services in your [...] often do you attend chur ch or zoroastrian services? More than 4 times per year 12/31/2023 Do you belong to any clubs o r organizations such as samaritan groups, unions, fraternal or athletic groups, or [...] and heating? 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 file Not on file Not on file Last Filed Vital Signs Vital Sign Reading Time Taken Comments Blood Pressure 143/80 03/10/2025 9:00 AM CDT Pulse 63 03/10/2025 9:00 AM CDT Temperature 36.6 C (97.8 F) 03/10/2025 9:00 AM CDT Respiratory Rate 17 03/10/2025 9:00 AM CDT Oxygen Saturation 100% 03/10/2025 9:00 AM CDT Inhaled Oxygen Concentration - - Weight 67.1 kg (148 lb) 03/16/2025 10:39 AM CDT Height 160 cm (5' 3 ) 03/16/2025 10:39 AM CDT Body Mass Index 26.22 03/16/2025 10:39 AM CDT Plan of Treatment Not on file Procedures Procedure Name Priority Date/Time Associated Diagnosis Comments SCREENING MAMMOGRAM BILATERAL W RD Schedule Routine, Read Routine (OP Routine) 03/16/2025 11:31 AM CDT History of breast cancer Encounter for screening mammogram for malignant neoplasm of breast MRI BRAIN TUMOR W WO CONTRAST Schedule Routine, Read Routine (OP Routine) 02/23/2025 9:06 AM CDT Brain lesion EGFR Routine 02/16/2025 1:58 PM CDT Malignant neoplasm of lower-outer quadrant of left breast of female, estrogen receptor positive (HCC) PHOSPHORUS Routine 02/16/2025 1:58 PM CDT Malignant neoplasm of lower-outer quadrant of left breast of female, estrogen receptor positive (HCC) COMPREHENSIVE METABOLIC PANEL Routine 02/16/2025 1:58 PM CDT Malignant neoplasm of lower-outer quadrant of left breast of female, estrogen receptor positive (HCC) DEXA AXIAL SKELETON BONE DENSITY 1 OR MORE SITES Schedule Routine, Read Routine (OP Routine) 08/27/2024 10:19 AM CDT from Last 3 Months or Most Recently Relevant to Health Maintenance Results * Screening Mammogram Bilateral W Rd (03/16/2025 11:31 AM CDT) Anatomical Region Laterality Modality Breast Bilateral Mammography Narrative 03/17/2025 1:56 PM CDT Mammogram Technique: Bilateral Digital Breast Tomosynthesis, Bilateral C-view 2D Screening mammogram. Views obtained: bilateral craniocaudal and bilateral mediolateral oblique. Computer Aided Detection was performed. Mammogram Findings: The present examination has been compared to prior imaging studies performed at [facility] on 10/21/2024, and at [facility] on 03/10/2023 and 03/12/2024. There are scattered areas of fibroglandular density. There is no suspicious abnormality in either breast. Impression: There is no mammographic evidence of malignancy. Annual screening mammography is recommended. OVERALL FINAL ASSESSMENT: BI-RADS CATEGORY 1: Negative. Procedure Note Soheila Peralta MD - 03/17/2025 Mammogram Technique: Bilateral Digital Breast Tomosynthesis, Bilateral C-view 2D Screening mammogram. Views obtained: bilateral craniocaudal and bilateral mediolateral oblique. Computer Aided Detection was performed. Mammogram Findings: The present examination has been compared to prior imaging studies performed at [facility] on 10/21/2024, andat [facility] on 03/10/2023 and 03/12/2024. There are scattered areas of fibroglandular density. There is no suspicious abnormality in either breast. Impression: There is no mammographic evidence of malignancy. Annual screening mammography is recommended. OVERALL FINAL ASSESSMENT: BI-RADS CATEGORY 1: Negative. Yeimy Mcdaniel NP IMG MAMMO PROCEDURES Final Result * MRI Brain Tumor W WO Contrast (02/23/2025 9:06 AM CDT) Anatomical Region Laterality Modality Head and Neck N/A Magnetic Resonan ce 02/23/2025 9:50 AM CDT Impressions 02/23/2025 10:42 AM CDT 1. Redemonstration of a 1.3 cm extra-axial mass along the medial right parietal convexity abutting the superior sagittal sinus, most consistent with a meningioma. Normal flow void within the adjacent superior sagittal sinus. Electronically signed by: Richi Garcia M.D. Narrative 02/23/2025 10:42 AM CDT EXAMINATION: Magnetic resonance imaging (MRI) of the brain and brainstem without and with contrast HISTORY: Meningioma. TECHNIQUE: Multiplanar multi-weighted MRI of the brain and brainstem was performed without and with intravenous contrast using the brain tumor protocol. This included high-resolution 3D T1-weighted images without and with intravenous contrast and dynamic susceptibility contrast data for perfusion analysis. Contrast information: 12 mL Gadoterate Meglumine IV COMPARISON: Brain MRI dated 02/21/2024 FINDINGS: There is an extra-axial enhancing lesion over the posterior medial parietal convexity abutting the superior sagittal sinus, measuring 1.3 x 1.0 x 0.7 cm, unchanged in size and configuration from the prior study. Areas of susceptibility within this lesion corresponds to calcifications seen on CT dated 02/10/2024. Normal flow void is noted within the superior sagittal sinus abutting the lesion. There are scattered periventricular and deep white matter T2/FLAIR hyperintense foci, nonspecific, which may be associated with chronic small vessel ischemic disease. The corpus callosum is normal in shape and signal intensity. The posterior fossa is unremarkable. The pituitary and sella are normal. The brainstem and craniocervical junction are unremarkable. Diffusion weighted images reveal no hyperintensities to suggest acute cerebral infarction. The ventricles are normal in size and position without evidence of hydrocephalus. Mucosal thickening is seen within the left maxillary sinus. Mild bilateral mastoid effusions are present. Bilateral lens replacements. Normal flow voids are demonstrated in the carotid arteries and basilar artery. Procedure Note Richi Garcia MD - 02/23/2025 EXAMINATION: Magnetic resonance imaging (MRI) of the brain and brainstem without and with contrast HISTORY: Meningioma. TECHNIQUE: Multiplanar multi-weighted MRI of the brain and brainstem was performed without and with intravenous contrast using the brain tumor protocol. This included high-resolution 3D T1-weighted images without and with intravenous contrast and dynamic susceptibility contrast data for perfusion analysis. Contrast information: 12 mL Gadoterate Meglumine IV COMPARISON: Brain MRI dated 02/21/2024 FINDINGS: There is an extra-axial enhancing lesion over the posterior medial parietal convexity abutting the superior sagittal sinus, measuring 1.3 x 1.0 x 0.7 cm, unchanged in size and configuration from the prior study. Areas of susceptibility within this lesion corresponds to calcifications seen on CT dated 02/10/2024. Normal flow void is noted within the superior sagittal sinus abutting the lesion. There are scattered periventricular and deep white matter T2/FLAIR hyperintense foci, nonspecific, which may be associated with chronic small vessel ischemic disease. The corpus callosum is normal in shape and signal intensity. The posterior fossa is unremarkable. The pituitary and sella are normal. The brainstem and craniocervical junction are unremarkable. Diffusion weighted images reveal no hyperintensities to suggest acute cerebral infarction. The ventricles are normal in size and position without evidence of hydrocephalus. Mucosal thickening is seen within the left maxillary sinus. Mild bilateral mastoid effusions are present. Bilateral lens replacements. Normal flow voids are demonstrated in the carotid arteries and basilar artery. IMPRESSION: 1. Redemonstration of a 1.3 cm extra-axial mass along the medial right parietal convexity abutting the superior sagittal sinus, most consistent with a meningioma. Normal flow void within the adjacent superior sagittal sinus. Electronically signed by: Richi Garcia M.D. [facility] Pu[facility] NP [facility] MRI PROCEDURES Final Resul t * eGFR (02/16/2025 1:58 PM CDT) eGFR 65 >=60 mL/min/1. 73 m2 Comment: Interpretive Data Reference Interval Normal >/= 90 mL/min/1.73m2 Mildly decreased* 60 - 89 mL/min/1.73m2 Mildly to moderately decreased 45 - 59 mL/min/1.73m2 Moderately to severely decreased 30 - 44 mL/min/1.73m2 Severely decreased 15 - 29 mL/min/1.73m2 Kidney Failure < 15 mL/min/1.73m2 *Relative to young adult level Estimated glomerular [...] Current interpretive data was last reviewed 2021. Testing performed by: [address] [address] Blood 02/16/2025 1:58 PM CDT 02/16/2025 2:02 PM CDT Dima Grant DO LAB BLOOD ORDERABLES Final R esult Performing Organization Address [facility] Co de Phone Number [address] [employer] [place], [place] [id number] * Phosphorus (02/16/2025 1:58 PM CDT) Phosphorus, pl 3.5 2.3 - 4.5 mg/dL Comment:Testing performed by : [address] [address] Blood 02/16/2025 1:58 PM CDT 02/16/2025 2:02 PM CDT Dima Grant LAB BLOOD ORDERABLES Final R esult Performing Organization Address [facility] Co de Phone Number [address] [place] [address] * (ABNORMAL) Comprehensive metabolic panel (02/16/2025 1:58 PM CDT) Sodium 137 135 - 145 mmol/L Comment:Testing performed by : [address] [address] Potassium, pl 4.3 3.3 - 4.9 mmol/L M[facility]Y Comment:Testing performed by : [address] [address] Chloride 99 97 - 110 mmol/L M[facility] Comment:Testing performed by : [address], [place]., [address] CO2 27 22 - 32 mmol/L [facility] Comment:Testing performed by : [address], [place]., [address] Anion gap 11 2 - 15 mmol/L [facility] Comment:Testing performed by : [address], [place]., [address] BUN 26(H) 6 - 25 mg/dL [facility] Comment:Testing performed by : [address], [place]., [address] Creatinine 0.90 0.60 - 1.10 mg/dL [facility] Comment:Testing performed by : [address], [place]., [address] Glucose 98 70 - 199 mg/dL [facility] Comment: Interpretive Data Fasting glucose >/= 126 mg/dl is diagnostic for diabetes. Fasting is defined as no caloric intake [...] classification and Diagnosis of Diabetes Diabetes Care 202; 46: S19-S40. Current interpretive data was last revised 2022. Testing performed by: [address] [address] Calcium 9.4 8.5 - 10.3 mg/dL [facility] Comment:Testing performed by : [address] [address] Bilirubin, total 0.2 0.1 - 1.2 mg/dL [facility] Comment:Testing performed by : [address] [address] Protein, pl 6.5 6.5 - 8.5 g/dL [facility] Comment:Testing performed by : [address] [address] Albumin 4.3 3.5 - 5.0 g/dL [facility] BAR Comment:Testing performed by : [facility], [address] [place] [address]., [address] Alk phos 97 40 - 130 Units/L [facility] BAR Comment:Testing performed by : [address] [address] ALT 23 7 - 45 Units/L [facility] BAR Comment:Testing performed by : [address] [address] AST 29 10 - 45 Units/L [facility] Comment:Testing performed by : [facility], [address] [place] [address]., [address] Blood 02/16/2025 1:58 PM CDT 02/16/2025 2:02 PM CDT Dima Grant DO LAB BLOOD ORDERABLES Final R esult [facility] [address] [facility] Department [place] [address] * Dexa Axial Skeleton Bone Density 1 or 2 Site (08/27/2024 10:19 AM CDT) Anatomical Region Laterality Modality Body N/A Radiographic Patricia ging Historical Provider IMErin DXA PROCEDURES Final Result from Last 3 Months or Most Recently Relevant to Health Maintenance Insurance MEDICARE [facility] COMM[facility]CIAL [facility] MEDICARE [facility] Advance Directives For more information, please contact: [phone] Documents on File Type Date Recorded 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 ADVANCE DIRECTIVE 01/08/2024 1:08 PM * Full Code (Latest Code Status on File) Date Activated Date Inactivated Comments 04/21/2024 1:01 PM 04/22/2024 2:24 PM * Full Code Date Activated Date Inactivated Comments 12/31/2023 12:25 AM 12/31/2023 6:11 PM Care Teams Steel Post Installer Relationship Specialty Start Date End Date Delmy Carrero DO [address] [place] [id number] [place] [address] PCP - General Family Medicine 01/11/21 Aft, Amee Bustos MD PhD [address] [place] [address] Surgeon Surgical Oncology 03/29/20 Keren Watts MD [address] [facility] [address] [facility] [address] [place] [address] Radiation Oncologist Radiation Oncology 03/29/20 Dima Grant DO [address] [facility] [address] [facility] [address] [place] [address] Medical Oncologist/Arnp Hematology and Oncology 03/29/20 Sai Sesay MD [address] [address] Consulting Physician Endocrinology Diabetes & Metabolism 05/04/24
--- OUTSIDE RECORDS SUMMARY | 2025-03-24 08:10 | XMS_ITS | Encounter Summary ---
Author Organization [facility] Address [address] [place] [address] Care Team Providers Care Assistant Nurse Manager Name Role Phone AftAmee MD PhD Unavailable Keren Watts MD Unavailable Dima Grant DO Unavailable Delmy Carrero DO Primary Care Provider [phone] Sai Sesay MD Unavailable [phone] Encounter Details Date Type Department Care Team (Late st Contact Info) Description 09/22/2024 Telephone [facility] Radiation Oncology [address] [facility] Advanced Medicine [facility] [place] [address] Gena Villa NP [address] [facility] [address] [place] [address] Social History Tobacco Use Types Packs/Day Years Used Date Smoking Tobacco: Former Cigarettes 1 18 1 963 - 1980 Passive Smoke Exposure: Never Smokeless Tobacco: Never Alcohol Use Standard Drinks/Week Comments Yes 6 (1 standard drink = 0.6 oz pur e alcohol) [facility] Utilities Answer Date Recorded In the [...] How often do you attend chur or jain services? More than 4 times per year 12/31/2023 Do you belong to any clubs o r organizations such as anabaptism groups, unions, fraternal or athletic groups, or [...] and heating? 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 [address] [place] [address] PCP - General Family Medicine 01/11/21 Aft, Amee Bustos MD PhD [address] [place] [address] Surgeon Surgical Oncology 03/29/20 Keren Watts MD [address] [place] [address] Radiation Oncologist Radiation Oncology 03/29/20 Dima Grant DO [address] [place] [address] Medical Oncologist/Educational Adviser Hematology and Oncology 03/29/20 Sai Sesay MD [address] [address] Consulting Physician Endocrinology Diabetes & Metabolism 05/04/24 documented as of this encounter
--- OUTSIDE RECORDS SUMMARY | 2025-03-24 08:10 | XMS_ITS | Clinical Summary ---
Author Organization [facility] Address [address] [place] [address] Care Team Providers Care Site Leasing Agent Name Role Phone NormatAmee MD PhD Unavailable Keren Watts MD Unavailable Dima Grant DO Unavailable Delmy Carrero DO Primary Care Provider [phone] Sai Sesay MD Unavailable [phone] Allergies Active Allergy Reactions Criticality Noted [...] 2 (two) times a day Active vit C,V-Ma-phlhf-fariha tein-zeaxan (PreserVision AREDS-2) 250-90-40-1 mg capsuleIndicati ons:supplement [...] (six) hours as needed for pain 04/21/20 24 025 Discontinued ibuprofen 200 mg tab/cap Take 2 tablet/capsule (400 mg total) by mouth every 6 (six) hours as needed for pain 025 Discontinued docusate sodium (COLACE) 100 mg capsuleIndicati ons:constipatio n Take 1 capsule (100 mg total) by mouth 2 (two) times a day 60 capsule 07/22/20 24 025 Discontinued apixaban (ELIQUIS) 5 mg tablet Take 0.5 tablets (2.5 mg total) by mouth 2 (two) times a day for 28 days 28 tablet 07/22/20 24 025 Discontinued Active Problems Problem Noted Date Diagnosed Date 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 Will check thyroid function test and adjust levothyroxine dose accordingly. 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 Akhtar. PET showed no metastases. Low risk, no BAZZI given Follow up neck LIZETH Thyroid cancer 04/06/2024 Thyroid nodule 03/16/2024 Cystocele, midline 02/25/2024 Nasal obstruction 01/08/2024 Facial pain 01/08/2024 Closed fracture of nasal bones 01/06/2024 Fall, initial encounter 12/30/2023 Osteoporosis without current pathological fractu re 04/10/2022 Assessment & Plan (10/11/2024 1:34 PM POSTAL TRANSPORTATION CLERK): On Prolia History of breast cancer 09/05/2021 Feeling of incomplete bladder emptying Assessment & Plan (01/13/2021 1:58 PM POSTAL TRANSPORTATION CLERK): -PVR 30 PLAN: -Rock back and forth and squeeze pelvic muscles at end of voiding. Urge incontinence 01/13/2021 Assessment & Plan (01/13/2021 2:07 PM POSTAL TRANSPORTATION CLERK): -Avoid caffeine and large amounts of fluid [...] 01/13/2021 Assessment & Plan (01/13/2021 2:08 PM POSTAL TRANSPORTATION CLERK): -Refer to handout on bladder irritants and [...] Department Care Team Description 03/18/2025 Results Follow-Up [facility] Surgery [address] [place] [address] Floor 8 [place] [address] Yeimy Mcdaniel NP 03/16/2025 10:45 AM CDT - 03/16/2025 11:59 PM CDT Hospital Encounter [facility] - Breast Imaging [address] [place] [address] Floor 8 [place] [address] History of breast cancer; Encounter for screening mammogram for malignant neoplasm of breast Discharge Disposition: Discharge to home or self care 03/16/2025 10:30 AM CDT Office Visit [facility] Surgery [address] [place] [address] Floor 8 [place] [address] Yeimy Mcdaniel NP Malignant neoplasm of lower-outer quadrant of left breast of female, estrogen receptor positive (HCC) (Primary Dx); History of breast cancer; Extremely dense tissue of both breasts on mammography; Encounter for screening mammogram for malignant neoplasm of breast 03/10/2025 9:00 AM CDT Office Visit [facility] Neurosurgery [facility] Floor 1, [address] [place] [address] Maribell Puentes NP Meningioma (HCC) (Primary Dx) 03/10/2025 Orders Only [facility] Neurosurgery [address] [facility] Floor 1, [address] [place] [address] Maribell Puentes NP 03/10/2025 Telephone [facility] Neurosurgery [address] [facility] Floor 1, [address] [place] [address] Maribell Puentes NP 02/23/2025 7:47 AM CDT - 02/23/2025 11:59 PM CDT Hospital Encounter [facility] [address] [place] [address] Brain lesion Discharge Disposition: Discharge to home or self care 02/16/2025 2:30 PM CDT Infusion [facility] at [address] [place] [address] Osteoporosis without current pathological fracture, unspecified osteoporosis type (Primary Dx); Malignant neoplasm of lower-outer quadrant of left breast of female, estrogen receptor positive (HCC) 02/16/2025 2:00 PM CDT Lab [facility] at [address] [address] Malignant neoplasm of lower-outer quadrant of left breast of female, estrogen receptor positive (HCC) 02/04/2025 Telephone [facility] Physicians [facility] Oncology [address] [place] [address] [address] [place] [address] Joi George RN 01/17/2025 Telephone [facility] Scheduling [address] [place] [address] Bernice Langley from Last 3 Months Immunizations Immunization Administration Dates Next Due INFLUENZA [id number] 07/29/2018 Influenza, Quadrivalent, Hig h Dose, Preservative [...] of chemotherapy 2019 History of radiation therapy 2020 Family History Medical History Relation Name Comments Cancer Brother Dima Aggarwal Melanoma Brother Dima Aggarwal Snoring Brother Dima Aggarwal Heart disease Father Elmer Aggarwal Snoring Father Elmer Aggarwal Breast cancer Father's Sister Aunt - Jesica Tippie Cancer Father's Sister Aunt - Jesica Tippie Cancer Mother Mother - Marifer Jaramillo Burzi o Colon cancer Mother Mother - Marifer Costakua Burzi o Diabetes Mother Mother - Marifer Costner Burzi o Hearing loss Mother Mother - Marifer Costakua Burzi o Stroke Mother Mother - Marifer Costakua Burzi o Diabetes Paternal Grandfather None Hearing loss Paternal Grandfather None Ovarian cancer Paternal Grandmother Elayne Frost Bu rzio Anesthesia problems Neg Hx Malig Hyperthermia Neg Hx Pseudochol deficiency Neg Hx Relation Name Status Comments Brother Dima Aggarwal Alive Father Elmer Mcneillo Alive Father's Sister Aunt - Jesica Cheema [...] = 0.6 oz pur e alcohol) [facility] Utilities Answer Date Recorded In the past 12 months has e [employer], [employer], oil, or water [employer]) threatened to shut off services in your [...] any clubs o r organizations such as confucianism groups, unions, fraternal or athletic groups, or [...] and heating? 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 Not on file Not on file Not [...] 03/16/2025 10:39 AM CDT Plan of Treatment Health Maintenance Due Date Last Done Comments Depression Screening 1945 Hepatitis C Screening 1945 Hepatitis B Screening 1963 Well Visit 65+ 2011 Covid-19 Vaccine (2023-2 5 season) 2024 07/13/2021, 01/24/2021, 12/27/2020 Influenza Vaccine (Season Ended) 2025 07/13/2021, 08/25/2020, 07/28/2019, Additional history exists Fall Risk Assessment 07/22/2025 07/22/2024 Osteoporosis Screening-Bone Density Scan 08/27/2026 08/27/2024, 06/07/2016, 06/07/2016 DTaP/Tdap/Td Vaccine (2 - Td or Tdap) 03/07/2027 03/07/2017 Pneumococcal vaccine 65+ Completed 09/04/2017, 11/2 06/2013 Zoster Vaccine Completed 11/27/2019, 07/12, 08/02/2019 Breast Cancer Screening-Mammogram Discontinued 03/16/2025, 03/12/2024, 03/10/2023, Additional history exists Procedures Procedure Name Priority [...] compared to prior imaging studies performed at [facility] on 10/21/2024, and at [facility] on 03/10/2023 and 03/12/2024. There are [...] compared to prior imaging studies performed at [facility]. There are scattered [...] sinus. Electronically signed by: Richi Garcia M.D. Maribell Puentes NP IMG MRI PROCEDURES Final Resul t * eGFR [...] of Race in Diagnosing Kidney Disease, JASN 202). The CKD-EPI equation should not be used for patients with unstable renal function and has not been validated in children and those over 70. Current interpretive data was last reviewed 2021. Testing performed by: [facility], [address] [place] [address]., [address] Blood 02/16/2025 1:58 PM CDT 02/16/2025 2:02 PM CDT Dima Grant DO LAB BLOOD ORDERABLES Final R esult [facility]AC[facility] [address] [facility] Department [place] [address] * Phosphorus (02/16/2025 1:58 PM CDT) Phosphorus, pl 3.5 2.3 - 4.5 mg/dL Comment:Testing performed by : [address] [address] Blood 02/16/2025 1:58 PM CDT 02/16/2025 2:02 PM CDT Dima Grant DO LAB BLOOD ORDERABLES Final R esult [facility] [address] [facility] [place] [address] * (ABNORMAL) Comprehensive metabolic panel (02/16/2025 1:58 PM CDT) Pathologist [facility] Sodium 137 135 - 145 mmol/L Comment:Testing performed by : [address] [address] Potassium, pl 4.3 3.3 - 4.9 mmol/L MANDY Comment:Testing performed by : [address] [address] Chloride 99 97 - 110 mmol/L MANDY Comment:Testing performed by : [address] [address] CO2 27 22 - 32 mmol/L MANDY Comment:Testing performed by : [address] [address] Anion gap 11 2 - 15 mmol/L MANDY Comment:Testing performed by : [address] [address] BUN 26(H) 6 - 25 mg/dL MANDY Comment:Testing performed by : [address] [address] Creatinine 0.90 0.60 - 1.10 mg/dL MANDY Comment:Testing performed by : [address] [address] Glucose 98 70 - 199 mg/dL MNADY Comment: Interpretive Data Fasting glucose >/= 126 [...] was last revised 2022. Testing performed by: [address] [address] Calcium 9.4 8.5 - 10.3 mg/dL MANDY Comment:Testing performed by : [address] [address] Bilirubin, total 0.2 0.1 - 1.2 mg/dL MANDY Comment:Testing performed by : [address] [address] Protein, pl 6.5 6.5 - 8.5 g/dL MANDY Comment:Testing performed by : [address] [address] Albumin 4.3 3.5 - 5.0 g/dL MANDY Comment:Testing performed by : [address] [address] Alk phos 97 40 - 130 Units/L MANDY Comment:Testing performed by : [address] [address] ALT 23 7 - 45 Units/L MANDY Comment:Testing performed by : [address] [address] AST 29 10 - 45 Units/L MANDY Comment:Testing performed by : [address] [address] Blood 02/16/2025 1:58 PM CDT 02/16/2025 2:02 PM CDT us Dima Grant DO LAB BLOOD ORDERABLES Final R esult MANDY [address] [facility] [place] [address] * Dexa Axial Skeleton Bone Density 1 or 2 Site (08/27/2024 10:19 AM CDT) Anatomical Region Laterality Modality Body N/A Radiographic Patricia ging us Historical Provider MD PONCE DXA PROCEDURES Final Result from Last 3 Months or Most Recently Relevant to Health Maintenance Insurance MEDICARE [facility] COMMERCIAL GENERIC MEDICARE [facility] Advance Directives For more information, please contact: [phone] Documents on File [id number]|2025-03-24 08:11:00|2025-03-24 08:10:00|XMS_ITS|BKG KELLY|External Medical Summaries|[id number]|" Oncology Summary Created on: March 24, 2025 Joanna Mancilla : 1945 Sex: Female Author Organization [facility] Address [address] [place] [address] Care Team Providers Care Site Leasing Agent Name Role Phone Aft, Amee Bustos MD PhD Unavailable [phone] Keren Watts MD Unavailable Dima Grant DO Unavailable [phone] Delmy Carrero DO Primary Care Provider [phone] Sai Sesay MD Unavailable [phone] Active Problems Problem Noted Date Diagnosed Date 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 Will check thyroid function test and adjust levothyroxine dose accordingly. 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 Akhtar. PET showed no metastases. Low risk, no BAZZI given Follow up neck LIZETH Thyroid cancer 04/06/2024 Thyroid nodule 03/16/2024 Cystocele, midline 02/25/2024 Nasal obstruction 01/08/2024 Facial pain 01/08/2024 Closed fracture of nasal bones 01/06/2024 Fall, initial encounter 12/30/2023 Osteoporosis without current pathological fractu re 04/10/2022 Assessment & Plan (10/11/2024 1:34 PM POSTAL TRANSPORTATION CLERK): On Prolia History of breast cancer 09/05/2021 Feeling of incomplete bladder emptying Assessment & Plan (01/13/2021 1:58 PM POSTAL TRANSPORTATION CLERK): -PVR 30 PLAN: -Rock back and forth and squeeze pelvic muscles at end of voiding. Urge incontinence 01/13/2021 Assessment & Plan (01/13/2021 2:07 PM POSTAL TRANSPORTATION CLERK): -Avoid caffeine and large amounts of fluid [...] 01/13/2021 Assessment & Plan (01/13/2021 2:08 PM POSTAL TRANSPORTATION CLERK): -Refer to handout on bladder irritants and [...] by Dima Grant DO on 03/19/2020 Current Treatment and Therapy Plans denosumab (PROLIA) Injection* Plan Start Date:05/01/2022 Plan Provider:Dima Grant DO Linked Problems 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, estrogen receptor positive (HCC)Osteoporosis without current pathological fracture, unspecified osteoporosis type Treatment Medications No medications scheduled. Past Treatment and Therapy Plans Oncology Chemotherapy Treatment Plan Name Start [...] of 6 cycles started Radiation Treatments * Course C1_[id number]_20 08/29/2020 - 09/26/2020 Treatment Period Energy Fraction Dose Fractions Total Dose Plans Planned LEFT BREAST 08/29/2020 - 09/26/2020 570 5 / 2,850 Reference Points Delivered PTV_BREAST_L 08/29/2020 - 09/26/2020 2,850 Lifetime Dose Tracking * Chemical Lifetime Dose Automatic Entry Manual Entr y cyclophosphamide 3,466.237 mg/m2 (6,508 mg) 3,466.237 mg/m2 (6,508 mg) 0 mg/m2 (0 mg) DLP 3,500 mGycm 3,500 mGycm 0 mGycm Treatment Summaries Malignant neoplasm of lower-outer quadrant of left breast of female, estrogen receptor positive (HCC)* Images from the original note were not included. [place] [address] [facility], [address] [place] [address] This Survivorship Care Plan is a cancer [...] Breast Cancer General Information Patient name Joanna Kings (home) Date of 1945 Health Care Providers (Including Names, Institutions) Provider Name: Contact Information: Primary Care Physician Delmy Carrero DO [phone] Surgeon Aft, Amee Bustos MD PhD [phone] Radiation Oncologist Keren Watts MD [phone] Medical Oncologist Dima Grant, Plastic Surgeon Other Providers Treatment Summary Cancer [...] Stage IA (pT1b, pN0(sn), cM0, G3, ER+, MT-, HER2-) - Signed by Keren Watts MD on 03/29/2020 - Clinical stage from 03/17/2020: Stage IB (cT1b, cN0(sn), cM0, G3, ER+, MT-, HER2-) - [...] breast cancer could run in the family: Dru[place] heritage History of ovarian cancer in the [...] optimal health. Coordinating Provider When/How often Dima Grant DO Every 3-6 months for year 1 to 3 Dima Grant DO Every 12 months for year 4 to 5 Keren Watts MD Every 3 to 6 months for the first year and then yearly Aft, Amee Bustos MD PhD Yearly Delmy Carrero After 5 years, annual follow up Cancer Surveillance or other Recommended Tests Coordinating Provider Test How Often Dima Grant DO - Year 1-5, Vernace, Delmy Jacinta, DO - After year 5 Mammogram for remaining breast(s) Yearly Dima Grant, DO Cardiac monitoring Every 3 months while on Herceptin FOOD SAMPLER: No care clinical team manager to display Pap/pelvic exam (woman only) As [...] Help learning to eat healthier, call the bank sales and service manager Niecy Costello at: [phone] Have an active lifestyle, strive for 30 [...] man. Resources you may be interested in: [facility] A National Cancer [place] [facility] http://www.[facility]/ [facility] 1st floor of [facility] [phone]. Computer access, educational material, counseling services (FREE) Cancer Resources: www.cancer.net [place] Disabilities Act: The U.S. Department of Justice provides information about the Americans with Disabilities Act (ADA). Toll free number http://www.ada.gov/ Occupational Therapy at [facility]. Improve memory and thinking following chemotherapy. Improve your performance at home, work and in the community. or Toll free www.ot.[facility]/patients Managing your weight after a cancer diagnosis: http://www.cancer.net/sites/cancer.net/files/weight_after_cancer_diagnosis.pdf National Coalition for Cancer Survivorship: http://www.canceradvocacy.org/ [place] Cancer Society Cancer Survivors Network: http://csn.cancer.org/ Spring[employer] Beyond Cancer: https://survivorship.cancer.gov/ an online tool for cancer survivors and caregivers created by the [place] Cancer Society and the National Cancer [place]. It provides: Information on dealing with side effects from cancer and treatment Caregivers with support and resources Practical advice about talking to friends and family about cancer Questions to ask their health care team Help understanding their rights in the workplace "
--- OUTSIDE RECORDS SUMMARY | 2025-03-24 08:10 | XMS_ITS | Encounter Summary ---
Author Organization [facility] Address [address] [place] [address] Care Team Providers Care Inbound Customer Service Agent Name Role Phone Delmy Carrero DO Primary Care Provider [phone] Amee Hermosillo MD PhD Unavailable [phone] Keren Watts MD Unavailable Dima Grant DO Unavailable Chloe Sebastian LINOTYPER Primary Care Provider + Delmy Carrero DO Primary Care Provider [phone] Sai Sesay MD Unavailable [phone] Encounter Details Date Type Department Care Team (Late st Contact Info) Description 03/30/2020 Telephone [facility] Advanced Medicine Radiation Oncology [address] 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 Not on file Not on file Not on file documented as of this encounter Plan of Treatment Not on file documented as of this encounter Visit Diagnoses Not on filedocumented in this encounter Care Teams Inbound Customer Service Agent Relationship Specialty Start Date End Date Delmy Carrero DO PCP - General Family Medicine 01/14/20 11/08/20 Chloe Sebastian NP [address] [address] PCP - General 11/09/20 01/10/21 Delmy Carrero DO PCP - General Family Medicine 01/11/21 Aft, Amee Bustos MD PhD [address] [place] [address] Surgeon Surgical Oncology 03/29/20 Keren Watts MD [address] [address] Radiation Oncologist Radiation Oncology 03/29/20 Dima Grant DO [address] [address] Medical Oncologist/Salesperson Floor Coverings Hematology and Oncology 03/29/20 Sai Sesay MD [address] [facility] [address] [address] Consulting Physician Endocrinology Diabetes & Metabolism 05/04/24 documented as of this encounter
--- OUTSIDE RECORDS SUMMARY | 2025-03-24 08:10 | XMS_ITS | Encounter Summary ---
Author Organization [facility] Address [address] [place] [address] Phone Care Team Providers Care Forestry Worker Name Role Phone Delmy Carrero DO Primary Care Provider [phone] Amee Hermosillo MD PhD Unavailable Keren Watts MD Unavailable Dima Grant DO Unavailable [phone] Chloe Sebastian MANAGER TAX Primary Care Provider + Delmy Carrero DO Primary Care Provider [phone] Sai Sesay MD Unavailable [phone] Encounter Details Date Type Department Care Team (Late st Contact Info) Description 05/10/2020 Telephone [facility] Oncology [address] [place] [address] [place] [address] Aneta Ruth, RN Social History Tobacco [...] on file Legal Sex Female 9:36 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 ENGINEER Gender Identity Not on file Sexual Orientation Not on file 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 on file Not on file Not on file documented as of this encounter Plan of Treatment Not on file documented as of this encounter Visit Diagnoses Not on filedocumented in this encounter Care Teams Forestry Worker Relationship Specialty Start Date End Date Delmy Carrero DO PCP - General Family Medicine 01/14/20 11/08/20 Chloe Sebastian NP [address] [address] PCP - General 11/09/20 01/10/21 Delmy Carrero DO PCP - General Family Medicine 01/11/21 Aft, Amee Bustos MD PhD [address] [place] [address] Surgeon Surgical Oncology 03/29/20 Keren Watts MD [address] [address] Radiation Oncologist Radiation Oncology 03/29/20 Dima Grant DO [address] [facility] [address] [place] [address] Medical Oncologist/Crane Operator Cab Hematology and Oncology 03/29/20 [place] [address] [place] [address] Consulting Physician Endocrinology Diabetes & Metabolism 05/04/24 documented as of this encounter
--- OUTSIDE RECORDS SUMMARY | 2025-03-24 08:11 | XMS_ITS | Encounter Summary ---
Author Organization [facility] Address [address] [place] [address] Phone Care Team Providers Care Salon Professional Name Role Phone Aft, Amee Bustos MD PhD Unavailable [phone] Keren Watts MD Unavailable Dima Grant DO Unavailable Delmy Carrero DO Primary Care Provider [phone] Sai Sesay MD Unavailable [phone] Encounter Details Date Type Department Care Team (Late st Contact Info) Description 03/18/2025 Results Follow-Up [facility] Surgery [address] [facility] Floor [address] [place] [address] Yeimy Mcdaniel NP [address] [facility] [id number] [place] [address] Social History Tobacco Use Types Packs/Day Years Used Date Smoking Tobacco: Former Cigarettes 1 18 1 963 - 1980 Passive Smoke Exposure: Never Smokeless Tobacco: Never Alcohol Use Standard Drinks/Week Comments Yes 6 (1 standard drink = 0.6 oz pur e alcohol) [facility] Utilities Answer Date Recorded In the past 12 months has [employer] electric, gas, oil, or water company threatened [...] week 12/31/2023 How often do you attend [facility] or buddhism services? More than 4 times per year [...] and heating? 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 on file Not on file Not on file documented as of this encounter Plan of Treatment Not on file documented as of this encounter Visit Diagnoses Not on filedocumented in this encounter Care Teams Salon Professional Relationship Specialty Start Date End Date Delmy Carrero DO [address] [facility] [address] [place] [address] PCP - General Family Medicine 01/11/21 Aft, Amee Bustos MD PhD [address] [place] [address] Surgeon Surgical Oncology 03/29/20 Keren Watts MD [address] [facility] [address] [place] [address] Radiation Oncologist Radiation Oncology 03/29/20 Dima Grant DO [address] [facility] [address] [place] [address] Medical Oncologist/Steerer Hematology and Oncology 03/29/20 Sai Sesay MD [address] [address] Consulting Physician Endocrinology Diabetes & Metabolism 05/04/24 documented as of this encounter
--- OUTSIDE RECORDS SUMMARY | 2025-03-24 08:11 | XMS_ITS | Continuity of Care Document ---
Author Organization [facility] Address [address] [place] [address] [place] [address] Phone Care Team Providers Care Beader Tender Name Role Phone Fred Corley MD Unavailable [...] Diagnoses Date Provider Providers Copied on Encounter [facility], [address], [place], [place], [id number], [place] tel:[phone] SEC [place] Professional Complete Exam (chief complaint) Presence of intraocular lensFamily history of macular degenerationDr usen (degenerative) of macula, bilateralOptic cupping of both eyesDry eye syndrome of bilateral lacrimal glands 3 Barney Ibarra. [address], [place], [place], [address], [place]. tel:[phone] Dima Grant MD.Referri ng Provider: Fred Guillory, [address], [place], [address] . tel:[phone] [facility], [address] [place] [address] [address], [place], [place], [id number], [place] tel:[phone] SEC [place] Professional Complete Exam (chief complaint) Dry eye syndrome of bilateral lacrimal glandsFamily history of macular degenerationOp tic cupping of both eyesPresence of intraocular lens 2 Barney Ibarra. [address], [place], [place], [address], [place]. tel:[phone] Dima Grant MD.Referri ng Provider: Fred Guillory, [address], [place], [address] . tel:[phone] [facility], [address] [place] [address] [address], [place], [place], [id number], [place] tel:[phone] SEC [place] Professional Complete Exam (chief complaint) Family history of macular degenerationPr esence of intraocular lensDry eye syndrome of bilateral lacrimal glandsOptic cupping of both eyes 1 Barney Ibarra. [address], [place], [place], [address], [place]. tel:[phone] Dima Grant MD.Referri ng Provider: Fred Guillory, [address], [place], [address] . tel:[phone] [facility], [address], [place], [place], [address], [place] tel:[phone] SEC Keanu Thompson No Information 1 Barney Ibarra. [address] [facility], [place], [place], [address], [place]. tel:[phone] Specialist : Dima Grant MD, [address] [facility] [address], [place], [address]. tel:[phone] Family History Family Member Type Diagnosis Age At Onset Problem Family history of degenerati ve disorder of macula Problem Family history of Diabetes batool davis Payers Payer name Insurance type Covered democrat ID [place] lackey(s) [place] [id number] [facility] [id number] Social History Type Description Quantity Date Captured [...] and left eye. Patient states eyes maybe germ drier than before. Patient states she finds [...] and left eye. Patient states eyes maybe germ drier than before. Patient states she finds [...]
--- OUTSIDE RECORDS SUMMARY | 2025-03-24 08:11 | XMS_ITS | Clinical Summary ---
Author Organization [address] Address [address] [place] [address] Care Team Providers Care Manager Of Finance Name Role Phone Unavailable Primary Care Provider Unavailabl e Allergies Active Allergy Reactions Criticality Noted Date Comments Sulfa (Sulfonamide Antibiotics) Nausea and Vomiting,Headache Low 06/10/2017 Medications fluticasone (FLONASE) 50 mcg/spray [place], SuspensionIndica tions:Chronic rhinitis, unspecified type Administer 2 [...] 68 07/28/2019 8:33 AM CDT Temperature 37 C (98.6 F) 01/21/2019 3:52 PM CDT Respiratory Rate 18 [...] ) (1 - 1-dose 75+ series) 2021 OSTEOPOROSIS SCREENING 06/07/2021 06/07/2016 INFLUENZA VACCINE (#1) 2024 9, 07/29/2018, 09/04/2017 DTAP/TDAP/TD VACCINES (2 - T d or Tdap) 03/07/2027 03/07/2017 PNEUMOCOCCAL VACCINE 50+ YEARS Completed 09/04/2017 , 10/07/2013 COLORECTAL SCREENING [...] ORDERABLES Ed ited Result - Final TEREZA CANCHOLA CLGAEL# [id number] [address] [place] [address] * (ABNORMAL) XR DEXA BONE DENSITY AXIAL 1 OR MORE SITES (06/07/2016) Anatomical Region Laterality Modality Other us Abstract Aok Provider DIAGNOSTIC IMAGING ORDERAB LES Edited Result - Final from Last 3 Months or Most Recently Relevant to Health Maintenance Insurance MEDICARE PART A AND [place] [place] [address]
--- OUTSIDE RECORDS SUMMARY | 2025-03-24 08:11 | XMS_ITS | Clinical Summary ---
Author Organization [facility] Address [address] [facility] [address] 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 Gender Identity Not on file Sexual Orientation [...] VACCINE (1 of 2) 1996 PNEUMOCOCCAL VACCINE 50+ YEA RS (2 of 2 - PCV) 10/07/2014 10/07/2013 RSV VACCINE (60+ or ) (1 - 1-dose 75+ series) 2021 INFLUENZA VACCINE (#1) 2024 07/28/2019, 2017 OSTEOPOROSIS SCREENING 12/14/2024 0, 06/07/2016, 06/07/2016 DTAP/TDAP/TD VACCINES (2 - T d or Tdap) 03/07/2027 03/07/2017 COLORECTAL SCREENING Discontinued 10/27/2017, 10/27/2017, 10/27/2017, Additional history exists Colorectal Cancer Screening Discontinued FIT-DNA Q 3 years Discontinued FIT/FOBT Q 1 year Discontinued Flex Sig/CT Colonography Q 5 years Discontinued Procedures Procedure Name Priority Date/Time Associated Diagnosis Comments ENDOSCOPY, COLON, SCREENING 10/27/2017 12:00 AM 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
[2025-03-24 19:35] LABS: Alanine Aminotransferase 29 U/L (6-35); Alkaline Phosphatase 101 U/L (38-126); Anion Gap 9 mmol/L (4-12); Aspartate Amino Transferase 52 U/L (14-36); Bilirubin,Total 0.3 mg/dL (0.2-1.3); Blood Urea Nitrogen 28 mg/dL (7-17); Calcium 8.8 mg/dL (8.4-10.2); Carbon Dioxide 25 mmol/L (22-30); Chloride 104 mmol/L (98-107); Cholesterol 166 mg/dL (0-200); Estimated Glomerular Filt Rate > 60; Glucose 62 mg/dL (65-110); HDL Direct 48 mg/dL; Potassium 4.7 mmol/L (3.4-5.0); Sodium 138 mmol/L (137-145); Triglycerides 74 mg/dL (<150)
[2025-03-24 19:48] LABS: LDL Cholesterol Direct 82 mg/dL
[2025-03-24 20:35] LABS: Free T4 Free Thyroxine 1.28 ng/dL (0.78-2.19)
== END 2025-03-24 08:05 | disposition home or self-care (01) ==
LOC: ANHGOSHLAB 08:06
PROVIDERS: PCP Family Medicine; Visit Provider Nurse Practitioner
DX: C73 Malignant neoplasm of thyroid gland (principal); E78.5 Hyperlipidemia, unspecified
CPT/HCPCS: 36415; 80053; 80061; 84439; 84443

== ENCOUNTER 2025-04-13 13:01 | Emergency (ER) | payer MEDICARE, SELFPAY ==
--- NOTE | ~2025-04-13 | XR_ITS ---
XR tibia fibula RT 2V 04/13/2025 13:40 INDICATION: Right leg pain PROCEDURE: 2 views right tibia/fibula COMPARISON: No prior studies for comparison. FINDINGS: Fracture, dislocation or subluxation is not identified. The soft tissues appear within norm al limits. No foreign bodies are identified. IMPRESSION: 1: NO ACUTE BONE OR JOINT ABNORMALITY IDENTIFIED. Reviewed, dictated and finalized at location A.
[2025-04-13 13:17] VITALS: BP 116/80; PULSE 70; RESP 16; TEMP 36.8; O2SAT 99
--- NOTE | 2025-04-13 13:29 | ED_ITS ---
HPI - Wound/Laceration General Chief Complaint: Wound/Laceration Stated Complaint: R LEG LACERATION Time Seen by Provider: 04/13/25 13:29 Source: patient and RN notes reviewed Mode of arrival: ambulatory Limitations: no limitations History of Present Illness HPI narrative: 79-year-old female presents Express Care complaining of right lower leg injury. Patient said she struck her right naidu on the maintenance aide causing a skin tear to her right lower leg. Patient said it started to bleed she immediately covered it with paper towels and bandages. Bleeding is controlled prior to arrival. Patient reports pain and swelling around the skin tear. Patient is able to bear weight on her right leg. Patient states her tetanus is up-to-date. Patient denies any other symptoms. Related Data Home Medications ?Medication ?Instructions ?Recorded ?Confirmed ?Last Taken ?Type letrozole 2.5 mg tablet 2.5 mg PO DAILY 05/19/20 03/16/25 Unknown History denosumab 60 mg/mL subcutaneous 60 mg subcut [id number] 07/18/22 03/16/25 Unknown History syringe (Prolia) calcium 260 mg (phos,tribasic)-D3 1 tablet PO DAILY 05/23/24 03/16/25 Unknown History 25 mcg-herbal 50 mg chewable tablet (Alive Calcium-Vitamin D3) vitamins A,C,L-vnqm-udpzly 2,148 1 tablet PO DAILY 05/23/24 03/16/25 Unknown History mcg-113 mg-45 mg-17.4 mg tablet (PreserVision AREDS) levothyroxine 50 mcg tablet 50 mcg PO DAILY 07/28/24 03/16/25 Unknown History ferrous sulfate 325 mg (65 mg mg PO 03/16/25 03/16/25 Unknown History iron) tablet fluoride (sodium) 1.1 % dental dental 03/16/25 03/16/25 Unknown History paste Allergies Allergy/AdvReac Type Severity Reaction Status Date / Time nitrofurantoin AdvReac Intermediate Diarrhea Verified 03/16/25 14:38 gluten AdvReac Mild Diarrhea Verified 03/16/25 14:38 Sulfa (Sulfonamide AdvReac Unknown Headache Verified 03/16/25 14:38 Antibiotics) Review of Systems Review of Systems: CONSTITUTIONAL: Denies fever, chills, or sweats. EYES: Denies visual changes, redness, or discharge. ENT: Denies rhinorrhea, congestion, sore throat, or otalgia. CARDIOVASCULAR: Denies chest pain, palpitations, or edema. RESPIRATORY: Denies cough or dyspnea. GASTROINTESTINAL: Denies abdominal pain, nausea, vomiting, or diarrhea. GENITOURINARY: Denies dysuria or hematuria. SKIN: Positive for skin tear. MUSCULOSKELETAL: Denies back pain, joint pain, or myalgia. Positive for right leg injury. NEUROLOGIC: Denies headache, numbness, or weakness. PSYCHIATRIC: Denies anxiety or depression. All other systems reviewed are negative, except as documented in HPI. [facility] Past Medical History Medical History Fracture of nasal bone Hepatitis C antibody test negative (07/18/21) Carcinoma of left breast Microscopic hematuria Hypertension Depression Arthritis Osteopenia Diverticulitis Hammer toe (~08/2016) [facility] use of drug Surgical History Surgical History History of lumpectomy of left breast (~2019) History of tonsillectomy (~1965) History of cataract extraction (~2015) Family History Family History Mother Diabetes mellitus Family history of osteoporosis Family history of glaucoma Hypertension Cerebrovascular accident Carcinoma of colon Family history of lung disease Family history of hearing loss Father Family history of glaucoma Hypertension Family history of chronic obstructive pulmonary disease Family history of congestive heart failure Sibling Family history of malignant melanoma Social History Social History Social History: Caffeine-coffee Smoking packs per day: 1 Smoking cigarettes per day: 20.0 Years smoked: 10 Smoking pack-years: 10.00 Smoking status: Former smoker Tobacco type: cigarettes Smoking end date: 11/10/80 Alcohol intake: current Alcohol use details: very occasional Substance use: never Substance use type: does not use Lack of Transportation: No Lack of Food: Sometimes True Current Housing: I Have Housing Concerned About Future Housing: No Difficulty Paying Gas/Electric Bills: No Difficulty Paying for Meds: No Currently Unemployed: No Education: Master's Degree or Higher Difficulty w/ Childcare or Family Care: No Living arrangements: alone Spiritual care concerns: No Comments At the time of my signature, I reviewed and agree with the nursing past medical, surgical, social, and family history. There is no relevant family history pertinent to the patient complaint. Exam Narrative: GENERAL: This is a well-nourished, well-developed adult, in no apparent distress. They are non ill-appearing, nontoxic appearing. HEAD: normocephalic, atraumatic. EYES: Sclera clear/white. Conjunctiva normal. Vision is grossly intact. Extraocular movements intact EARS: External ears normal, Hearing grossly intact. NOSE: External nose normal THROAT: Mucous membranes moist, NECK: Neck supple, CARDIOVASCULAR: Regular rate and rhythm without murmurs, gallops, or rubs. RESPIRATORY: Respiratory rate normal, respiratory effort nonlabored, no respiratory distress SKIN: Skin tear to the right distal lateral lower leg. Skin tear is measuring approximately 3 cm long. Mild swelling around skin tear. There is tenderness to palpation. No area of erythema, discharge, induration, or for area of fluctuance. No exudate. No bruising. Neurovascular status intact distal injury. NEURO: awake, alert, and oriented to person, place and time. There were no obvious focal neurologic abnormalities. EXTREMITIES: No joint tenderness, effusion, or edema noted. Course Course Emergency Course: Portions of this record may have been created with voice recognition software Level of Care: Express Care Visit Vital Signs Vital signs: Vital Signs Temperature 98.2 F 04/13/25 13:17 Pulse Rate 70 04/13/25 13:17 Respiratory Rate 16 04/13/25 13:17 Blood Pressure 116/80 04/13/25 13:17 Pulse Oximetry 99 04/13/25 13:17 Temperature 98.2 F 04/13/25 13:17 Pulse Rate 70 04/13/25 13:17 Respiratory Rate 16 04/13/25 13:17 Blood Pressure 116/80 04/13/25 13:17 Pulse Oximetry 99 04/13/25 13:17 Reviewed MDM - Wound/Laceration MDM Narrative Medical decision making narrative: X-ray of right tibia/fibula negative for any fracture or acute findings. Skin tear is superficial. Patient skin tear was cleaned by nursing staff and a non adherent dressing was applied by nursing staff. Patient's tetanus up-to-date. No evidence of infection. Discussed physical exam findings. Advised supportive measures and signs/symptoms to go to the ER. Pt is appropriate for outpt treatment and f/u. Differential Diagnosis Differential diagnosis: Likely laceration, abrasion and avulsion of skin Imaging Data Radiologist's impression: ITS Impressions Tibia/Fibula X-Ray 04/13/25 13:44 IMPRESSION: 1: NO ACUTE BONE OR JOINT ABNORMALITY IDENTIFIED. Critical Care Time Critical Care Time Critical Care Time: No Discharge Plan Discharge Clinical Impression: Noninfected skin tear of right lower extremity Qualifiers: Encounter type: initial encounter Qualified Code(s): S81.811A - Laceration without foreign body, right lower leg, initial encounter Patient Disposition: Home Condition: Stable Instructions: Skin Tear (ED) Additional Instructions: Your x-ray of your right tibia/fibula is negative for any fractures or acute findings. Please use in nonstick dressing to cover your skin tear. Please wash daily with mild soap and water. Avoid dirty water is pools, lakes, [place], [place], tub soaks, or hot tubs until the wound has healed completely in scabbed over. Follow-up with PCP in 3-5 days. He developed any redness, swelling, pain, fevers, green or yellow drainage, or any other concerns please go to the ER immediately. Patient Language: Urdu Prescriptions: No Action triamcinolone acetonide 0.1 % cream 1 applic TOPICAL TID 7 Days Qty: 80 0RF PreserVision AREDS 2,148 mcg-113 mg-45 mg-17.4mg Tablet 1 tablet PO DAILY Alive Calcium-Vitamin D3 260 mg calcium- 25 mcg-50 mg Tablet,Chewable 1 tablet PO DAILY letrozole 2.5 mg tablet 2.5 mg PO DAILY ferrous sulfate 325 mg (65 mg iron) tablet PO fluoride (sodium) 1.1 % paste dental Prolia 60 mg/mL syringe 60 mg subcut [id number] levothyroxine 50 mcg tablet 50 mcg PO DAILY Patient Comments: Prescribed by Endocrinology sertraline 25 mg tablet 25 mg PO DAILY Qty: 90 1RF lisinopril 20 mg tablet 20 mg PO BID Qty: 180 1RF Follow-up/Referrals: Delmy Carrero DO [Primary Care Provider] - Time of Disposition: 13:55
== END 2025-04-13 13:57 | disposition home or self-care (01) ==
PROVIDERS: PCP Family Medicine
DX: S81.811A Laceration without foreign body, right lower leg, initial encounter (principal); W22.8XXA Striking against or struck by other objects, initial encounter; Z87.891 Personal history of nicotine dependence; I10 Essential (primary) hypertension; M19.90 Unspecified osteoarthritis, unspecified site; M85.80 Other specified disorders of bone density and structure, unspecified site; Z85.3 Personal history of malignant neoplasm of breast; Z90.12 Acquired absence of left breast and nipple
CPT/HCPCS: 73590; 99213; G0463

== ENCOUNTER 2025-08-25 07:53 | Outpatient (CLI) | payer MEDICARE, SELFPAY ==
--- OUTSIDE RECORDS SUMMARY | 2023-02-04 04:00 | XMS_ITS | Continuity of Care Document ---
Author Organization [facility] Address [address] [place] [address] [place] [address] Phone Care Team Providers Care And Drying Supervisor Cooking Casing Name Role Phone Fred Corley MD Unavailable Unavailable Allergies, Adverse Reactions, Alerts Substance Reaction Status Criticality Sulfa (Sulfonamide Antibiotics) Active No Information Medications Medication Instructions Dosage Effective Dates (start - stop) Status Comments PreserVision AREDS 4,296 mcg-226 mg-90 mg capsule take 1 capsule by oral route 2 times every day 1 capsule - Active lisinopril 5 mg tablet take 1 tablet by oral route every day 5 MG - Active letrozole 2.5 mg tablet take 1 tablet by oral route every day 2.5 MG - Active Calcium 600 + D(3) 600 mg calcium-200 unit capsule take 1 by oral route every day 1 - Active alendronate 35 mg tablet take 1 tablet by oral route every week in the morning, at least 30 min before first food, beverage, or medication of day 35 MG - Active Procedures Procedure Date Refraction SCODI, Retina No Charge Optomap Fundus Photos 023 Eye Exam & Treatment No Charge Refraction Fundus Photography W/ Report Eye Exam & Treatment Fundus Photography W/ Report Eye Exam, New Patient Advance Directives Directive Yes / No Effective Date File Name No Information Encounters Encounter Description Practice Location Reason(s) For Visit Diagnoses Date Provider Providers Copied on Encounter [facility], [address], [place], [place], [id number], [place] tel:[phone] [place] Professional Complete Exam (chief complaint) Presence of intraocular lensFamily history of macular degenerationDr usen (degenerative) of macula, bilateralOptic cupping of both eyesDry eye syndrome of bilateral lacrimal glands 3 Barney Ibarra. [address], [place], [place], [id number], [place]. tel:[phone] Dima Grant MD.Referri ng Provider: Fred Guillory, [address], [place], [address] . tel:[phone] [facility], [address] [place] [address] [address], [place], [place], [id number], [place] tel:[phone] [place] Professional Complete Exam (chief complaint) Dry eye syndrome of bilateral lacrimal glandsFamily history of macular degenerationOp tic cupping of both eyesPresence of intraocular lens 2 Barney Ibarra. [address], [place], [place], [id number], [place]. tel:[phone] Dima Grant MD.Referri ng Provider: Fred Guillory, [address], [place], [address] . tel:[phone] [facility], [address] [place] [address] [address], [place], [place], [id number], [place] tel:[phone] [place] Professional Complete Exam (chief complaint) Family history of macular degenerationPr esence of intraocular lensDry eye syndrome of bilateral lacrimal glandsOptic cupping of both eyes 1 Barney Ibarra. [address], [place], [place], [id number], [place]. tel:[phone] Dima Grant MD.Referri ng Provider: Fred Guillory, [address], [place], [address] . tel:[phone] [facility], [address], [place], [place], [id number], [place] tel:[phone] SEC Keanu Thompson No Information 1 Barney Ibarra. [address] [facility], [place], [place], [address], [place]. tel:[phone] Specialist : Dima Grant MD, [address] [facility] [address], [place], [address]. 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 Complete Exam (chief complaint). Description: The 77 year old patient presents for evaluation of Complete Exam in the right eye and left eye. Patient states eyes maybe drier belt conveyor than before. Patient states she finds it harder to drive at night so she avoids it. Patient using OTC art prn OU and taking an eye vitamin bid po. Reason For Referral Reason For Referral No Information Plan Of Treatment Date Type Action Status Goal Tobacco cessation counseling completed Patient Education Dry Eyes: Care Instruct ions completed Patient Education Dry Eyes: Care Instruct ions completed Patient Education Dry Eyes: Care Instruct ions completed History Of Present Illness Encounter Date Complaint History Of Prese nt Illness Complete Exam The 77 year old patient presents for evaluation of Complete Exam in the right eye and left eye. Patient states eyes maybe drier belt conveyor than before. Patient states she finds it harder to drive at night so she avoids it. Patient using OTC art prn OU and taking an eye vitamin bid po. Complete Exam The 76 year old patient presents for a complete exam ou. Patient is pseudo ou. Patient states it takes her eyes a little longer to adjust from light to dark. Patient wears progressive lenses. Complete Exam The 75 year old female presents for evaluation of Complete Exam in the right eye and left eye. Patient is pseudo ou. Patient denies any changes in vision ou. Patient wears progressive lenses. Functional Status Date Functional Assessmen t No Information Instructions Date Instruction Additional Infor mation Impression/Plan Impression/Plan Impression/Plan Assessments Type Assessment Date assessment Presence of intraocular lens Jan assessment Family history of macular degene ration assessment Drusen (degenerative) of macula, bilateral assessment Optic cupping of both eyes Jan- assessment Dry eye syndrome of bilateral la crimal glands Patient Care Teams Name Effective Dates (start - stop) Status Members No Information
--- OUTSIDE RECORDS SUMMARY | 2025-08-25 07:58 | XMS_ITS | Clinical Summary ---
Author Organization [facility] Address [address] [place] [address] Care Team Providers Care Music Sound Light Technician Name Role Phone NormatAmee MD PhD Unavailable [phone] Keren Watts MD Unavailable Dima Grant DO Unavailable Delmy Carrero DO Primary Care Provider [phone] Sai Sesay MD Unavailable [phone] Allergies Active Allergy Reactions Criticality Noted Date Comments Nitrofurantoin Monohyd/M-Cryst Diarrhea,Fatigue Low 06/20/2023 Sulfa (Sulfonamide Antibiotics) Headache,Nausea And Vomiting Low 06/10/2017 Medications fluticasone propionate (FLONASE) 50 mcg/actuation nasal sprayIndications :Allergic Rhinitis Administer 2 sprays into affected nostril(s) as needed for rhinitis or allergies 8 Active hydrocortisone 2.5 % creamIndications :hemorrhoids Insert 1 Application into the rectum 2 (two) times a day as needed for irritation 9 Active lisinopriL (PRINIVIL,ZESTRI L) 20 mg tabletIndication s:hypertension Take 1 tablet (20 mg total) by mouth 2 (two) times a day Active vit C,X-Uf-fjjko-lut ein-zeaxan (PreserVision AREDS-2) 250-90-40-1 mg capsuleIndicatio ns:supplement Take 1 capsule by mouth 2 (two) times a day 2 Active sertraline (ZOLOFT) 25 mg tabletIndication s:Generalized Anxiety Disorder Take 1 tablet (25 mg total) by mouth every morning 4 Active acetaminophen (TYLENOL) 500 mg tablet Take 2 tablets (1,000 mg total) by mouth every 6 (six) hours as needed for pain 60 tablet 4 Active Additional Information Patient not taking.Reported on 07/27/2025 ibuprofen (ADVIL,MOTRIN) 600 mg tablet Take 1 tablet (600 mg total) by mouth every 6 (six) hours as needed for pain 30 tablet 4 Active denosumab (PROLIA) 60 mg/mL syringe Inject under the skin once Active ferrous sulfate 325 mg (65 mg of elemental iron) tablet TAKE 1 TABLET BY MOUTH EVERY DAY WITH BREAKFAST 90 tablet 1 5 Active levothyroxine (SYNTHROID) 50 mcg tablet TAKE 1 TABLET BY MOUTH EVERY DAY 90 tablet 1 5 Active letrozole (FEMARA) 2.5 mg tabletIndication s:Malignant neoplasm of lower-outer quadrant of left breast of female, estrogen receptor positive (HCC),Malignant neoplasm of lower-outer quadrant of left female breast, unspecified estrogen receptor status (HCC) TAKE 1 TABLET BY MOUTH EVERY DAY 90 tablet 1 5 Active Active Problems Problem Noted Date Diagnosed Date 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 Will check thyroid function test and adjust levothyroxine dose accordingly. 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 Akhtar. PET showed no metastases. Low risk, no BAZZI given Follow up neck LIZETH Thyroid cancer 04/06/2024 Thyroid nodule 03/16/2024 Cystocele, midline 02/25/2024 Nasal obstruction 01/08/2024 Facial pain 01/08/2024 Closed fracture of nasal bones 01/06/2024 Fall, initial encounter 12/30/2023 Osteoporosis without current pathological fractu re 04/10/2022 Assessment & Plan (10/11/2024 1:34 PM [employer]): On Prolia History of breast cancer 09/05/2021 Feeling of incomplete bladder emptying Assessment & Plan (01/13/2021 1:58 PM [employer]): -PVR 30 PLAN: -Rock back and forth and squeeze pelvic muscles at end of voiding. Urge incontinence 01/13/2021 Assessment & Plan (01/13/2021 2:07 PM [employer]): -Avoid caffeine and large amounts of fluid [...] 01/13/2021 Assessment & Plan (01/13/2021 2:08 PM [employer]): -Refer to handout on bladder irritants and try to avoid. 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, estrogen receptor positive 01/24/2020 Cancer Staging:Pathologic stage from 02/22/2020:Stage IA(pT1b, pN0(sn), cM0, G3, ER+, HI-, HER2-) - Signed by Keren Watts MD on 03/29/2020 Clinical stage from 03/17/2020:Stage IB(cT1b, cN0(sn), cM0, G3, ER+, HI-, HER2-) - Signed by Dima Grant DO on 03/19/2020 Encounters Date Type Department Care Team Description 08/18/2025 Documentation [facility] Medicine Scheduling [address] [place] [address] Bonnie Gaona IM DOC 08/17/2025 10:15 AM CDT Infusion [facility] at [address] [phone] Osteoporosis without current pathological fracture, unspecified osteoporosis type (Primary Dx); Malignant neoplasm of lower-outer quadrant of left breast of female, estrogen receptor positive (HCC) 08/17/2025 9:45 AM CDT Lab [facility] at [address] [address] Malignant neoplasm of lower-outer quadrant of left breast of female, estrogen receptor positive (HCC) 07/28/2025 Telephone [facility] [address] [place] [address] [place] [phone] Samantha Awad RN GI follow up 07/27/2025 8:00 AM CDT Office Visit [facility] [address] [place] [address] [place] [phone] Santiago Garcia MD Chronic diarrhea (Primary Dx); Incontinence of feces, unspecified fecal incontinence type; History of colonic diverticulitis; Family history of colon cancer; History of colonic polyps 07/14/2025 Orders Only [facility] Medicine [facility] [address] [place] [phone] Gosia Turcios, A 07/14/2025 Documentation [facility] Medicine [facility] [address] [place] [phone] Gosia Turcios, RMA 06/17/2025 9:45 AM CDT Office Visit [facility] Medicine [facility] [address] [place] [phone] Dima Gratn DO Malignant neoplasm of lower-outer quadrant of left breast of female, estrogen receptor positive (HCC) (Primary Dx) 06/15/2025 11:40 AM CDT Lab [address] [address] Malignant neoplasm of lower-outer quadrant of left breast of female, estrogen receptor positive (HCC) from Last 3 Months Immunizations Immunization Administration Dates Next Due INFLUENZA [id number] 07/29/2018 Influenza, Quadrivalent, Hig h Dose, Preservative [...] Brother Dima Pedroza Jasen Snoring Brother Dima Fairchildobi Heart disease Father Elmer Fairchildobi Snoring Father Elmer Fairchildobi Breast cancer Father's Sister Aunt - Jesica Immanuelpie Cancer Father's Sister Aunt - Jesica Tippie Cancer Mother Mother - Marifer Costner Burzi o Colon cancer Mother Mother - Marifer presley Diabetes Mother Mother - Marifer presley Hearing loss Mother Mother - Marifer presley Stroke Mother Mother - Marifer presley Diabetes Paternal Grandfather None Hearing loss Paternal [...] Years Used Date Smoking Tobacco: Former Cigarettes 963 - 1980 Passive Smoke Exposure: Never Smokeless Tobacco: Never Tobacco Cessation:Counseling Given: Not Answered Alcohol Use Standard Drinks/Week Comments Yes 6 (1 standard drink = 0.6 oz pur e alcohol) [facility] Utilities Answer Date Recorded In the past 12 months has [facility] [employer], oil, or water [employer] threatened to shut off services in your [...] or ex-partner? No 12/31/2023 Social Connection and Isolation Panel Answer Date Recorded In a typical week, how many times do you talk on the phone with family, friends, or neighbors? More than three times a week 12/31/2023 How often do you get togethe r with friends or relatives? Twice a week 12/31/2023 How often do you attend [facility] or restorationism services? More than 4 times per year 12/31/2023 Do you belong to any clubs o r organizations such as scientology groups, unions, fraternal or athletic groups, or [...] and heating? Not hard at all 12/31/2023 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 Not on file Not on file Not on file Obstetrics History Para Term AB IAB SAB Ectopic Multiple Livin g Live Births 1 1 1 1 1 Date Outcome GA Total Labor Labor/2nd/3rd Weight Sex Type Anes PTL Merna A1 A5 Name Clin 1981 Term F Vag-S pont Living Last Filed Vital Signs Vital Sign Reading Time Taken Comments Blood Pressure 151/87 08/17/2025 9:37 AM CDT Pulse 60 08/17/2025 9:37 AM CDT Temperature 36.7 C (98 F) 07/27/2025 7:52 AM CDT Respiratory Rate 16 07/27/2025 7:52 AM CDT Oxygen Saturation 99% 08/17/2025 9:47 AM CDT Inhaled Oxygen Concentration - - Weight 69 kg (152 lb 1.9 oz) 08/17/2025 9:37 AM CDT Height 160 cm (5' 3) 07/27/2025 7:52 AM CDT Body Mass Index 26.95 07/27/2025 7:52 AM CDT Plan of Treatment Health Maintenance Due Date Last Done Comments Depression Screening 1945 Hepatitis C Screening 1945 Hepatitis B Screening 1964 Well Visit 65+ 2011 Covid-19 Vaccine (2024-12 6 season) 2025 11/14/2023, 07/13/2021, 01/24/2021, Additional history exists Fall Risk Assessment 07/22/2025 07/22/2024 Osteoporosis Screening-Bone Density Scan 08/27/2026 08/27/2024, 06/07/2016, 06/07/2016 DTaP/Tdap/Td Vaccine (3 - Td or Tdap) 07/09/2034 07/09/2024, 03/07/2017 Zoster Vaccine Completed 11/27/2019, 07/12, 08/02/2019 Pneumococcal vaccine 65+ Completed 021, 09/04/2017, 10/07/2013 Breast Cancer Screening-Mammogram Discontinued 03/16/2025, 03/12/2024, 03/10/2023, Additional history exists Influenza Vaccine Completed 08/09/2025, , 08/06/2021, Additional history exists Procedures Procedure Name Priority Date/Time Associated Diagnosis Comments EGFR Routine 08/17/2025 8:54 AM CDT Malignant neoplasm of lower-outer quadrant of left breast of female, estrogen receptor positive (HCC) COMPREHENSIVE METABOLIC PANEL Routine 08/17/2025 8:54 AM CDT Malignant neoplasm of lower-outer quadrant of left breast of female, estrogen receptor positive (HCC) PHOSPHORUS Routine 08/17/2025 8:54 AM CDT Malignant neoplasm of lower-outer quadrant of left breast of female, estrogen receptor positive (HCC) EGFR Routine 06/15/2025 11:46 AM CDT Malignant neoplasm of lower-outer quadrant of left breast of female, estrogen receptor positive (HCC) DIFFERENTIAL AUTO Routine 06/15/2025 11: 46 AM CDT Malignant neoplasm of lower-outer quadrant of left breast of female, estrogen receptor positive (HCC) CANCER ANTIGEN 15-3 Routine 06/15/2025 1 1:46 AM CDT Malignant neoplasm of lower-outer quadrant of left breast of female, estrogen receptor positive (HCC) COMPREHENSIVE METABOLIC PANEL Routine 06/15/2025 11:46 AM CDT Malignant neoplasm of lower-outer quadrant of left breast of female, estrogen receptor positive (HCC) CBC WITH AUTO DIFFERENTIAL Routine 06/15/2025 11:46 AM CDT Malignant neoplasm of lower-outer quadrant of left breast of female, estrogen receptor positive (HCC) SCREENING MAMMOGRAM BILATERAL W RD Schedule Routine, Read Routine (OP Routine) 03/16/2025 11:31 AM CDT History of breast cancer Encounter for screening mammogram for malignant neoplasm of breast DEXA AXIAL SKELETON BONE DENSITY 1 OR MORE SITES Schedule Routine, Read Routine (OP Routine) 08/27/2024 10:19 AM CDT from Last 3 Months or Most Recently Relevant to Health Maintenance Results * eGFR (08/17/2025 8:54 AM CDT) eGFR 88 >=60 mL/min/1. 73 m2 Comment: Interpretive Data [...] was last reviewed 2021. Testing performed by: [facility], [address] [place] [address], [place]., [address] Blood 08/17/2025 8:54 AM CDT 08/17/2025 9:01 AM CDT us Dima Grant DO LAB BLOOD ORDERABLES Final R esult MANDY [address] [facility] Department [place] [address] * Phosphorus (08/17/2025 8:54 AM CDT) Phosphorus, pl 3.8 2.3 - 4.5 mg/dL Comment:Testing performed by : [address] [address] Blood 08/17/2025 8:54 AM CDT 08/17/2025 9:01 AM CDT Dima Grant DO LAB BLOOD ORDERABLES Final R esult [facility] [address] [facility] Department [place] [address] * Comprehensive metabolic panel (08/17/2025 8:54 AM CDT) Pathologist [facility] Sodium 139 135 - 145 mmol/L Comment:Testing performed by : [address] [address] Potassium, pl 4.2 3.3 - 4.9 mmol/L MADNY Comment:Testing performed by : [address] [address] Chloride 102 97 - 110 mmol/L MANDY Comment:Testing performed by : [address] [address] CO2 27 22 - 32 mmol/L MANDY Comment:Testing performed by : [address] [address] Anion gap 10 2 - 15 mmol/L MANDY Comment:Testing performed by : [address] [address] BUN 19 6 - 25 mg/dL MANDY Comment:Testing performed by : [address] [address] Creatinine 0.70 0.60 - 1.10 mg/dL MANDY Comment:Testing performed by : [address] [address] Glucose 88 70 - 199 mg/dL MANDY Comment: Interpretive Data Fasting glucose >/= 126 [...] was last revised 2022. Testing performed by: [address] [address] Calcium 9.7 8.5 - 10.3 mg/dL MANDY Comment:Testing performed by : [address] [address] Bilirubin, total 0.3 0.1 - 1.2 mg/dL MANDY Comment:Testing performed by : [address] [address] Protein, pl 6.8 6.5 - 8.5 g/dL MANDY Comment:Testing performed by : [address] [address] Albumin 4.2 3.5 - 5.0 g/dL MANDY Comment:Testing performed by : [address] [address] Alk phos 101 40 - 130 Units/L MANDY Comment:Testing performed by : [address] [address] ALT 23 7 - 45 Units/L MANDY Comment:Testing performed by : [address] [address] AST 29 10 - 45 Units/L MANDY Comment:Testing performed by : [address] [address] Blood 08/17/2025 8:54 AM CDT 08/17/2025 9:01 AM CDT us Dima Grant DO LAB BLOOD ORDERABLES Final R esult MANDY [address] [facility] Department [place] [address] * eGFR (06/15/2025 11:46 AM CDT) Pathologist [facility] eGFR 63 >=60 mL/min/1. 73 m2 Comment: Interpretive Data [...] interpretive data was last reviewed 2021. Blood 06/15/2025 11:4 6 AM CDT 06/15/2025 12:45 PM CDT Dima Grant DO LAB BLOOD ORDERABLES Final R es[facility] [address] [facility] [place] [address] * Differential, auto (06/15/2025 11:46 AM CDT) Pathologist [facility] Neutrophil abs 3.81 1.50 - 6.50 K/cumm Imm gran abs 0.07 0.00 - 0.10 K/cumm [facility] Lymphocyte abs 0.98 0.80 - 3.30 K/cumm [facility] Monocyte abs 0.50 0.20 - 0.80 K/cumm [facility] Eosinophil abs 0.06 0.00 - 0.50 K/cumm [facility] Basophil abs 0.02 0.00 - 0.10 K/cumm [facility] Neutrophil pct 70.0 % [facility] Comment: Interpretive Data Percent cell count reference ranges are not reported, since discordance with absolute values may lead to misinterpretation of CBC data. Current Interpretive Data was last revised on 2018. Imm gran pct 1.3 % [facility] Comment: Interpretive Data Percent cell count reference ranges are not reported, since discordance with absolute values may lead to misinterpretation of CBC data. Current Interpretive Data was last revised on 2018. Lymphocyte pct 18.0 % [facility] Comment: Interpretive Data Percent cell count reference ranges are not reported, since discordance with absolute values may lead to misinterpretation of CBC data. Current Interpretive Data was last revised on 2018. Monocyte pct 9.2 % [facility] Comment: Interpretive Data Percent cell count reference ranges are not reported, since discordance with absolute values may lead to misinterpretation of CBC data. Current Interpretive Data was last revised on 2018. Eosinophil pct 1.1 % [facility] Comment: Interpretive Data Percent cell count reference ranges are not reported, since discordance with absolute values may lead to misinterpretation of CBC data. Current Interpretive Data was last revised on 2018. Basophil pct 0.4 % [facility] Comment: Interpretive Data Percent cell count reference ranges are not reported, since discordance with absolute values may lead to misinterpretation of CBC data. Current Interpretive Data was last revised on 2018. Blood 06/15/2025 11:4 6 AM CDT 06/15/2025 12:44 PM CDT Dima Grant DO LAB BLOOD ORDERABLES Final R esult [facility] [address] [facility] [place] [address] * (ABNORMAL) CBC with auto differential (06/15/2025 11:46 AM CDT) WBC 5.44 3.80 - 9.90 K/cumm Hgb 11.5(L) 11.9 - 15.5 g/dL [facility] Hct 36.0 35.6 - 45.5 % [facility] Plt 247 150 - 400 K/cumm [facility] MPV 9.5 9.1 - 12.3 fL [facility] RBC 3.68(L) 3.90 - 5.20 M/cumm [facility] MCV 97.8(H) 81.3 - 96.4 fL [facility] MCH 31.3 27.1 - 33.3 pg [facility] MCHC 31.9(L) 32.3 - 35.7 g/dL [facility] RDW CV 14.0 11.1 - 14.9 % [facility] RDW SD 50.2(H) 35.7 - 48.1 fL [facility] NRBC abs 0.00 0.00 - 0.01 K/cumm [facility] Blood 06/15/2025 11:4 6 AM CDT 06/15/2025 12:44 PM CDT Dima Grant LAB BLOOD ORDERABLES Final R esult Performing Organization Address [facility] de Phone Number [address] [place] [address] * Cancer antigen 15-3 (06/15/2025 11:46 AM CDT) Pathologist [facility] CA 15-3 ag 19.0 <=25.0 units/mL Comment: Interpretive Data [employer] CA 15-3 assay procedure was used. Results from different manufacturers or methods may not be comparable. Serial testing should be performed using the same method. Testing performed by: [facility], [address] [place]., [address] Blood 06/15/2025 11:4 6 AM CDT 06/15/2025 3:21 PM CDT Dima Grant LAB BLOOD ORDERABLES Final R esult Performing Organization Address City/[facility] Co de Phone Number [address] [place] [address] * (ABNORMAL) Comprehensive metabolic panel (06/15/2025 11:46 AM CDT) Sodium 139 135 - 145 mmol/L Potassium, pl 4.3 3.3 - 4.9 mmol/L [facility] Chloride 104 97 - 110 mmol/L [facility] CO2 26 22 - 32 mmol/L [facility] Anion gap 9 2 - 15 mmol/L [facility] BUN 22 6 - 25 mg/dL [facility] Creatinine 0.93 0.60 - 1.10 mg/dL [facility] Glucose 98 70 - 199 mg/dL [facility] Comment: Interpretive Data Fasting glucose [...] 2022. Calcium 9.2 8.5 - 10.3 mg/dL [facility] Bilirubin, total 0.3 0.1 - 1.2 mg/dL [facility] Protein, pl 6.3(L) 6.5 - 8.5 g/dL [facility] Albumin 4.0 3.5 - 5.0 g/dL [facility] Alk phos 96 40 - 130 Units/L [facility] ALT 30 7 - 45 Units/L [facility] AST 36 10 - 45 Units/L [facility] Blood 06/15/2025 11:4 6 AM CDT 06/15/2025 12:45 PM CDT us Dima Grant DO LAB BLOOD ORDERABLES Final R esult MANDY [address] [facility] Department [place] [address] * Screening Mammogram Bilateral W Rd (03/16/2025 11:31 AM CDT) Anatomical Region Laterality Modality Breast Bilateral Mammography Narrative 03/17/2025 1:56 PM CDT Mammogram Technique: Bilateral Digital Breast Tomosynthesis, Bilateral C-view 2D Screening mammogram. Views obtained: bilateral craniocaudal and bilateral mediolateral oblique. Computer Aided Detection was performed. Mammogram Findings: The present examination has been compared to prior imaging studies performed at [facility] on 10/21/2024, and at [facility] on 03/10/2023 and 03/12/2024. There are scattered areas of fibroglandular density. There is no suspicious abnormality in either breast. Impression: There is no mammographic evidence of malignancy. Annual screening mammography is recommended. OVERALL FINAL ASSESSMENT: BI-RADS CATEGORY 1: Negative. Procedure Note oSheila Peralta MD - 03/17/2025 Mammogram Technique: Bilateral Digital Breast Tomosynthesis, Bilateral C-view 2D Screening mammogram. Views obtained: bilateral craniocaudal and bilateral mediolateral oblique. Computer Aided Detection was performed. Mammogram Findings: The present examination has been compared to prior imaging studies performed at [facility] on 10/21/2024, andat [facility] on 03/10/2023 and 03/12/2024. There are scattered areas of fibroglandular density. There is no suspicious abnormality in either breast. Impression: There is no mammographic evidence of malignancy. Annual screening mammography is recommended. OVERALL FINAL ASSESSMENT: BI-RADS CATEGORY 1: Negative. Yeimy Mcdaniel NP IMG MAMMO PROCEDURES Final Result * Dexa Axial Skeleton Bone Density 1 or 2 Site (08/27/2024 10:19 AM CDT) Anatomical Region Laterality Modality Body N/A Radiographic Patricia ging Historical Provider MD PONCE DXA PROCEDURES Final Result from Last 3 Months or Most Recently Relevant to Health Maintenance Insurance MEDICARE [facility] MEDICARE COMMERCIAL GENERIC MEDICARE [facility] Advance Directives For more information, please contact: [phone] Documents on File Type Date Recorded Patient Residential Appliance Repair Technician Expl anation ADVANCE DIRECTIVE 01/08/2024 1:08 PM * Full Code (Latest Code Status on File) Date Activated Date Inactivated Comments 04/21/2024 1:01 PM 04/22/2024 2:24 PM * Full Code Date Activated Date Inactivated Comments 12/31/2023 12:25 AM 12/31/2023 6:11 PM Care Teams Music Sound Light Technician Relationship Specialty Start Date End Date Dlemy Carrero DO [address] [place] [address] PCP - General Family Medicine 01/11/21 Aft, Amee Bustos MD PhD [address] [place] [address] Surgeon Surgical Oncology 03/29/20 Keren Watts MD [address] [place] [address] Radiation Oncologist Radiation Oncology 03/29/20 Dima Grant DO [address] [facility] [address] [place] [address] Medical Oncologist/Personal Lines Insurance Advisor Hematology and Oncology 03/29/20 Sai Sesay MD [address] [facility] [address] [place] [address] Consulting Physician Endocrinology Diabetes & Metabolism 05/04/24
--- OUTSIDE RECORDS SUMMARY | 2025-08-25 07:58 | XMS_ITS ---
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 Will check thyroid function test and adjust levothyroxine dose accordingly. 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 Akhtar. PET showed no metastases. Low risk, no BAZZI given Follow up neck LIZETH Thyroid cancer 04/06/2024 Thyroid nodule 03/16/2024 Cystocele, midline 02/25/2024 Nasal obstruction 01/08/2024 Facial pain 01/08/2024 Closed fracture of nasal bones 01/06/2024 Fall, initial encounter 12/30/2023 Osteoporosis without current pathological fractu re 04/10/2022 Assessment & Plan (10/11/2024 1:34 PM ASSISTANT TO THE DEAN): On Prolia History of breast cancer 09/05/2021 Feeling of incomplete bladder emptying Assessment & Plan (01/13/2021 1:58 PM ASSISTANT TO THE DEAN): -PVR 30 PLAN: -Rock back and forth and squeeze pelvic muscles at end of voiding. Urge incontinence 01/13/2021 Assessment & Plan (01/13/2021 2:07 PM ASSISTANT TO THE DEAN): -Avoid caffeine and large amounts of fluid [...] 01/13/2021 Assessment & Plan (01/13/2021 2:08 PM ASSISTANT TO THE DEAN): -Refer to handout on bladder irritants and [...] from the original note were not included. [address], [address] [place] [id number] This Survivorship Care Plan is a cancer [...] Information: Primary Care Physician Delmy Carrero DO [phone] Surgeon Aft, Amee Bustos MD PhD [phone] Radiation Oncologist Keren Watts MD [phone] Medical Oncologist Dima Grant DO [phone] Plastic Surgeon Other Providers Treatment Summary Cancer [...] breast cancer could run in the family: Anglican herita History of ovarian cancer in the patient [...] monitoring Every 3 months while on Herceptin CLINICAL DOCUMENTATION SPEC: No care coding team lead to display Pap/pelvic exam (woman only) As [...] Help learning to eat healthier, call the orthopedic physician assistant Niecy Costello at: [phone] Have an active lifestyle, strive for 30 [...] man. Resources you may be interested in: [facility] A National Cancer [place] [facility] http://www.[facility]/ [facility] & Cancer Information Center 1st floor of [facility] [phone]. Computer access, educational material, counseling services (FREE) Cancer Resources: www.cancer.net Canadian Disabilities Act: The U.S. Department of Justice provides information about the Americans with Disabilities Act (ADA). Toll free number http://www.ada.gov/ Occupational Therapy at [facility]. Improve memory and thinking following chemotherapy. Improve your performance at home, work and in the community. or Toll free www.ot.[facility]/patients Managing your weight after a cancer diagnosis: http://www.cancer.net/sites/cancer.net/files/weight_after_cancer_diagnosis.pdf National Coalition for Cancer Survivorship: http://www.canceradvocacy.org/ Canadian Cancer Society Cancer Survivors Network: http://csn.cancer.org/ [employer] Cancer: https://survivorship.cancer.gov/ an online tool for cancer survivors andcaregivers created by the Canadian Cancer Society and the National Cancer [place]. It provides: Information on dealing with side effects from cancer and treatment Caregivers with support and resources Practical advice about talking to friends and family about cancer Questions to ask their health care team Help understanding their rights in the workplace
--- OUTSIDE RECORDS SUMMARY | 2025-08-25 07:58 | XMS_ITS | Encounter Summary ---
Author Organization [facility] Healthcare Address [address] [place] [address] Care Team Providers Care Roof Cement And Paint Maker Helper Name Role Phone AftAmee MD PhD Unavailable [phone] Keren Watts MD Unavailable Dima Grant DO Unavailable Delmy Carrero DO Primary Care Provider [phone] Sai Sesay MD Unavailable [phone] Encounter Details Date Type Department Care Team (Late st Contact Info) Description 09/22/2024 Telephone [facility] Radiation Oncology [address] [facility] Advanced [facility] [place] [address] Gena Villa NP [address] [facility] [address] [place] [address] Social History Tobacco Use Types Packs/Day Years Used Date Smoking Tobacco: Former Cigarettes 1 18 1 963 - 1980 Passive Smoke Exposure: Never Smokeless Tobacco: Never Alcohol Use Standard Drinks/Week Comments Yes 6 (1 standard drink = 0.6 oz pur e alcohol) [facility] Utilities Answer Date Recorded In [...] How often do you attend chur or gnosticist services? More than 4 times per year 12/31/2023 Do you belong to any clubs o r organizations such as advent groups, unions, fraternal or athletic groups, or [...] and heating? 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 Not on file Not on file Not on file documented as of this encounter Plan of Treatment Not on file documented as of this encounter Visit Diagnoses Not on filedocumented in this encounter Care Teams Roof Cement And Paint Maker Helper Relationship Specialty Start Date End Date Delmy Carrero DO [address] [facility] [address] [place] [address] PCP - General Family Medicine 01/11/21 Amee Hermosillo, MD PhD [address] [place] [address] Surgeon Surgical Oncology 03/29/20 Keren Watts MD [address] [place] [address] Radiation Oncologist Radiation Oncology 03/29/20 Dima Grant DO [address] [place] [address] Medical Oncologist/Redeye Gunner Hematology and Oncology 03/29/20 Sai Sesay MD [address] [address] Consulting Physician Endocrinology Diabetes & Metabolism 05/04/24 documented as of this encounter
--- OUTSIDE RECORDS SUMMARY | 2025-08-25 07:58 | XMS_ITS | Encounter Summary ---
Author Organization [facility] Address [address] [place] [address] Phone Care Team Providers Care Plate Slitter And Inspector Name Role Phone Delmy Carrero DO Primary Care Provider [phone] Amee Hermosillo MD PhD Unavailable [phone] Keren Watts MD Unavailable Dima Grant DO Unavailable [phone] Chloe Sebastian MANAGER CONTACT Primary Care Provider + Delmy Carrero DO Primary Care Provider [phone] Sai Sesay MD Unavailable [phone] Encounter Details Date Type Department Care Team (Late st Contact Info) Description 05/10/[address] 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 Not on file Not on file Not on file documented as of this encounter Plan of Treatment Not on file documented as of this encounter Visit Diagnoses Not on filedocumented in this encounter Care Teams Plate Slitter And Inspector Relationship Specialty Start Date End Date Delmy Carrero DO PCP - General Family Medicine 01/14/20 11/08/20 Chloe Sebastian NP [address] [address] PCP - General 11/09/20 01/10/21 Delmy Carrero DO PCP - General Family Medicine 01/11/21 Aft, Amee Bustos MD PhD [address] [place] [address] Surgeon Surgical Oncology 03/29/20 Keren Watts MD [address] [address] Radiation Oncologist Radiation Oncology 03/29/20 Dima Grant DO [address] LL [facility] [address] [place] [address] Medical Oncologist/Legal Office Administrator Hematology and Oncology 03/29/20 Sai Sesay MD [address] [address] Consulting Physician Endocrinology Diabetes & Metabolism 05/04/24 documented as of this encounter
--- OUTSIDE RECORDS SUMMARY | 2025-08-25 07:58 | XMS_ITS | Clinical Summary ---
Author Organization [address] Address [address] [place] [address] Care Team Providers Care U.S. Revenue Officer Name Role Phone Unavailable Primary Care Provider Unavailabl e Allergies Active Allergy Reactions Criticality Noted Date Comments Sulfa (Sulfonamide Antibiotics) Nausea and Vomiting,Headache Low 06/10/2017 Medications fluticasone (FLONASE) 50 mcg/spray [place], SuspensionIndica tions:Chronic rhinitis, unspecified type Administer 2 [...] 8:33 AM CDT Height 162.6 cm (5' 4) 07/28/2019 8:33 AM CDT Body Mass Index 29.01 07/28/2019 8:33 AM CDT Plan of Treatment Health Maintenance Due Date Last Done Comments ZOSTER VACCINE (1 of 2) 1996 RSV VACCINE (60+ or ) (1 - 1-dose 75+ series) 2021 OSTEOPOROSIS SCREENING 06/07/2021 06/07/2016 INFLUENZA VACCINE (#1) 2025 9, 07/29/2018, 09/04/2017 DTAP/TDAP/TD VACCINES (2 - [...] ited Result - Final TEREZA CANCHOLA CLGAEL# [id number] [address] [place] [address] * (ABNORMAL) XR DEXA BONE DENSITY AXIAL 1 OR MORE SITES (06/07/2016) Anatomical Region Laterality Modality Other us Abstract Aok Provider DIAGNOSTIC IMAGING ORDERAB LES Edited Result - Final from Last 3 Months or Most Recently Relevant to Health Maintenance Insurance MEDICARE PART A AND B [employer] CHOICE
--- OUTSIDE RECORDS SUMMARY | 2025-08-25 07:58 | XMS_ITS | Encounter Summary ---
Author Organization [facility] Healthcare Address [address] [place] [address] Care Team Providers Care Kindergarten Teacher Assistant Name Role Phone Delmy Carrero DO Primary Care Provider [phone] Amee Hermosillo MD PhD Unavailable [phone] Keren Watts MD Unavailable Dima Grant DO Unavailable [phone] Chloe Sebastian CITY COUNCILMAN Primary Care Provider + Delmy Carrero DO Primary Care Provider [phone] Sai Sesay MD Unavailable [phone] Encounter Details Date Type Department Care Team (Late st Contact Info) Description 03/30/2020 Telephone [facility] Advanced Medicine Radiation Oncology [address] 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 Not on file Not on file Not on file documented as of this encounter Plan of Treatment Not on file documented as of this encounter Visit Diagnoses Not on filedocumented in this encounter Care Teams Kindergarten Teacher Assistant Relationship Specialty Start Date End Date Delmy Carrero DO PCP - General Family Medicine 01/14/20 11/08/20 Chloe Sebastian NP [address] [address] PCP - General 11/09/20 01/10/21 Delmy Carrero DO PCP - General Family Medicine 01/11/21 Aft, Amee Bustos MD PhD [address] [place] [address] Surgeon Surgical Oncology 03/29/20 Keren Watts MD [address] [address] Radiation Oncologist Radiation Oncology 03/29/20 Dima Grant DO [address] [address] Medical Oncologist/Deburrer Machine Hematology and Oncology 03/29/20 Sai Sesay MD [address] [facility] [address] [address] Consulting Physician Endocrinology Diabetes & Metabolism 05/04/24 documented as of this encounter
--- OUTSIDE RECORDS SUMMARY | 2025-08-25 07:58 | XMS_ITS | Clinical Summary ---
Author Organization [facility] Address [address] Bella: Epic Prelude ADT [place] [address] Care Team Providers Care Variety Saw Operator Name Role Phone Unavailable Primary Care Provider [...] on file Legal Sex Female 4:30 AM REFLESHER Gender Identity Not on file Sexual Orientation [...] - 1-dose 75+ series) 2021 OSTEOPOROSIS SCREENING 12/14/2024 , 06/07/2016, 06/07/2016 INFLUENZA VACCINE (#1) 2025 07/28/2019, 2017 DTAP/TDAP/TD VACCINES (2 - T d or Tdap) 03/07/2027 03/07/2017 COLORECTAL SCREENING Discontinued 10/27/2017, 10/27/2017, 10/27/2017, Additional history exists Colorectal Cancer Screening Discontinued FIT-DNA Q 3 years Discontinued FIT/FOBT Q 1 year Discontinued Flex Sig/CT Colonography Q 5 years Discontinued Procedures Procedure Name Priority Date/Time Associated Diagnosis Comments ENDOSCOPY, COLON, SCREENING 10/27/2017 12:00 AM REFLESHER XR DEXA BONE DENSITY AXIAL 1 OR MORE SITES 06/07/2016 12:00 AM CDT from Last 3 Months or Most Recently Relevant to Health Maintenance Results * ENDOSCOPY, COLON, SCREENING (10/27/2017 12:00 AM REFLESHER) us Abstract Aok Provider GI PROCEDURE ORDERABLES Ed ited Result - Final * XR DEXA BONE DENSITY AXIAL 1 OR MORE SITES (06/07/2016 12:00 AM CDT) Anatomical Region Laterality Modality Other us Abstract Aok Provider DIAGNOSTIC IMAGING ORDERAB LES Edited Result - Final from Last 3 Months or Most Recently Relevant to Health Maintenance
[2025-08-25 19:46] LABS: Alanine Aminotransferase 29 U/L (6-35); Albumin Level 4.0 g/dL (3.5-5.1); Alkaline Phosphatase 97 U/L (38-126); Anion Gap 7 mmol/L (4-12); Aspartate Amino Transferase 47 U/L (14-36); Bilirubin,Total 0.3 mg/dL (0.2-1.3); Blood Urea Nitrogen 21 mg/dL (7-17); Calcium 9.2 mg/dL (8.4-10.2); Carbon Dioxide 28 mmol/L (22-30); Chloride 102 mmol/L (98-107); Cholesterol 175 mg/dL (0-200); Estimated Glomerular Filt Rate > 60; Glucose 76 mg/dL (65-110); HDL Direct 49 mg/dL; Potassium 4.5 mmol/L (3.4-5.0); Sodium 137 mmol/L (137-145); Total Protein 6.8 g/dL (6.3-8.2); Triglycerides 71 mg/dL (<150)
[2025-08-25 19:48] LABS: Hematocrit 40.0 % (37.0-47.0); Hemoglobin 12.5 g/dL (12.0-15.0); Mean Corpuscular HGB Conc 31.3 g/dl (32-36); Mean Corpuscular Hemoglobin 30.8 pg (26-34); Mean Corpuscular Volume 98.5 fl (80-100); Platelet Count Result 272 k/mm3 (150-375); Red Blood Count 4.06 M/mm3 (4.2-5.4); White Blood Count 5.9 K/mm3 (4.5-10.0)
[2025-08-25 20:23] LABS: Thyroid Stimulating Hormone 2.590 uIU/mL (0.465-4.680)
[2025-08-25 20:38] LABS: Free T4 Free Thyroxine 1.40 ng/dL (0.78-2.19)
== END 2025-08-25 07:54 | disposition home or self-care (01) ==
LOC: ANHGOSHLAB 07:54
PROVIDERS: PCP Family Medicine; Visit Provider Nurse Practitioner
DX: E78.5 Hyperlipidemia, unspecified (principal); C73 Malignant neoplasm of thyroid gland; I10 Essential (primary) hypertension; E55.9 Vitamin D deficiency, unspecified
CPT/HCPCS: 36415; 80053; 80061; 82306; 84439; 84443; 85027

== ENCOUNTER 2025-10-28 08:55 | Outpatient (CLI) | payer MEDICARE, SELFPAY ==
--- NOTE | ~2025-10-28 | DEXA_ITS ---
Bone Density Report Name: CAROLINA CONRAD Age: 80 Sex: Female Ethnicity: White Date of : 1945 Indication: osteopenia; monitoring treatment; parental hip fracture; height loss; prior fracture; cancer; Referring Provider: ESEQUIEL, ELMER Bustos Study: Bone densitometry was performed. Exam Date: October 28, 2025 Accession number: [id number] Bone Density: Region BMD T-score Z-score Classification AP Spine(L1, L2, L3) 0.821 -1.8 0.8 Osteopenia Femoral Neck (Left) 0.604 -2.2 0.1 Osteopenia Total Hip (Left) 0.797 -1.2 0.8 Osteopenia Femoral Neck (Right) 0.619 -2.1 0.2 Osteopenia Total Hip (Right) 0.831 -0.9 1.1 Normal Total Hip Mean 0.814 -1.1 1.0 Osteopenia World Health Organization criteria for BMD impression classify patients as: Normal (T-score at or above -1.0), Osteopenia (T-score between -1.0 and -2.5), or Osteoporosis (T-score at or below -2.5). 10-year Fracture Risk: FRAX not reported because: Treated for osteoporosis Previous Exams: Region Exam Age BMD T-score BMD Change BMD Change Date g/cm2 vs Baseline vs Previous AP Spine (L1-L3) 10/28/2025 80 0.821 -1.8 -0.040 (-4.6%) -0.014 (-1.7%) 08/27/2024 79 0.835 -1.7 -0.025 (-3.0%) 0.014 (1.7%) 04/05/2022 76 0.821 -1.8 -0.040 (-4.6%) -0.040 (-4.6%) 12/14/2019 74 0.861 -1.4 Total Hip(Left) 10/28/2025 80 0.797 -1.2 0.016 (2.1%)# -0.042 (-5.0%) 08/27/2024 79 0.839 -0.8 0.058 (7.4%)# 0.110 (15.1%)* 04/05/2022 76 0.729 -1.7 -0.052 (-6.6%) -0.052 (-6.6%) 12/14/2019 74 0.781 -1.3 Total Hip(Right) 10/28/2025 80 0.831 -0.9 0.074 (9.8%)# -0.019 (-2.2%) 08/27/2024 79 0.849 -0.8 0.093 (12.3%)# 0.173 (25.5%)* 04/05/2022 76 0.677 -2.2 -0.080 (-10.5% -0.080 (-10.5% 12/14/2019 74 0.756 -1.5 *Denotes significance at 95% confidence level, LSC for AP Spine = 0.022 g/cm2, LSC for Total Hip = 0.027 g/cm2 # Denotes dissimilar scan types or analysis methods Clinical Information Provided by Patient: Has had a low trauma fracture Parent has had a hip fracture Is being treated for osteoporosis Has used the following medications: Vitamin D, Calcium Has the following medical conditions: Cancer Patient maximum height was 64 Menopause Age: 46 No regular weight bearing exercise Does not regularly consume dairy products Drinks caffeinated beverages Onset of menses at age 13 Number of children 1 Impression: The patient has low bone mass, based on the Left Femoral Neck T-score. The patient has risk factors, including: parental hip fracture, previous fracture. The BMD for the Total Hip(Left) decreased, changing by -5.0% since the last DXA exam. Discussion: SIGNIFICANT BONE LOSS OBSERVED. Adherence to therapy (including calcium and vitamin D intake) should be assessed. If compliance is not a factor, review management and exclusion of secondary causes of bone loss. It is important to ask patients whether they are taking their medications and to encourage continued and appropriate compliance with their osteoporosis therapies to reduce fracture risk. It is also important to review their risk factors and encourage appropriate calcium and vitamin D intakes, exercise, fall prevention and other lifestyle measures. Follow-Up: Consider a repeat BMD and Vertebral Fracture Assessment (VFA) exam in 2 years or sooner if medically necessary, to reassess this patient's status. Reported by: EMILY on 10/28/2025 9:39:00 AM. Reviewed, dictated and finalized at location A.
--- OUTSIDE RECORDS SUMMARY | 2025-10-28 09:09 | XMS_ITS | Clinical Summary ---
Author Organization [facility] Address [address] [facility] Attn: Epic Prelude ADT [place] [address] Care Team Providers Care Medical Attendant Name Role Phone Unavailable Primary Care Provider [...] on file Legal Sex Female 4:30 AM RELIGIOUS EDUCATION COORDINATOR Gender Identity Not on file Sexual Orientation [...] Comments ENDOSCOPY, COLON, SCREENING 10/27/2017 12:00 AM RELIGIOUS EDUCATION COORDINATOR XR DEXA BONE DENSITY AXIAL 1 OR MORE SITES 06/07/2016 12:00 AM CDT from Last 3 Months or Most Recently Relevant to Health Maintenance Results * ENDOSCOPY, COLON, SCREENING (10/27/2017 12:00 AM RELIGIOUS EDUCATION COORDINATOR) us Abstract Aok Provider GI PROCEDURE ORDERABLES Ed ited Result - Final * XR DEXA BONE DENSITY AXIAL 1 OR MORE SITES (06/07/2016 12:00 AM CDT) Anatomical Region Laterality Modality Other us Abstract Aok Provider DIAGNOSTIC IMAGING ORDERAB LES Edited Result - Final from Last 3 Months or Most Recently Relevant to Health Maintenance
--- OUTSIDE RECORDS SUMMARY | 2025-10-28 09:09 | XMS_ITS | Clinical Summary ---
Author Organization [facility] Address [address] [place] [address] Care Team Providers Care Salicylic Acid Blender Name Role Phone NormatAmee MD PhD Unavailable [phone] Keren Watts MD Unavailable Dima Grant DO Unavailable [phone] Delmy Carrero DO Primary Care Provider [phone] Sai Sesay MD Unavailable [phone] Allergies Active Allergy Reactions Criticality Noted Date Comments Gluten Diarrhea Low 03/16/2025 Nitrofurantoin Diarrhea High 03/16/2025 stomach cramps Nitrofurantoin Monohyd/M-Cryst Diarrhea,Fatigue Low 06/20/2023 Sulfa (Sulfonamide [...] 2 (two) times a day Active vit C,K-Jt-hgpxt-lut ein-zeaxan (PreserVision AREDS-2) 250-90-40-1 mg capsuleIndicatio ns:supplement [...] Active Additional Information Patient not taking.Reported on 10/17/2025 ibuprofen (ADVIL,MOTRIN) 600 mg tablet Take 1 [...] Date Post-surgical hypothyroidism 10/11/2024 Assessment & Plan (10/17/2025 10:34 AM MAORI PHYSIOTHERAPIST): Continue current levothyroxine dose. Will check thyroid function test and adjust levothyroxine dose accordingly. TSH goal normal given older age, osteoporosis, and breast cancer hx. Assessment & Plan (10/11/2024 1:29 PM MAORI PHYSIOTHERAPIST): Continue current levothyroxine dose. Will check thyroid function test and adjust levothyroxine dose accordingly. TSH goal lower normal Full incontinence of feces 10/11/2024 Prolapse of anterior vaginal wall 06/16/2024 S/P partial thyroidectomy 04/27/2024 Papillary thyroid carcinoma 04/07/2024 Assessment & Plan (10/17/2025 10:34 AM MAORI PHYSIOTHERAPIST): s/p Left thyroidectomy on 04/21/[address] Akhtar. PET showed no metastases. Low risk, no BAZZI given Neck US negative today. Repeat in 1 year. Assessment & Plan (10/11/2024 1:30 PM MAORI PHYSIOTHERAPIST): s/p Left thyroidectomy on 04/21/[address] Akhtar. PET showed no metastases. Low risk, no BAZZI given Follow up neck LIZETH Thyroid cancer 04/06/2024 Thyroid nodule 03/16/2024 Cystocele, midline 02/25/2024 Nasal obstruction 01/08/2024 Facial pain 01/08/2024 Closed fracture of nasal bones 01/06/2024 Fall, initial encounter 12/30/2023 Osteoporosis without current pathological fractu re 04/10/2022 Assessment & Plan (10/17/2025 10:33 AM MAORI PHYSIOTHERAPIST): On prolia managed by Dr. Grant (oncology). Pending repeat DEXA scan. Assessment & Plan (10/11/2024 1:34 PM MAORI PHYSIOTHERAPIST): On Prolia History of breast cancer 09/05/2021 Feeling of incomplete bladder emptying Assessment & Plan (01/13/2021 1:58 PM MAORI PHYSIOTHERAPIST): -PVR 30 PLAN: -Rock back and forth and squeeze pelvic muscles at end of voiding. Urge incontinence 01/13/2021 Assessment & Plan (01/13/2021 2:07 PM MAORI PHYSIOTHERAPIST): -Avoid caffeine and large amounts of fluid [...] 01/13/2021 Assessment & Plan (01/13/2021 2:08 PM MAORI PHYSIOTHERAPIST): -Refer to handout on bladder irritants and try to avoid. 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, estrogen receptor positive 01/24/2020 Cancer Staging:Pathologic stage from 02/22/2020:Stage IA(pT1b, pN0(sn), cM0, G3, ER+, MO-, HER2-) - Signed by Keren Watts MD on 03/29/2020 Clinical stage from 03/17/2020:Stage IB(cT1b, cN0(sn), cM0, G3, ER+, MO-, HER2-) - Signed by Dima Grant DO on 03/19/2020 Encounters Date Type Department Care Team Description 10/17/2025 11:15 AM MAORI PHYSIOTHERAPIST Lab [facility] - Lab Collection [address] [facility] Floor 5 [place] [address] Post-surgical hypothyroidism; Papillary thyroid carcinoma (HCC) 10/17/2025 10:40 AM MAORI PHYSIOTHERAPIST Office Visit [facility] Endocrinology Metabolism and Lipid [address] [facility] Floor 1, [address] [place] [address] Sai Sesay MD Papillary thyroid carcinoma (HCC) (Primary Dx); Osteoporosis without current pathological fracture, unspecified osteoporosis type; Post-surgical hypothyroidism 10/17/2025 8:51 AM MAORI PHYSIOTHERAPIST - 10/17/2025 11:59 PM MAORI PHYSIOTHERAPIST Hospital Encounter [facility] [address] [place] [address] Papillary thyroid carcinoma (HCC) Discharge Disposition: Discharge to home or self care 10/17/2025 Results Follow-Up [facility] Endocrinology Metabolism and Lipid [address] [facility] 13th [place] [address] [place] [address] Sai Sesay MD T4, free, TSH 09/21/2025 Telephone [facility] On[facility] [address] [place] [address] [address] [place] [address] Ricco, Olena, SALES BROKER 09/08/2025 Orders Only [facility] Oncology [address] [place] [address] [address] [place] [phone] Provider, MD Elpidio 08/26/2025 11:00 AM CDT Office Visit [facility] G[facility]ology [address] [facility] [address] [place] [address] Cecilia Perez, YOSSI Diarrhea, unspecified type (Primary Dx) 08/18/2025 Documentation [facility] Scheduling [facility] [place] [address] Bonnie Gaona IM DOC 08/17/2025 10:15 AM CDT Infusion [facility] at [address] [place] [phone] Osteoporosis without current pathological fracture, unspecified osteoporosis type (Primary Dx); Malignant neoplasm of lower-outer quadrant of left breast of female, estrogen receptor positive (HCC) 08/17/2025 9:45 AM CDT Lab [facility] at [address] [address] Malignant neoplasm of lower-outer quadrant of left breast of female, estrogen receptor positive (HCC) from Last 3 Months Immunizations Immunization Administration Dates Next Due INFLUENZA [id number] 07/29/2018 Influenza, Quadrivalent, Hig h Dose, Preservative [...] Breast cancer Father's Sister Aunt - Jesica Cheema Cancer Father's Sister Aunt - Jesica Cheema Cancer Mother Mother - Marifer Mcneill o Colon cancer Mother Mother - Marifer Mcneill [...] oz pur e alcohol) [facility] Utilities Answer Date Recorded In the past 12 months has [employer] gas, oil, or water company threatened to [...] How often do you attend chur or buddhism services? More than 4 times per year 12/31/2023 Do you belong to any clubs o r organizations such as latter day groups, unions, fraternal or athletic groups, or [...] heating? Not hard at all 12/31/2023 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 Not on file Not on file Not on file Obstetrics History Para Term AB IAB SAB Ectopic Multiple Livin g Live Births 1 1 1 1 1 Date Outcome GA Total Labor Labor/2nd/3rd Weight Sex Type Anes PTL Merna A1 A5 Name Clin 1981 Term F Vag-S pont Living Last Filed Vital Signs Vital Sign Reading Time Taken Comments Blood Pressure 145/90 10/17/2025 10:05 AM MAORI PHYSIOTHERAPIST Pulse 79 10/17/2025 10:05 AM MAORI PHYSIOTHERAPIST Temperature 36.4 C (97.6 F) 10/17/2025 10:05 AM MAORI PHYSIOTHERAPIST Respiratory Rate 17 10/17/2025 10:05 AM MAORI PHYSIOTHERAPIST Oxygen Saturation 98% 10/17/2025 10:05 AM MAORI PHYSIOTHERAPIST Inhaled Oxygen Concentration - - Weight 69.9 kg (154 lb 3.2 oz) 10/17/2025 10:05 AM MAORI PHYSIOTHERAPIST Height 160 cm (5' 2.99) 10/17/2025 10:05 AM MAORI PHYSIOTHERAPIST Body Mass Index 27.32 10/17/2025 10:05 AM MAORI PHYSIOTHERAPIST Plan of Treatment Health Maintenance Due Date Last Done Comments Depression Screening 1945 Hepatitis C Screening 1945 Hepatitis B Screening 1964 Well Visit 65+ 2011 Covid-19 Vaccine (2024-2 6 season) 2025 11/14/2023, 07/13/2021, 01/24/2021, Additional [...] Procedure Name Priority Date/Time Associated Diagnosis Comments TSH Routine 10/17/2025 11:31 AM MAORI PHYSIOTHERAPIST Post-surgical hypothyroidism Papillary thyroid carcinoma (HCC) T4, FREE Routine 10/17/2025 11:31 AM MAORI PHYSIOTHERAPIST Post-surgical hypothyroidism Papillary thyroid carcinoma (HCC) US SOFT TISSUE HEAD NECK Schedule Routine, Read Routine (OP Routine) 10/17/2025 9:38 AM MAORI PHYSIOTHERAPIST Papillary thyroid carcinoma (HCC) CBC WITH AUTO DIFFERENTIAL Routine 08/25/2025 3:24 PM CDT EGFR Routine 08/17/2025 8:54 AM CDT Malignant [...] Recently Relevant to Health Maintenance Results * TSH (10/17/2025 11:31 AM MAORI PHYSIOTHERAPIST) Thyroid Stimulating Hormone 2.96 0.30 - 4.20 mcIUnit/mL Blood 10/17/2025 11:3 1 AM MAORI PHYSIOTHERAPIST 10/17/2025 11:33 AM MAORI PHYSIOTHERAPIST us Lexi Velazquez MD LAB BLOOD ORDERABLES Final Re sult [facility] Department [place] [address] * T4, free (10/17/2025 11:31 AM MAORI PHYSIOTHERAPIST) Free T4 1.17 0.90 - 1.70 ng/dL Blood 10/17/2025 11:3 1 AM MAORI PHYSIOTHERAPIST 10/17/2025 11:33 AM MAORI PHYSIOTHERAPIST Lexi Velazquez MD LAB BLOOD ORDERABLES Final Re sult MANDY [facility] Department [place] [address] * US Head Neck Soft Tissue (10/17/2025 9:38 AM MAORI PHYSIOTHERAPIST) Anatomical Region Laterality Modality Head and Neck N/A Ultrasound 10/17/2025 9:44 AM MAORI PHYSIOTHERAPIST Impressions 10/17/2025 9:45 AM MAORI PHYSIOTHERAPIST Postsurgical changes of left hemithyroidectomy without evidence of tumor recurrence. No cervical lymphadenopathy. No suspicious right thyroid nodule. Dictated by: Virginie Lee MD The radiology attending physician has personally reviewed this study, and had reviewed and/or edited this written report and agrees with it. Electronically signed by: Marcial Mayorga MD Narrative 10/17/2025 9:45 AM MAORI PHYSIOTHERAPIST EXAMINATION: THYROID SONOGRAM HISTORY: 80-year-old female with history of papillary thyroid carcinoma status post left hemithyroidectomy 04/21/2024 Prior Ultrasound: 10/08/2024 FINDINGS: Postsurgical changes of left hemithyroidectomy. No evidence of tumor recurrence in the thyroidectomy bed. Scattered benign appearing lymph nodes within the central and lateral compartments of the neck. The remaining thyroid is normal in size. Size right lobe: 3.1 cm craniocaudal, 1.6 cm transverse, 2.1 cm AP. Size isthmus: 0.2 cm AP. Scattered mixed solid and cystic subcentimeter nodules throughout the right thyroid which require further follow-up. Estimated total number of nodules >/= 1 cm: 0 Number of spongiform nodules >/= 2 cm not described below (TR1): 0 Number of mixed cystic and solid nodules >/= 1.5 cm not described below (TR2): 0 Procedure Note Marcial Mayorga MD - 10/17/2025 EXAMINATION: THYROID SONOGRAM HISTORY: 80-year-old female with history of papillary thyroid carcinoma status post left hemithyroidectomy 04/21/2024 Prior Ultrasound: 10/08/2024 FINDINGS: Postsurgical changes of left hemithyroidectomy. No evidence of tumor recurrence in the thyroidectomy bed. Scattered benign appearing lymph nodes within the central and lateral compartments of the neck. The remaining thyroid is normal in size. Size right lobe: 3.1 cm craniocaudal, 1.6 cm transverse, 2.1 cm AP. Size isthmus: 0.2 cm AP. Scattered mixed solid and cystic subcentimeter nodules throughout the right thyroid which require further follow-up. Estimated total number of nodules >/= 1 cm: 0 Number of spongiform nodules >/= 2 cm not described below (TR1): 0 Number of mixed cystic and solid nodules >/= 1.5 cm not described below (TR2): 0 IMPRESSION: Postsurgical changes of left hemithyroidectomy without evidence of tumor recurrence. No cervical lymphadenopathy. No suspicious right thyroid nodule. Dictated by: Virginie Lee MD The radiology attending physician has personally reviewed this study, and had reviewed and/or edited this written report and agrees with it. Electronically signed by: Marcial Mayorga MD Sai Sesay MD IMG US PROCEDURES Final Result * CBC with auto differential (08/25/2025 3:24 PM CDT) Blood us Historical Provider LAB BLOOD ORDERABLES Patricia palma Result EXTERNAL LAB * eGFR (08/17/2025 8:54 AM CDT) eGFR [...] was last reviewed 2021. Testing performed by: [address] [address] Blood 08/17/2025 8:54 AM CDT 08/17/2025 9:01 AM CDT Dima Grant DO LAB BLOOD ORDERABLES Final R esult Performing Organization Address [facility] Co de Phone Number [address] [place] [address] * Phosphorus (08/17/2025 8:54 AM CDT) Phosphorus, pl 3.8 2.3 - 4.5 mg/dL Comment:Testing performed by : [address] [address] Blood 08/17/2025 8:54 AM CDT 08/17/2025 9:01 AM CDT Dima Grant DO LAB BLOOD ORDERABLES Final R esult Performing Organization Address City/[facility] Co de Phone Number [address] [place] [address] * Comprehensive metabolic panel (08/17/2025 8:54 AM CDT) Sodium 139 135 - 145 mmol/L Comment:Testing performed by : [address] [address] Potassium, pl 4.2 3.3 - 4.9 mmol/L MANDY Comment:Testing performed by : [address] [address] Chloride 102 97 - 110 mmol/L MANDY Comment:Testing performed by : [address] [address] CO2 27 22 - 32 mmol/L MANDY Comment:Testing performed by : [address] [address] Anion gap 10 2 - 15 mmol/L MANDY Comment:Testing performed by : [address] [address] BUN 19 6 - 25 mg/dL [facility] Comment:Testing performed by : [address], [place]., [address] Creatinine 0.70 0.60 - 1.10 mg/dL MANDY Comment:Testing performed by : [address] [address] Glucose 88 70 - 199 mg/dL MANDY [...] was last revised 2022. Testing performed by: [address] [address] Calcium 9.7 8.5 - 10.3 mg/dL MANDY Comment:Testing performed by : [address] [address] Bilirubin, total 0.3 0.1 - 1.2 mg/dL MANDY Comment:Testing performed by : [address] [address] Protein, pl 6.8 6.5 - 8.5 g/dL MANDY Comment:Testing performed by : [address] [address] Albumin 4.2 3.5 - 5.0 g/dL CERALIYAH BAR Comment:Testing performed by : [facility], [address] [place] [address]., [address] Alk phos 101 40 - 130 Units/L MANDY BAR Comment:Testing performed by : [address] [address] ALT 23 7 - 45 Units/L MANDY BAR Comment:Testing performed by : [facility], [address] [place] [address]., [address] AST 29 10 - 45 Units/L MANDY BAR Comment:Testing performed by : [address] [address] Blood 08/17/2025 8:54 AM CDT 08/17/2025 9:01 AM CDT Dima Grant DO LAB BLOOD ORDERABLES Final R esult Performing Organization Address City/State/[facility] Co de Phone Number MANDY [address] [facility] Department [place] [address] * Screening Mammogram Bilateral W Rd (03/16/2025 11:31 AM CDT) Anatomical Region Laterality Modality Breast Bilateral Mammography Narrative 03/17/2025 1:56 PM CDT Mammogram Technique: Bilateral Digital Breast Tomosynthesis, Bilateral C-view 2D Screening mammogram. Views obtained: bilateral craniocaudal and bilateral mediolateral oblique. Computer Aided Detection was performed. Mammogram Findings: The present examination has been compared to prior imaging studies performed at [facility] on 10/21/2024, and at [facility] on 03/10/2023 and 03/12/2024. There are [...] compared to prior imaging studies performed at [facility], [facility]12[facility]24. There are scattered [...] Body N/A Radiographic Patricia ging Historical Provider IMG DXA PROCEDURES Final Result from Last 3 Months or Most Recently Relevant to Health Maintenance Insurance MEDICARE [facility] MEDICARE COMMERCIAL [facility] MEDICARE [facility] Advance Directives For more information, please contact: [phone] Documents on File Type Date Recorded Patient Flight Mechanic Daisy alfonso ADVANCE DIRECTIVE 01/08/2024 1:08 PM * Full Code (Latest Code Status on File) Date Activated Date Inactivated Comments 04/21/2024 1:01 PM 04/22/2024 2:24 PM * Full Code Date Activated Date Inactivated Comments 12/31/2023 12:25 AM 12/31/2023 6:11 PM Care Teams Salicylic Acid Blender Relationship Specialty Start Date End Date Delmy Carrero DO [address] [place] [address] PCP - General Family Medicine 01/11/21 Aft, Amee Bustos MD PhD [address] [place] [address] Surgeon Surgical Oncology 03/29/20 Keren Watts MD [address] [place] [address] Radiation Oncologist Radiation Oncology 03/29/20 Dima Grant DO [address] [place] [address] Medical Oncologist/Sales Project Manager Hematology and Oncology 03/29/20 Sai Sesay MD [address] [address] Consulting Physician Endocrinology Diabetes & Metabolism 05/04/24
--- OUTSIDE RECORDS SUMMARY | 2025-10-28 09:09 | XMS_ITS | Encounter Summary ---
Author Organization [facility] Address [address] [place] [address] Care Team Providers Care Blackjack Dealer Name Role Phone AftAmee MD PhD Unavailable Keren Watts MD Unavailable Dima Gratn DO Unavailable [phone] Delmy Carrero DO Primary Care Provider [phone] Sai Sesay MD Unavailable [phone] Encounter Details Date Type Department Care Team (Late st Contact Info) Description 09/22/[address] [facility] Radiation Oncology [address] [facility] Advanced Medicine [facility] [place] [address] Gena Villa NP [address] [facility] [address] [place] [address] Social History Tobacco Use Types Packs/Day Years Used Date Smoking Tobacco: Former Cigarettes 1 18 1 963 - 1980 Passive Smoke Exposure: Never Smokeless Tobacco: Never Alcohol Use Standard Drinks/Week Comments Yes 6 (1 standard drink = 0.6 oz pur e alcohol) [facility] Utilities Answer Date Recorded In the [...] How often do you attend chur or nondenominational services? More than 4 times per year [...] and heating? 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 Not on file Not on file Not on file documented as of this encounter Plan of Treatment Not on file documented as of this encounter Visit Diagnoses Not on filedocumented in this encounter Care Teams Blackjack Dealer Relationship Specialty Start Date End Date Delmy Carrero DO [address] [facility] [address] [place] [address] PCP - General Family Medicine 01/11/21 Amee Hermosillo, MD PhD [address] [place] [address] Surgeon Surgical Oncology 03/29/20 Keren Watts MD [address] [place] [address] Radiation Oncologist Radiation Oncology 03/29/20 Dima Grant DO [address] [place] [address] Medical Oncologist/Office Admin Hematology and Oncology 03/29/20 Sai Sesay MD [address] [address] Consulting Physician Endocrinology Diabetes & Metabolism 05/04/24 documented as of this encounter
--- OUTSIDE RECORDS SUMMARY | 2025-10-28 09:09 | XMS_ITS ---
Author Organization [facility] Address [address] [place] [address] Care Team Providers Care Operating Room Aide Name Role Phone NormatAmee MD PhD Unavailable [phone] Keren Watts MD Unavailable Dima Grant DO Unavailable [phone] Delmy Carrero DO Primary Care Provider [phone] Sai Sesay MD Unavailable [phone] Active Problems Problem Noted Date Diagnosed Date Post-surgical hypothyroidism 10/11/2024 Assessment & Plan (10/17/2025 10:34 AM CARDIAC NURSE PRACTITIONER): Continue current levothyroxine dose. Will check thyroid function test and adjust levothyroxine dose accordingly. TSH goal normal given older age, osteoporosis, and breast cancer hx. Assessment & Plan (10/11/2024 1:29 PM CARDIAC NURSE PRACTITIONER): Continue current levothyroxine dose. Will check thyroid function test and adjust levothyroxine dose accordingly. TSH goal lower normal Full incontinence of feces 10/11/2024 Prolapse of anterior vaginal wall 06/16/2024 S/P partial thyroidectomy 04/27/2024 Papillary thyroid carcinoma 04/07/2024 Assessment & Plan (10/17/2025 10:34 AM CARDIAC NURSE PRACTITIONER): s/p Left thyroidectomy on 04/21/[address] Akhtar. PET showed no metastases. Low risk, no BAZZI given Neck US negative today. Repeat in 1 year. Assessment & Plan (10/11/2024 1:30 PM CARDIAC NURSE PRACTITIONER): s/p Left thyroidectomy on 04/21/[address] Akhtar. PET showed no metastases. Low risk, no BAZZI given Follow up neck LIZETH Thyroid cancer 04/06/2024 Thyroid nodule 03/16/2024 Cystocele, midline 02/25/2024 Nasal obstruction 01/08/2024 Facial pain 01/08/2024 Closed fracture of nasal bones 01/06/2024 Fall, initial encounter 12/30/2023 Osteoporosis without current pathological fractu re 04/10/2022 Assessment & Plan (10/17/2025 10:33 AM CARDIAC NURSE PRACTITIONER): On prolia managed by Dr. Grant (oncology). Pending repeat DEXA scan. Assessment & Plan (10/11/2024 1:34 PM CARDIAC NURSE PRACTITIONER): On Prolia History of breast cancer 09/05/2021 Feeling of incomplete bladder emptying Assessment & Plan (01/13/2021 1:58 PM CARDIAC NURSE PRACTITIONER): -PVR 30 PLAN: -Rock back and forth and squeeze pelvic muscles at end of voiding. Urge incontinence 01/13/2021 Assessment & Plan (01/13/2021 2:07 PM CARDIAC NURSE PRACTITIONER): -Avoid caffeine and large amounts of fluid [...] 01/13/2021 Assessment & Plan (01/13/2021 2:08 PM CARDIAC NURSE PRACTITIONER): -Refer to handout on bladder irritants and try to avoid. 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, estrogen receptor positive 01/24/2020 Cancer Staging:Pathologic stage from 02/22/2020:Stage IA(pT1b, pN0(sn), cM0, G3, ER+, AK-, HER2-) - Signed by Kerne Watts MD on 03/29/2020 Clinical stage from 03/17/2020:Stage IB(cT1b, cN0(sn), cM0, G3, ER+, AK-, HER2-) - Signed by Dima Grant DO [...] from the original note were not included. [place] [id number] [facility], [address] [place] [address] This Survivorship Care Plan is a cancer [...] Information: Primary Care Physician Delmy Carrero DO [phone] Surgeon Amee Hermosillo MD PhD [phone] Radiation Oncologist Keren Watts MD [phone] Medical Oncologist Dima Grant DO [phone] Plastic Surgeon Other Providers Treatment Summary Cancer [...] Stage IA (pT1b, pN0(sn), cM0, G3, ER+, AK-, HER2-) - Signed by Keren Watts MD on 03/29/2020 - Clinical stage from 03/17/2020: Stage IB (cT1b, cN0(sn), cM0, G3, ER+, AK-, HER2-) - Signed by Dima Grant DO [...] Date 04/18/2020 End Date 08/01/2020 Provider Dima Grant, DO Chemotherapy cyclophosphamide (CYTOXAN) 1,122 mg in [...] breast cancer could run in the family: Christianity heritage History of ovarian cancer in the [...] for the first year and then yearly Amee Hermosillo MD PhD Yearly Delmy Carrero After 5 years, annual follow up Cancer Surveillance or other Recommended Tests Coordinating Provider Test How Often Dima Grant DO - Year 1-5, Delmy Carrero DO - After year 5 Mammogram for remaining breast(s) Yearly Dima Grant DO Cardiac monitoring Every 3 months while on Herceptin EX CHEF: No care service desk team lead to display Pap/pelvic exam (woman only) As indicated by provider Medical Oncologist: Dima Grant DO Bone Density Every 2 years if [...] Help learning to eat healthier, call the commercial insulator Niecy Costello at: [phone] Have an active lifestyle, strive for 30 [...] man. Resources you may be interested in: [facility] http://www.[facility]/ [facility] & Cancer Information Center 1st floor of [facility] [phone]. Computer access, educational material, counseling services (FREE) Cancer Resources: www.cancer.net [place] Disabilities Act: The U.S. Department of Justice provides information about the Americans with Disabilities Act (ADA). Toll free number http://www.ada.gov/ Occupational Therapy at [facility]. Improve memory and thinking following chemotherapy. Improve your performance at home, work and in the community. or Toll free www.ot.[facility]/patients Managing your weight after a cancer diagnosis: http://www.cancer.net/sites/cancer.net/files/weight_after_cancer_diagnosis.pdf National Coalition for Cancer Survivorship: http://www.canceradvocacy.org/ [place] Cancer Society Cancer Survivors Network: http://csn.cancer.org/ [employer] Beyond Cancer: https://survivorship.cancer.gov/ an online tool for cancer survivors andcaregivers created by the [place] Cancer Society and the National Cancer [place]. It provides: Information on dealing with side effects from cancer and treatment Caregivers with support and resources Practical advice about talking to friends and family about cancer Questions to ask their health care team Help understanding their rights in the workplace
--- OUTSIDE RECORDS SUMMARY | 2025-10-28 09:09 | XMS_ITS | Encounter Summary ---
Author Organization [facility] Address [address] [place] [address] Phone Care Team Providers Care Sequins Winder Name Role Phone Delmy Carrero DO Primary Care Provider [phone] Amee Hermosillo MD PhD Unavailable [phone] Keren Watts MD Unavailable Dima Grant DO Unavailable [phone] Chloe Sebastian WINTER SPORTS MANAGER Primary Care Provider + Delmy Carrero DO Primary Care Provider [phone] Sai Sesay MD Unavailable [phone] Encounter Details Date Type Department Care Team (Late st Contact Info) Description 05/10/[address] 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 Not on file Not on file Not on file documented as of this encounter Plan of Treatment Not on file documented as of this encounter Visit Diagnoses Not on filedocumented in this encounter Care Teams Sequins Winder Relationship Specialty Start Date End Date Delmy Carrero DO PCP - General Family Medicine 01/14/20 11/08/20 Chloe Sebastian NP [address] [address] PCP - General 11/09/20 01/10/21 Delmy Carrero DO PCP - General Family Medicine 01/11/21 Aft, Amee Bustos MD PhD [address] [place] [address] Surgeon Surgical Oncology 03/29/20 Keren Watts MD [address] [address] Radiation Oncologist Radiation Oncology 03/29/20 Dima Grant DO [address] [facility] [address] [place] [address] Medical Oncologist/Physical Therapy Nurse Hematology and Oncology 03/29/20 Sai Sesay MD [address] [address] Consulting Physician Endocrinology Diabetes & Metabolism 05/04/24 documented as of this encounter
--- OUTSIDE RECORDS SUMMARY | 2025-10-28 09:09 | XMS_ITS | Clinical Summary ---
Author Organization [address] Address [address] [place] [address] Care Team Providers Care Staffing Assistant Name Role Phone Unavailable Primary Care Provider Unavailabl e Allergies Active Allergy Reactions Criticality Noted Date Comments Sulfa (Sulfonamide Antibiotics) Nausea and Vomiting,Headache Low 06/10/2017 Medications fluticasone (FLONASE) 50 mcg/spray [place], SuspensionIndica tions:Chronic rhinitis, unspecified type Administer 2 [...] Years Used Date Smoking Tobacco: Former Cigarettes 0 Q uit: 07/15/1981 Smokeless Tobacco: Never Alcohol [...] Ed ited Result - Final TEREZA BERNARD# [id number] [address] [place] [address] * (ABNORMAL) XR DEXA BONE DENSITY AXIAL 1 OR MORE SITES (06/07/2016) Anatomical Region Laterality Modality Other us Abstract Aok Provider DIAGNOSTIC IMAGING ORDERAB LES Edited Result - Final from Last 3 Months or Most Recently Relevant to Health Maintenance Insurance MEDICARE PART A AND B HEALTH CHOICE
--- OUTSIDE RECORDS SUMMARY | 2025-10-28 09:09 | XMS_ITS | Encounter Summary ---
Author Organization [facility] Address [address] [place] [address] Care Team Providers Care Psychiatry Resident Name Role Phone Delmy Carrero DO Primary Care Provider [phone] Amee Hermosillo MD PhD Unavailable [phone] Keren Watts MD Unavailable Dima Grant DO Unavailable [phone] Chloe Sebastian INVESTIGATOR OPERATOR Primary Care Provider + Delmy Carrero DO Primary Care Provider [phone] Sai Sesay MD Unavailable Encounter Details Date Type Department Care Team (Late st Contact Info) Description 03/30/2020 Telephone [facility] Advanced Medicine Radiation Oncology [address] [facility] [place] [address] Gina Evans RN Social History [...] on file Legal 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 Gender Identity Not on file Sexual Orientation Not on file 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 Not on file Not on file Not on file documented as of this encounter Plan of Treatment Not on file documented as of this encounter Visit Diagnoses Not on filedocumented in this encounter Care Teams Psychiatry Resident Relationship Specialty Start Date End Date Delmy Carrero DO PCP - General Family Medicine 01/14/20 11/08/20 Chloe Sebastian NP [address] [address] PCP - General 11/09/20 01/10/21 Delmy Carrero DO PCP - General Family Medicine 01/11/21 Aft, Amee Bustos MD PhD [address] [place] [address] Surgeon Surgical Oncology 03/29/20 Keren Watts MD [address] [address] Radiation Oncologist Radiation Oncology 03/29/20 Dima Grant DO [address] [address] Medical Oncologist/Superintendent Pier Hematology and Oncology 03/29/20 Sai Sesay MD [address] [facility] [address] [address] Consulting Physician Endocrinology Diabetes & Metabolism 05/04/24 documented as of this encounter
--- OUTSIDE RECORDS SUMMARY | 2025-10-28 09:10 | XMS_ITS | Clinical Summary ---
Author Organization [facility] [employer] [facility] Address [address] [facility] [address] Care Team Providers Care Calender Let Off Helper Name Role Phone Elton Lowe MD Primary Care Provide r Immunizations Immunization Administration Dates Next Due Fluzone Trivalent High Dose (65+ years) 07/29/20 18,09/04/2017 Pfizer Cominarty Covid-19 Prefilled Syringe (12+ yrs) 08/28/2025 Prevnar 13 Prefilled Syringe 09/04/2017 Social History Tobacco Use Types Packs/Day Years Used Date Smoking Tobacco: Never Assessed Comments Unknown Sex and Gender Information Value Date Recorded Sex Assigned at Not on file Legal Sex Female 2:32 AM EDT Gender Identity Not on file Sexual Orientation Not on file Plan of Treatment Health Maintenance Due Date Last Done Comments Depression: Screening Annual ly using PHQ-2/9 in Adults 18 yrs or above (or HM Modifier)([facility]) 1964 Hepatitis C Virus Infection in Adolescents and Adults: Screening (or Modifier) ([facility]) 1964 SDOH Screening Reminder: Maddison johnson for all adults ([facility]) 1964 Tobacco Smoking Cessation: i n Adults excluding Women: Behavioral and Pharmacotherapy Interventions ([facility]) 1964 DTaP/Tdap/Td Vaccines ([facility]) (1 - Tdap) 1965 Pneumococcal Vaccination Scr eening: Patients 50+ yrs of age ([facility]) (1 of 1 - PCV) 1996 09/04/2017 Zoster/Shingles Vaccine Seri es Screening: Adults aged 18+ yrs (or HM Modifiers)([facility]) (1 of 2) 1996 Osteoporosis Screening to Pr event Fractures: Women aged 65 years+ ([facility]) 2011 RSV Vaccines (1 - 1-dose 75+ series) 2021 Flu Vaccination: Ages 65+: Y early High Dose Recommended (or Modifier)([facility] ) 06/10/2025 07/29/2018, 7 COVID-19 Vaccine Screening: Initial Series and Booster Status ([facility]) ( - 2024- season) 2026 08/28/2025 Medical Devices Not on file Insurance [employer] Care Teams Calender Let Off Helper Relationship Specialty Start Date End Date Elton Lowe MD [address] [facility] [address] [address] PCP - General Family Medicine 09/04/17
--- OUTSIDE RECORDS SUMMARY | 2025-10-28 09:10 | XMS_ITS | Encounter Summary ---
Author Organization [facility] Address [address] [place] [address] Phone Care Team Providers Care Hogshead Head Matcher Name Role Phone Aft, Amee Bustos MD PhD Unavailable [phone] Keren Watts MD Unavailable Dima Grant DO Unavailable [phone] Delmy Carrero DO Primary Care Provider [phone] Sai Sesay MD Unavailable [phone] Encounter Details Date Type Department Care Team (Late st Contact Info) Description 10/17/2025 Results Follow-Up [facility] Medicine Endocrinology Metabolism and Lipid [address] [facility] Advanced Medicine 13th [place] [address] [place] [address] Sai Sesay MD [address] [facility] [address] [place] [address] T4, free, TSH Social History Tobacco Use Types Packs/Day Years Used Date Smoking Tobacco: Former Cigarettes 1 18 1 963 - 1980 Passive Smoke Exposure: Never Smokeless Tobacco: Never Alcohol Use Standard Drinks/Week Comments Yes 6 (1 standard drink = 0.6 oz pur e alcohol) [facility] Utilities Answer Date Recorded In the past 12 months has [employer], gas, oil, or water company threatened to [...] week 12/31/2023 How often do you attend [facility] or roman catholic services? More than 4 times per year 12/31/2023 Do you belong to any clubs o r organizations such as sikh groups, unions, fraternal or athletic groups, or [...] and heating? Not hard at all 12/31/2023 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 Not on file Not on file Not on file documented as of this encounter Plan of Treatment Not on file documented as of this encounter Visit Diagnoses Not on filedocumented in this encounter Care Teams Hogshead Head Matcher Relationship Specialty Start Date End Date Delmy Carrero DO [address] [facility] [address] [place] [address] PCP - General Family Medicine 01/11/21 Aft, Amee Bustos MD PhD [address] [place] [address] Surgeon Surgical Oncology 03/29/20 Keren Watts MD [address] [facility] [address] [place] [address] Radiation Oncologist Radiation Oncology 03/29/20 Dima Grant DO [address] [facility] [address] [place] [address] Medical Oncologist/Administration Specialist Hematology and Oncology 03/29/20 Sai Sesay MD [address] [address] Consulting Physician Endocrinology Diabetes & Metabolism 05/04/24 documented as of this encounter
== END 2025-10-28 08:56 | disposition home or self-care (01) ==
LOC: ANHFOHIMG 08:57
PROVIDERS: PCP Family Medicine; Visit Provider Internal Medicine Medical Oncology
DX: M81.0 Age-related osteoporosis without current pathological fracture (principal); M85.88 Other specified disorders of bone density and structure, other site; M85.852 Other specified disorders of bone density and structure, left thigh; M85.851 Other specified disorders of bone density and structure, right thigh
CPT/HCPCS: 77080